=== PATIENT | male | born 1950 | race Caucasian/White ===

== ENCOUNTER → 2023-11-06 10:47 | Outpatient (REF) | payer MEDICARE, OTHER, SELFPAY ==
[2023-11-06 12:03] LABS: % Basophils 0.7 % (0-2); % Eosinophils 2.5 % (0-6); % Immature Granulocytes 1.9 % (0-0.5); % Lymphocytes 24.6 % (20.5-51.1); % Monocytes 8.7 % (1.7-9.3); % Neutrophils 61.6 % (42.2-75.2); Absolute Basophils 0.1 10^3/uL (0-0.2); Absolute Eosinophils 0.2 10^3/uL (0-0.7); Absolute Immature Granulocytes 0.1 10^3/uL (0-0.05); Absolute Lymphocytes 1.7 10^3/uL (1.2-3.4); Absolute Monocytes 0.6 10^3/uL (0.1-0.6); Absolute Neutrophils 4.2 10^3/uL (1.4-6.5); Hematocrit 38.5 % (39.0-52.0); Hemoglobin 12.8 g/dL (13.0-18.0); Mean Corp Hgb Conc. 33.2 g/dL (33.0-37.0); Mean Corpuscular Hgb 31.1 pg (27.0-31.0); Mean Corpuscular Volume 93.4 fL (80.0-94.0); Mean Platelet Volume 9.6 fL (7.4-10.4); Nucleated Red Blood Cells % 0.9 % (-); Platelet Count 144 10^3/uL (130-400); Red Blood Cell Count 4.12 10^6/uL (4.70-6.10); Red Cell Dist. Width 15.3 % (11.5-14.5); White Blood Cell Count 6.9 10^3/uL (4.8-10.8)
[2023-11-06 12:26] LABS: ALT (SGPT) 35 U/L (0-50); AST (SGOT) 41 U/L (17-59); Albumin 4.7 g/dl (3.5-5.0); Alkaline Phosphatase 116 U/L (38-126); Blood Urea Nitrogen 21 mg/dl (9-20); Carbon Dioxide 27 mmol/L (22-30); Chloride 102 mmol/L (98-107); Glucose 99 mg/dl (70-99); Potassium 4.5 mmol/L (3.5-5.1); Sodium 139 mmol/L (135-145); Total Bilirubin 0.6 mg/dl (0.2-1.3); eGFR > 60.00
[2023-11-06 12:36] LABS: LDH 292 U/L (120-246)
[2023-11-08 00:19] LABS: IgG 411 mg/dl (700-1600)
[2023-11-08 00:50] LABS: IgA < 50 mg/dl (70-400); IgM < 25 mg/dl (40-230)
== END ==
LOC: REG 10:47
PROVIDERS: ATTENDING PHYSICIAN Internal Medicine Hematology & Oncology; FAMILY PHYSICIAN Family Medicine
DX: C91.10 Chronic lymphocytic leukemia of B-cell type not having achieved remission (principal); D80.1 Nonfamilial hypogammaglobulinemia; C44.310 Basal cell carcinoma of skin of unspecified parts of face
CPT/HCPCS: 36415; 80053; 82784; 83615; 85025

== ENCOUNTER → 2023-12-21 16:17 | Outpatient (REF) | payer MEDICARE, OTHER, SELFPAY | LOC: HWRAD 16:17 | PROVIDERS: ATTENDING PHYSICIAN Family Medicine | DX: R05.3 Chronic cough (principal) | CPT/HCPCS: 71046 ==

== ENCOUNTER → 2023-12-24 11:47 | Outpatient (REF) | payer MEDICARE, OTHER, SELFPAY ==
[2023-12-24 14:40] LABS: PSA, Total - Diagnostic 1.46 ng/ml (0.0-4.0)
== END ==
LOC: REG 11:47
PROVIDERS: ATTENDING PHYSICIAN Specialist; FAMILY PHYSICIAN Family Medicine
DX: C61 Malignant neoplasm of prostate (principal)
CPT/HCPCS: 36415; 84153

== ENCOUNTER → 2023-12-26 11:59 | Outpatient (REF) | payer MEDICARE, OTHER, SELFPAY | LOC: HWRAD 11:59 | PROVIDERS: ATTENDING PHYSICIAN Internal Medicine Rheumatology; FAMILY PHYSICIAN Family Medicine | DX: M47.9 Spondylosis, unspecified (principal) | CPT/HCPCS: 72070 ==

== ENCOUNTER → 2023-12-31 07:34 | Outpatient (REF) | payer MEDICARE, OTHER, SELFPAY | LOC: EMG 07:34 | PROVIDERS: ATTENDING PHYSICIAN Orthopaedic Surgery; FAMILY PHYSICIAN Family Medicine | DX: R20.0 Anesthesia of skin (principal) | CPT/HCPCS: 95886; 95909 ==

== ENCOUNTER → 2024-01-18 16:07 | Outpatient (REF) | payer MEDICARE, OTHER, SELFPAY ==
[2024-01-18 18:17] LABS: TSH Reflex To Free T4 4.64 uIU/ml (0.47-4.68)
== END ==
LOC: REG 16:07
PROVIDERS: ATTENDING PHYSICIAN Internal Medicine Cardiovascular Disease; FAMILY PHYSICIAN Family Medicine
DX: R00.2 Palpitations (principal)
CPT/HCPCS: 36415; 84443

== ENCOUNTER → 2024-01-24 10:40 | Outpatient (REF) | payer MEDICARE, OTHER, SELFPAY | LOC: RCS 10:40 | PROVIDERS: ATTENDING PHYSICIAN Internal Medicine Cardiovascular Disease; FAMILY PHYSICIAN Family Medicine | DX: R00.2 Palpitations (principal) | CPT/HCPCS: 93225; 93226 ==

== ENCOUNTER → 2024-02-19 13:47 | Outpatient (REF) | payer MEDICARE, OTHER, SELFPAY | LOC: RCS 13:47 | PROVIDERS: ATTENDING PHYSICIAN Internal Medicine Cardiovascular Disease; FAMILY PHYSICIAN Family Medicine | DX: R00.2 Palpitations (principal); I34.0 Nonrheumatic mitral (valve) insufficiency; I27.20 Pulmonary hypertension, unspecified; I35.0 Nonrheumatic aortic (valve) stenosis | CPT/HCPCS: 93306 ==

== ENCOUNTER → 2024-02-21 15:56 | Outpatient (REF) | payer MEDICARE, OTHER, SELFPAY | LOC: MRI 3T 15:56 | PROVIDERS: ATTENDING PHYSICIAN Orthopaedic Surgery; FAMILY PHYSICIAN Family Medicine | DX: M54.12 Radiculopathy, cervical region (principal) | CPT/HCPCS: 72141 ==

== ENCOUNTER → 2024-03-05 07:46 | Outpatient (REF) | payer MEDICARE, OTHER, SELFPAY ==
[2024-03-05 09:05] LABS: % Basophils 0.7 % (0-2); % Eosinophils 2.8 % (0-6); % Immature Granulocytes 3.1 % (0-0.5); % Lymphocytes 31.6 % (20.5-51.1); % Monocytes 8.6 % (1.7-9.3); % Neutrophils 53.2 % (42.2-75.2); Absolute Basophils 0.1 10^3/uL (0-0.2); Absolute Eosinophils 0.2 10^3/uL (0-0.7); Absolute Immature Granulocytes 0.2 10^3/uL (0-0.05); Absolute Lymphocytes 2.2 10^3/uL (1.2-3.4); Absolute Monocytes 0.6 10^3/uL (0.1-0.6); Absolute Neutrophils 3.6 10^3/uL (1.4-6.5); Hematocrit 32.4 % (39.0-52.0); Hemoglobin 10.9 g/dL (13.0-18.0); Mean Corp Hgb Conc. 33.6 g/dL (33.0-37.0); Mean Corpuscular Hgb 31.5 pg (27.0-31.0); Mean Corpuscular Volume 93.6 fL (80.0-94.0); Mean Platelet Volume 9.2 fL (7.4-10.4); Platelet Count 145 10^3/uL (130-400); Red Blood Cell Count 3.46 10^6/uL (4.70-6.10); Red Cell Dist. Width 16.3 % (11.5-14.5); White Blood Cell Count 6.8 10^3/uL (4.8-10.8)
[2024-03-05 10:25] LABS: ALT (SGPT) 45 U/L (0-50); AST (SGOT) 48 U/L (17-59); Albumin 4.8 g/dl (3.5-5.0); Alkaline Phosphatase 152 U/L (38-126); Blood Urea Nitrogen 23 mg/dl (9-20); Calcium 9.9 mg/dl (8.4-10.2); Carbon Dioxide 26 mmol/L (22-30); Chloride 103 mmol/L (98-107); Glucose 88 mg/dl (70-99); LDH 290 U/L (120-246); Potassium 4.4 mmol/L (3.5-5.1); Sodium 138 mmol/L (135-145); Total Bilirubin 0.7 mg/dl (0.2-1.3); Total Protein 7.1 g/dl (6.3-8.2); eGFR > 60.00
[2024-03-05 10:27] LABS: PSA, Total - Diagnostic 1.22 ng/ml (0.0-4.0)
[2024-03-05 13:59] LABS: Reticulocyte Count 2.7 % (0.4-2.8)
[2024-03-05 15:37] LABS: Iron 165 ug/dl (49-181)
[2024-03-05 15:41] LABS: Folate 15.3 ng/ml (2.76-20); Vitamin B12 907 pg/ml (239-931)
[2024-03-05 15:49] LABS: Percent Saturation 53 % (20-50); Total Iron Binding Capacity 310 ug/dl (261-462)
[2024-03-06 01:27] LABS: IgG 335 mg/dl (700-1600)
[2024-03-06 03:00] LABS: IgA < 50 mg/dl (70-400); IgM < 25 mg/dl (40-230)
[2024-03-07 17:55] LABS: Haptoglobin 246 mg/dL (30-200)
== END ==
LOC: REG 07:46
PROVIDERS: ATTENDING PHYSICIAN Internal Medicine Hematology & Oncology; FAMILY PHYSICIAN Family Medicine; REFERRING PHYSICIAN Specialist
DX: C61 Malignant neoplasm of prostate (principal); C91.10 Chronic lymphocytic leukemia of B-cell type not having achieved remission; D80.1 Nonfamilial hypogammaglobulinemia; C44.320 Squamous cell carcinoma of skin of unspecified parts of face; D50.9 Iron deficiency anemia, unspecified; D51.9 Vitamin B12 deficiency anemia, unspecified
CPT/HCPCS: 36415; 80053; 82607; 82728; 82746; 82784; 83010; 83540; 83550; 83615; 84153; 85025; 85045

== ENCOUNTER → 2024-03-10 13:13 | Outpatient (REF) | payer MEDICARE, OTHER, SELFPAY | LOC: RAD 13:13 | PROVIDERS: ATTENDING PHYSICIAN Physical Medicine & Rehabilitation; FAMILY PHYSICIAN Family Medicine | DX: R22.1 Localized swelling, mass and lump, neck (principal) | CPT/HCPCS: 72127; Q9967 ==

== ENCOUNTER → 2024-04-28 11:39 | Outpatient (REF) | payer MEDICARE, OTHER, SELFPAY | LOC: PAVMRI 11:39 | PROVIDERS: ATTENDING PHYSICIAN Neurological Surgery; FAMILY PHYSICIAN Family Medicine | DX: G95.89 Other specified diseases of spinal cord (principal) | CPT/HCPCS: 72156; A9575 ==

== ENCOUNTER → 2024-05-15 09:29 | Outpatient (REF) | payer MEDICARE, OTHER, SELFPAY ==
[2024-05-15 09:57] LABS: Hematocrit 33.5 % (39.0-52.0); Hemoglobin 11.6 g/dL (13.0-18.0); Mean Corp Hgb Conc. 34.6 g/dL (33.0-37.0); Mean Corpuscular Hgb 32.8 pg (27.0-31.0); Mean Corpuscular Volume 94.6 fL (80.0-94.0); Mean Platelet Volume 9.7 fL (7.4-10.4); Platelet Count 171 10^3/uL (130-400); Red Blood Cell Count 3.54 10^6/uL (4.70-6.10); Red Cell Dist. Width 15.9 % (11.5-14.5); White Blood Cell Count 8.7 10^3/uL (4.8-10.8)
[2024-05-15 10:04] VITALS: BP 157/100; BP_SYST 69
[2024-05-15 10:04] LABS: PT 13.2 Sec (11.4-14.6)
[2024-05-15 11:14] VITALS: BP 148/90; BP_SYST 61
[2024-05-15 11:41] VITALS: BP 159/80
== END ==
LOC: RADI 09:29
PROVIDERS: ATTENDING PHYSICIAN Neurological Surgery; FAMILY PHYSICIAN Family Medicine
DX: C49.0 Malignant neoplasm of connective and soft tissue of head, face and neck (principal); D68.8 Other specified coagulation defects
CPT/HCPCS: 88305; 20206; 36415; 76942; 85027; 85610; 88333; 88341; 88342; 99152; 99153

== ENCOUNTER → 2024-06-23 16:42 | Outpatient (REF) | payer MEDICARE, OTHER, SELFPAY ==
[2024-06-23 19:25] LABS: PSA, Total - Diagnostic 1.32 ng/ml (0.0-4.0)
== END ==
LOC: REG 16:42
PROVIDERS: ATTENDING PHYSICIAN Specialist; FAMILY PHYSICIAN Family Medicine
DX: C61 Malignant neoplasm of prostate (principal)
CPT/HCPCS: 36415; 84153

== ENCOUNTER → 2024-09-15 13:16 | Outpatient (REF) | payer MEDICARE, OTHER, SELFPAY | LOC: PAVMRI 13:16 | PROVIDERS: ATTENDING PHYSICIAN Internal Medicine; FAMILY PHYSICIAN Family Medicine | DX: C80.1 Malignant (primary) neoplasm, unspecified (principal) | CPT/HCPCS: 72158; A9575 ==

== ENCOUNTER → 2024-10-03 15:15 | Outpatient (REF) | payer MEDICARE, OTHER, SELFPAY | LOC: RAD 15:15 | PROVIDERS: ATTENDING PHYSICIAN Internal Medicine; FAMILY PHYSICIAN Family Medicine | DX: C80.1 Malignant (primary) neoplasm, unspecified (principal) | CPT/HCPCS: 70491; 71260; 74177; Q9967 ==

== ENCOUNTER 2024-10-12 18:02 | Inpatient (IN) | payer MEDICARE, OTHER, SELFPAY ==
[2024-10-12] VITALS (18 sets, daily range): BP systolic 126–186; BP diastolic 78–125; BMI 25.3
--- NOTE | 2024-10-12 11:53 | ED.GENMED ---
History of Present Illness
General
Chief Complaint: Weakness
Source: patient
Exam Limitations: none
Time Seen by Provider: 10/12/24 11:45
History of Present Illness
History of Present Illness:
See MDM
Past History
Past History
ED Past Medical History: Cancer
ED Past Surgical History: None
Social History
Tobacco: Non-smoker
Alcohol: None
Drug: None
Personal:
Living: with family
Phy Exam
Physical Exam
Physical Exam:
See MDM
Course
Orders/Labs/Results
Orders:
Orders
10/12/24 11:51
0.9% Sodium Chloride 1000 ml [Nss] 1,000 ml IV BOLUS
CR Chest - 2 Views Urgent
Comment:
Reason For Exam: generalized weakness, cough
10/12/24 11:52
Electrocardiogram (*1) Urgent
Reason for Study: Fatigue / Weakness
EKG- Treatment ONCE
10/12/24 12:03
COVID-19 Antigen Urgent
Source: Nasal Swab
Complete Blood Count/With Diff Urgent
Comprehensive Metabolic Panel Urgent
Influenza A+B Rapid Molecular Urgent
[facility] Source: Nasal Swab
Specimen Description:
10/12/24 12:34
Urinalysis Reflex To Culture Urgent
Date Specimen was Collected: 10/12/24
Time Specimen was Collected: 12:31
Urine Microscopic Reflex Cult Urgent
Urine Culture Urgent
[facility]ION Source: U
Specimen Description:
Date Specimen was Collected: 10/12/24
Time Specimen was Collected: 12:31
10/12/24 16:11
Cefepime HCl [Maxipime] 1,000 mg IV NOW STA
Abnormal Lab Results
10/12/24 10/12/24
12:03 12:34
RBC 4.08 L 10^6/uL
(4.70-6.10)
Hgb 11.7 L g/dL
(13.0-18.0)
Hct 34.5 L %
(39.0-52.0)
RDW 16.4 H %
(11.5-14.5)
Abs Immat Gran (auto) 0.8 H 10^3/uL
(0-0.05)
Absolute Neuts (auto) 7.1 H 10^3/uL
(1.4-6.5)
Absolute Lymphs (auto) 1.0 L 10^3/uL
(1.2-3.4)
Absolute Monos (auto) 1.2 H 10^3/uL
(0.1-0.6)
Immature Gran % 7.1 H %
(0-0.5)
Lymphocytes % 9.8 L %
(20.5-51.1)
Monocytes % 11.3 H %
(1.7-9.3)
Sodium 129 L mmol/L
(135-145)
Carbon Dioxide 21 L mmol/L
(22-30)
Creatinine 0.6 L mg/dL
(0.7-1.3)
AST 81 H U/L
(17-59)
ALT 90 H U/L
(0-50)
Alkaline Phosphatase 342 H U/L
(38-126)
Leukocyte Esterase Rfl 2+ A
(Negative)
Urine WBC (Reflex) 11-15 A /HPF
(0-5)
Urine Bacteria (Reflex) Few A
(Negative)
10/12/24 12:03
10/12/24 12:03
Vital Signs
Initial and Last Documented VS:
Initial Vital Signs
Temp Pulse Resp Pulse Ox
98.7 F 67 16 99
10/12/24 11:50 10/12/24 11:50 10/12/24 11:50 10/12/24 11:50
Last Documented Vital Signs
Temp Pulse Resp BP Pulse Ox
98.7 F 73 23 168/107 97
10/12/24 11:50 10/12/24 15:30 10/12/24 14:51 10/12/24 15:00 10/12/24 15:30
MDM/Problems Addressed
Differential Diagnosis Includes:
HPI and MDM Narrative:
74-year-old male presenting for generalized weakness and fatigue. Patient does have a history of malignant cancer. Prior records indicate a recent CT scan showing worsening malignancy. He complains of generalized fatigue and malaise. He does
acknowledge that he is urinating more frequently but denies fever or pain with urination. He denies abdominal pain. Patient admits to a slight cough but denies shortness of breath.
IV fluids started by EMS. Will continue IV fluids. Will obtain basic blood work looking for metabolic abnormalities. Will obtain chest x-ray given the mild cough will obtain viral testing. Will check urinalysis
Physical exam
General: Weak and fatigued
HEENT: protecting airway. Dry mucous membrane
Neck: appears supple
CV: No evidence of cyanosis. Regular rate and rhythm
Resp: No accessory muscle use
Abd: Non-distended. Soft nontender
Extremities: No deformities
Neuro: alert
Psych: Normal affect
Skin: Intact
Problems Addressed including Acute and Chronic Conditions affecting care:
1. Generalized fatigue
Acuity: acute
Prognosis: stable
Details: Will obtain basic blood work and urinalysis
2. Cough
Acuity: acute
Prognosis: stable
Details: Obtain viral testing and chest x-ray
3. Dehydration
Acuity: acute
Prognosis: stable
Details: Will continue IV fluids
Updates
Blood work consistent with mild hyponatremia. Patient still not feeling well after IV fluids. Urinalysis concerning for developing infection. He is somewhat immunocompromised. Will start antibiotics and admit
Differential Diagnosis (but not limited to): Influenza, dehydration, viral illness, UTI
Testing considered: CT head but denies headache and has no focal deficits
Drug therapy (if applicable): OTC meds, please see d/c instruction regarding Rx drugs
Amount and/or Complexity of Data Reviewed
Clinical info obtained from: Patient
External data reviewed: Recent CT scan shows worsening malignancy
Labs I independently reviewed (but not limited to): Mild hyponatremia
Radiology: X-ray independently reviewed: Chest x-ray clear
Pulse Ox: not hypoxic
EKG independently reviewed: Sinus rhythm, PVCs, normal axis
Fisher Eel Spear: N/A
Critical Care: N/A
Risk of Complication:
Social Determinants of health: Good social support
Discussed with other providers: Hospitalist
Escalation of Care includes Admit/Obs: Given immunocompromise with dehydration and UTI, will admit
Occasional wrong word or 'sound a like' substitutions may have occurred due to the inherent limitations of voice recognition software. Read the chart carefully and recognize, using context, where substitutions have occurred.
*Critical Care Note
Total Time (30-74mins, 75-104mins- exclusive of procedures): Not Applicable
ED Attending Note
-
Portions of this chart may have been created with voice recognition software.� Occasional wrong word or��sound alike� substitutions may have occurred due to the inherent limitations of voice recognition software.
Discharge Plan
Departure
Patient Disposition: Admit
Date of Disposition: 10/12/24
Time of Disposition: 16:17
Admit to: Med/Surg
Presentation/result/management discussed w/ accepting MD/DO: Hospitalist
Discharge Problem:
Acute hyponatremia, Acute UTI
Prescriptions:
No Action
niacinamide [Niacin (niacinamide)] 500 MG tablet
500 mg PO BID
montelukast 10 MG tablet
10 mg PO HS
teoqsackcpx-uiqusueek-zpu C-Mn 1 TAB tablet
1 tab PO DAILY
metoprolol tartrate 25 MG tablet
50 mg PO DAILY
fluticasone propion-salmeterol 1 EACH aerosol powdr breath activated
1 ea IH BID
Multivitamin
1 tab PO DAILY
acetaminophen 500 mg Tablet
500 mg PO Q6H PRN (Reason: pain)
ibuprofen 400 mg Tablet
400 mg PO Q6H PRN (Reason: pain)
Referrals:
Roxi Olivarez PA [Family Provider] -
Interventions
Interventions:
*Risk Screen - Suicide Last Done: 10/12/24 11:55
*General Assessment Last Done: 10/12/24 11:55
*Neglect/Abuse Screening Last Done: 10/12/24 11:55
ED- Fall Risk Assessment Last Done: 10/12/24 11:55
*ED COVID-19 Vaccine History Last Done: 10/12/24 11:55
ED- Cardiac Assessment Last Done: 10/12/24 12:28
ED- Neurological Assessment Last Done: 10/12/24 12:28
ED- Pulmonary Assessment Last Done: 10/12/24 12:28
Discharge Date and Time
Print Language: NICARAGUAN
[2024-10-12] MEDS: NSS 1000 IV ×2 (12:10→21:46)
[2024-10-12 12:15] LABS: Hematocrit 34.5 % (39.0-52.0); Hemoglobin 11.7 g/dL (13.0-18.0); Mean Corp Hgb Conc. 33.9 g/dL (33.0-37.0); Mean Corpuscular Hgb 28.7 pg (27.0-31.0); Mean Corpuscular Volume 84.6 fL (80.0-94.0); Mean Platelet Volume 8.9 fL (7.4-10.4); Platelet Count 238 10^3/uL (130-400); Red Blood Cell Count 4.08 10^6/uL (4.70-6.10); Red Cell Dist. Width 16.4 % (11.5-14.5); White Blood Cell Count 10.6 10^3/uL (4.8-10.8)
[2024-10-12 12:35] LABS: ALT (SGPT) 90 U/L (0-50); AST (SGOT) 81 U/L (17-59); Albumin 4.1 g/dl (3.5-5.0); Alkaline Phosphatase 342 U/L (38-126); Blood Urea Nitrogen 14 mg/dl (9-20); Calcium 8.8 mg/dl (8.4-10.2); Carbon Dioxide 21 mmol/L (22-30); Chloride 98 mmol/L (98-107); Estimated Creatinine Clearance 101 ml/min; Glucose 93 mg/dl (70-99); Potassium 4.2 mmol/L (3.5-5.1); Sodium 129 mmol/L (135-145); Total Bilirubin 0.9 mg/dl (0.2-1.3); Total Protein 6.4 g/dl (6.3-8.2); eGFR > 60.00
[2024-10-12 12:53] LABS: COVID-19 Antigen Negative (Negative)
--- NOTE | 2024-10-12 13:34 | EDRN ---
Dr. Ferrer in room w/ pt at this time.
[2024-10-12 13:54] LABS: Urine Albumin Negative (Neg - Trace); Urine Bilirubin Negative (Negative); Urine Character Clear (Clear); Urine Color Yellow; Urine Glucose Negative (Negative); Urine Ketone Negative (Negative); Urine Leukocyte 2+ (Negative); Urine Nitrite Negative (Negative); Urine Occult Blood Negative (Negative); Urine Urobilinogen Negative (Neg - 1+)
[2024-10-12 14:24] LABS: Urine Bacteria Few (Negative); Urine Red Blood Cell 0-2 /HPF (0-2); Urine Squamous Cell 0-2 /LPF (Few)
[2024-10-12 14:26] LABS: % Basophils 0.9 % (0-2); % Eosinophils 4.3 % (0-6); % Immature Granulocytes 7.1 % (0-0.5); % Lymphocytes 9.8 % (20.5-51.1); % Monocytes 11.3 % (1.7-9.3); % Neutrophils 66.6 % (42.2-75.2); Absolute Basophils 0.1 10^3/uL (0-0.2); Absolute Eosinophils 0.5 10^3/uL (0-0.7); Absolute Immature Granulocytes 0.8 10^3/uL (0-0.05); Absolute Monocytes 1.2 10^3/uL (0.1-0.6); Absolute Neutrophils 7.1 10^3/uL (1.4-6.5); Nucleated Red Blood Cells % 0.9 % (-)
[2024-10-12] MEDS: MAXIPIME 1000 MG IV (16:34)
--- NOTE | 2024-10-12 17:05 | EDRN ---
Pt spilled urinal w/ bed and bedclothes changed and good pericare administered at this time.
--- NOTE | 2024-10-12 17:30 | EDRN ---
Dr. Kaiser in room w/ pt at this time.
--- NOTE | 2024-10-12 17:45 | HPS.HSE ---
Family Physician
-
Family Physician: Roxi Olivarez
Chief Complaint
-
Weakness, failure to thrive
History of Present Illness
74-year-old male here complaining of progressive weakness and failure to thrive for the past 5 days. Denies falls or injuries.
Denies dysuria or pain with urination but has had polyuria that started several days ago. Denies fevers, chills, nausea or vomiting. Denies diarrhea.
Was ambulating with a cane up until Sunday of last week when he switched to using a walker. Also has progressive anorexia. No reported weight loss.
Is getting immunotherapy for metastatic pleomorphic sarcoma at the [facility]. Next dose is due on Sunday, October 13.
Recent [place] body CT showed progression of metastatic disease throughout his axial skeleton.
Is on palliative care but hospice has not been mentioned so far by his treating oncologist.
Medical History
Past Medical History
Past Medical History: Reports Other
Additional Past Medical History:
Metastatic pleomorphic sarcoma
CLL, B-cell
Prostate cancer
Essential hypertension
GERD
Nephrolithiasis
Moderate/severe mitral regurgitation
Aortic sclerosis
SVT
JIMMIE
Skin cancer
Diverticulosis
Left ureteral stricture
Past Surgical History: Reports Other
Additional Past Surgical History:
TURP
Umbilical hernia repair
Parotid surgery for basal cell cancer
Bilateral cataracts
Social History
Tobacco: Non-smoker
Alcohol: None
Drug: None
Personal:
Living: With Family
Family History
Family History: Not pertinent
Allergies / Home Medications
Allergies reflects when Allergies were last updated in [employer].
Home Medications with original date entered in [employer]
Allergy/Medication List:
Allergies
Allergy/AdvReac Type Severity Reaction Status Date / Time
amoxicillin Allergy chills,diar Verified 10/12/24 11:43
beatris,vomiti
ng
seasonal Allergy congestion Uncoded 10/12/24 11:43
Home Medications
fluticasone 232 mcg-salmeterol 14 mcg/actuation breath activated powdr 1 ea IH BID 11/10/21
pldpxiogiib-wvaclshgs-nyu C-Mn 750 mg-600 mg-55 mg-5 mg tablet 1 tab PO DAILY 11/10/21
metoprolol tartrate 25 mg tablet 50 mg PO DAILY 11/10/21
montelukast 10 mg tablet 10 mg PO HS 11/10/21
niacinamide 500 mg tablet (Niacin (niacinamide)) 500 mg PO BID 11/10/21
Multivitamin 1 tab PO DAILY 12/20/21
acetaminophen 500 mg tablet 500 mg PO Q6H PRN pain 05/15/24
ibuprofen 400 mg tablet 400 mg PO Q6H PRN pain 05/15/24
Review of Systems
-
History Source: Patient
A 12 point ROS was completed and negative except as noted: Yes
Physical Exam
Vital Signs
Vital Signs
Temp Pulse Resp BP Pulse Ox
98.7 F 73 23 168/107 97
10/12/24 11:50 10/12/24 15:30 10/12/24 14:51 10/12/24 15:00 10/12/24 15:30
Physical Exam
General: No Apparent Distress, Comfortable and Appears Chronically Ill
HEENT: NormoCephalic and Anicteric; No Moist mucous membranes
Respiratory: Clear
Cardiac: S1/S2 and Regular Rhythm
GI: Soft, Non Tender and Non Distended
Genito-urinary: Deferred by me
Musculoskeletal: No Clubbing, No Cyanosis and No Edema
Skin: Warm and Dry
Neuro: AO x 3
Hematologic/Lymphatic: No Lymphadenopathy
Psych: Calm
Laboratory Results
-
10/12/24 12:03
10/12/24 12:03
Laboratory Results
Total Bilirubin 0.9 mg/dl (0.2-1.3) 10/12/24 12:03
AST 81 U/L (17-59) H 10/12/24 12:03
ALT 90 U/L (0-50) H 10/12/24 12:03
Alkaline Phosphatase 342 U/L (38-126) H 10/12/24 12:03
Impression/Plan
-
Generalized weakness -with failure to thrive. Suspect progression of underlying malignancy as the etiology. Volume depletion appears to be contributing given anorexia and poor oral intake. Rule out infection such as UTI.
Admit to [facility]. IV fluids ordered. Check urine culture. Continue antibiotics empirically.
Chest x-ray notes atelectasis.
PT/OT.
Possible UTI -pyuria noted on urinalysis along with frequency. Urine culture sent. Continue empiric antibiotics.
Hyponatremia -suspect hypovolemic. Sodium 129. Normal saline ordered. Check urine studies. Check TSH, cortisol.
Elevated transaminases/alkaline phosphatase -bilirubin normal. Check GGT. Recent CT scan dated 10/03/2024 showed intrahepatic biliary duct dilation within the posterior right hepatic lobe. No discrete obstructing lesion visualized. 1.4 cm
hypodensity within the posterior hepatic dome. Bile ducts and gallbladder and pancreas were normal. Recheck LFTs in the morning.
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 Overall prognosis appears poor. Encouraged patient to address goals of care and prognosis with his oncologist.
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
Essential hypertension with hypertensive urgency -resume metoprolol. Suspect uncontrolled pressure related to pain.
Chronic normocytic anemia -suspect related to malignancy. Hemoglobin at baseline.
GERD
Nephrolithiasis
Diverticulosis
Full code
[2024-10-12 18:11] LABS: Osmolality Urine 253 mOsm/kg (300-900)
[2024-10-12 18:20] LABS: Urine Sodium 96 mmol/L (30-90)
--- NOTE | 2024-10-12 18:23 | EDRN ---
Dr. Kaiser was TT'd at this time that med rec is now completed on this pt.
[2024-10-12 18:27] LABS: GGTP 690 U/L (15-73)
[2024-10-12 19:15] LABS: TSH 4.25 uIU/ml (0.47-4.68)
[2024-10-12] MEDS: COLACE 100 MG PO (22:32)
[2024-10-12] MEDS: NEURONTIN 200 MG PO (22:33)
[2024-10-12] MEDS: SINGULAIR 10 MG PO (22:33)
[2024-10-12] MEDS: STERILE WATER FOR INJECTION 10 ML IV (22:33)
[2024-10-12] MEDS: ROCEPHIN 1000 MG IV (22:33)
[2024-10-12] MEDS: LOVENOX 40 MG SC (22:34)
[2024-10-12] MEDS: TOPROL XL 75 MG PO (22:34)
[2024-10-12] MEDS: NEURONTIN 100 MG PO (22:36)
[2024-10-12] MEDS: TYLENOL 650 MG PO (23:10)
--- NOTE | 2024-10-13 00:02 | PTCARENOTE ---
2129 pt rec'vd from ER, aaox3, IVF meliza Johnson AC, denies pain, oriented to unit,.
--- NOTE | 2024-10-13 06:13 | PTCARENOTE ---
Buprenorphine patch 5mg on the back of pts right shoulder..it does not have a date so don't know when it needs to be changed. In reviewing his home med profile the patch is not on profile, I left VM for his to contact us with the date she
applied it and [employer] notified waiting for call.
[2024-10-13 07:25] VITALS: BP 144/98
[2024-10-13 09:03] LABS: ALT (SGPT) 80 U/L (0-50); AST (SGOT) 54 U/L (17-59); Alkaline Phosphatase 345 U/L (38-126); Blood Urea Nitrogen 13 mg/dl (9-20); Calcium 8.5 mg/dl (8.4-10.2); Carbon Dioxide 20 mmol/L (22-30); Chloride 100 mmol/L (98-107); Estimated Creatinine Clearance 101 ml/min; Glucose 86 mg/dl (70-99); Sodium 134 mmol/L (135-145); Total Bilirubin 0.7 mg/dl (0.2-1.3); Total Protein 6.2 g/dl (6.3-8.2); eGFR > 60.00
[2024-10-13] MEDS: NEURONTIN 200 MG PO ×3 (09:17→21:43)
[2024-10-13] MEDS: TOPROL XL 75 MG PO ×2 (09:17→20:53)
[2024-10-13] MEDS: COLACE PO ×2 (09:17→09:20)
[2024-10-13 11:15] VITALS: BP 160/98; PULSE 74; O2SAT 96
[2024-10-13 11:20] VITALS: BP 160/98; PULSE 75; O2SAT 97
--- NOTE | 2024-10-13 12:03 | W.PN.HOSP.TC ---
Today's Communication/Plan
-
Monitor vital signs see plan
PT/OT
Discussed with spouse at bedside
Continue antibiotics
Follow urine culture
Assessment / Plan
Assessment / Plan
General: No Apparent Distress, Comfortable and Appears Chronically Ill
HEENT: NormoCephalic and Anicteric; No Moist mucous membranes
Respiratory: Clear
Cardiac: S1/S2 and Regular Rhythm
GI: Soft, Non Tender and Non Distended
Musculoskeletal: No Edema
Neuro: AO x 3
Psych: Calm
Generalized weakness -with failure to thrive. Suspect progression of underlying malignancy as the etiology. Volume depletion appears to be contributing given anorexia and poor oral intake. Also suspect secondary to urinary tract infection.
Urine culture pending, continue with antibiotics
Chest x-ray notes atelectasis.
PT/OT.
Possible UTI -pyuria noted on urinalysis along with frequency. Urine culture sent. Continue empiric antibiotics.
Hyponatremia -monitor
Elevated transaminases/alkaline phosphatase -bilirubin normal. Check GGT. Recent CT scan dated 10/03/2024 showed intrahepatic biliary duct dilation within the posterior right hepatic lobe. No discrete obstructing lesion visualized. 1.4 cm
hypodensity within the posterior hepatic dome. Bile ducts and gallbladder and pancreas were normal. monitor lft's
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 Overall prognosis appears poor. Encouraged patient to address goals of care and prognosis with his oncologist.
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
Essential hypertension with hypertensive urgency -resumed metoprolol. Suspect uncontrolled pressure related to pain.
Chronic normocytic anemia -suspect related to malignancy. Hemoglobin at baseline.
GERD
Nephrolithiasis
Diverticulosis
Full code
These discussed with spouse at bedside. Patient started seeing palliative care from past couple weeks. Patient will be seeing his oncologist soon for further management
Anticipated Discharge: 24 - 48 hours
Subjective/Interval History
-
Date of Service: October 13, 2024
has some crampy pain
Objective Data
-
Labs:
Laboratory Results
10/13/24
07:31
Sodium 134 L
Potassium 4.0
Chloride 100
Carbon Dioxide 20 L
BUN 13
Creatinine 0.6 L
Glucose 86
Calcium 8.5
Total Bilirubin 0.7
AST 54
ALT 80 H
Alkaline Phosphatase 345 H
Vital Signs:
Vital Signs
Temp Pulse Resp BP Pulse Ox
98.0 F 84 16 144/98 95
10/13/24 07:25 10/13/24 07:25 10/13/24 07:25 10/13/24 07:25 10/13/24 07:25
I&O
10/12/24 10/13/24 10/14/24
06:59 06:59 06:59
Intake Total 1080 / 1080
Output Total 2049
Balance -970 / -970
[2024-10-13 15:05] VITALS: BP 124/77
--- NOTE | 2024-10-13 15:12 | CM ---
Addendum entered by Diane Barroso 10/13/24 15:46:
Accepted by [facility] for home care needs
Original Note:
Adm dx - weakness/volume depletion
Met with pts at bedside - pt sleeping
Per pt was independent, ambulated with rolling walker or single point cane until approx this past week - became more weak
DME - single point cane, rolling walker, raised toilet seat
SNF - denies past hx
HH - current with [facility] - receives RN/OT/OT
Has ride at discharge
PCP - Dr Murphy
Pharm - [facility]
PT/OT recs - - Will send referral in [facility] for [facility]
Plan - anticipate home with [facility] - [facility]
[2024-10-13] MEDS: ADVAIR HFA 230/21 MCG INHALER INH (15:42)
[2024-10-13] MEDS: LOVENOX 40 MG SC (18:49)
[2024-10-13] MEDS: SINGULAIR 10 MG PO (18:49)
[2024-10-13] MEDS: TYLENOL 650 MG PO (18:50)
[2024-10-13] MEDS: ADVAIR HFA 230/21 MCG INHALER 2 PUFF INH (20:32)
[2024-10-13] MEDS: COLACE 100 MG PO (20:51)
[2024-10-13] MEDS: ROCEPHIN 1000 MG IV (21:43)
[2024-10-13] MEDS: NEURONTIN 100 MG PO (21:43)
[2024-10-13] MEDS: STERILE WATER FOR INJECTION 10 ML IV (21:44)
[2024-10-13 22:49] VITALS: BP 133/90
[2024-10-14 06:07] LABS: ALT (SGPT) 74 U/L (0-50); AST (SGOT) 59 U/L (17-59); Albumin 3.7 g/dl (3.5-5.0); Alkaline Phosphatase 313 U/L (38-126); Blood Urea Nitrogen 18 mg/dl (9-20); Calcium 8.9 mg/dl (8.4-10.2); Carbon Dioxide 22 mmol/L (22-30); Chloride 101 mmol/L (98-107); Estimated Creatinine Clearance 87 ml/min; Glucose 88 mg/dl (70-99); Potassium 4.2 mmol/L (3.5-5.1); Sodium 133 mmol/L (135-145); Total Bilirubin 0.5 mg/dl (0.2-1.3); eGFR > 60.00
[2024-10-14 06:16] LABS: Hematocrit 36.2 % (39.0-52.0); Hemoglobin 11.8 g/dL (13.0-18.0); Mean Corp Hgb Conc. 32.6 g/dL (33.0-37.0); Mean Corpuscular Hgb 28.6 pg (27.0-31.0); Mean Corpuscular Volume 87.7 fL (80.0-94.0); Mean Platelet Volume 8.9 fL (7.4-10.4); Platelet Count 249 10^3/uL (130-400); Red Blood Cell Count 4.13 10^6/uL (4.70-6.10); White Blood Cell Count 11.9 10^3/uL (4.8-10.8)
[2024-10-14 06:58] VITALS: BP 171/92
[2024-10-14] MEDS: ADVAIR HFA 230/21 MCG INHALER 2 PUFF INH ×2 (07:13→19:35)
[2024-10-14 08:02] LABS: % Eosinophils 3.3 % (0-6); % Immature Granulocytes 7.7 % (0-0.5); % Lymphocytes 8.9 % (20.5-51.1); % Monocytes 11.2 % (1.7-9.3); % Neutrophils 67.9 % (42.2-75.2); Absolute Basophils 0.1 10^3/uL (0-0.2); Absolute Eosinophils 0.4 10^3/uL (0-0.7); Absolute Immature Granulocytes 0.9 10^3/uL (0-0.05); Absolute Lymphocytes 1.1 10^3/uL (1.2-3.4); Absolute Monocytes 1.3 10^3/uL (0.1-0.6); Absolute Neutrophils 8.1 10^3/uL (1.4-6.5); Nucleated Red Blood Cells % 0.7 % (-)
[2024-10-14] MEDS: COLACE PO (08:48)
[2024-10-14] MEDS: NEURONTIN 200 MG PO ×3 (08:48→22:24)
[2024-10-14] MEDS: TOPROL XL 75 MG PO ×2 (08:48→20:06)
--- NOTE | 2024-10-14 11:21 | W.PN.HOSP.TC ---
Today's Communication/Plan
-
Monitor vital signs see plan
Continue with antibiotics
Follow urine culture for final sensitivities
PT/OT
Possible discharge tomorrow
Assessment / Plan
Assessment / Plan
General: No Apparent Distress, Comfortable and Appears Chronically Ill
HEENT: NormoCephalic and Anicteric; No Moist mucous membranes
Respiratory: Clear
Cardiac: S1/S2 and Regular Rhythm
GI: Soft, Non Tender and Non Distended
Musculoskeletal: No Edema
Neuro: AO x 3
Psych: Calm
Generalized weakness -with failure to thrive. Suspect progression of underlying malignancy as the etiology. Volume depletion appears to be contributing given anorexia and poor oral intake. Also suspect secondary to urinary tract infection.
Urine culture growing Enterococcus, continue with antibiotics
Chest x-ray notes atelectasis.
PT/OT.
Possible UTI -pyuria noted on urinalysis along with frequency. Urine culture sent. Continue empiric antibiotics.
Hyponatremia -monitor
Elevated transaminases/alkaline phosphatase -bilirubin normal. Check GGT. Recent CT scan dated 10/03/2024 showed intrahepatic biliary duct dilation within the posterior right hepatic lobe. No discrete obstructing lesion visualized. 1.4 cm
hypodensity within the posterior hepatic dome. Bile ducts and gallbladder and pancreas were normal. monitor lft's
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 Overall prognosis appears poor. Encouraged patient to address goals of care and prognosis with his oncologist.
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
Essential hypertension with hypertensive urgency -resumed metoprolol. Suspect uncontrolled pressure related to pain.
Chronic normocytic anemia -suspect related to malignancy. Hemoglobin at baseline.
GERD
Nephrolithiasis
Diverticulosis
Full code
Patient started seeing palliative care from past couple weeks. Patient will be seeing his oncologist soon for further management
Anticipated Discharge: Within 24 hours
Subjective/Interval History
-
Date of Service: October 14, 2024
denies pain
Objective Data
-
Labs:
Laboratory Results
10/14/24
05:02
WBC 11.9 H
Hgb 11.8 L
Hct 36.2 L
Plt Count 249
Sodium 133 L
Potassium 4.2
Chloride 101
Carbon Dioxide 22
BUN 18
Creatinine 0.7
Glucose 88
Calcium 8.9
Total Bilirubin 0.5
AST 59
ALT 74 H
Alkaline Phosphatase 313 H
Vital Signs:
Vital Signs
Temp Pulse Resp BP Pulse Ox
98.2 F 74 16 171/92 97
10/14/24 06:58 10/14/24 08:48 10/14/24 07:16 10/14/24 08:48 10/14/24 07:16
I&O
10/13/24 10/14/24 10/15/24
06:59 06:59 06:59
Intake Total 1080 / 1080 990 / 990
Output Total 2650 / 2650 600 / 600
Balance -1570 / -1570 390 / 390
[2024-10-14 15:07] VITALS: BP 145/74
[2024-10-14 16:28] VITALS: BP 146/92; PULSE 85; O2SAT 94
[2024-10-14] MEDS: SINGULAIR 10 MG PO (16:54)
[2024-10-14] MEDS: LOVENOX 40 MG SC (18:41)
[2024-10-14] MEDS: COLACE 100 MG PO (20:06)
[2024-10-14] MEDS: NEURONTIN 100 MG PO (22:24)
[2024-10-14] MEDS: STERILE WATER FOR INJECTION 10 ML IV (22:25)
[2024-10-14] MEDS: ROCEPHIN 1000 MG IV (22:25)
[2024-10-14 23:40] VITALS: BP 109/71
[2024-10-15 06:24] LABS: Hematocrit 35.1 % (39.0-52.0); Hemoglobin 11.5 g/dL (13.0-18.0); Mean Corp Hgb Conc. 32.8 g/dL (33.0-37.0); Mean Corpuscular Hgb 28.4 pg (27.0-31.0); Mean Corpuscular Volume 86.7 fL (80.0-94.0); Mean Platelet Volume 9.4 fL (7.4-10.4); Platelet Count 257 10^3/uL (130-400); Red Blood Cell Count 4.05 10^6/uL (4.70-6.10); White Blood Cell Count 12.5 10^3/uL (4.8-10.8)
[2024-10-15 06:50] LABS: ALT (SGPT) 86 U/L (0-50); AST (SGOT) 83 U/L (17-59); Albumin 3.6 g/dl (3.5-5.0); Alkaline Phosphatase 304 U/L (38-126); Blood Urea Nitrogen 25 mg/dl (9-20); Calcium 9.1 mg/dl (8.4-10.2); Carbon Dioxide 22 mmol/L (22-30); Chloride 100 mmol/L (98-107); Estimated Creatinine Clearance 87 ml/min; Glucose 83 mg/dl (70-99); Potassium 4.6 mmol/L (3.5-5.1); Sodium 132 mmol/L (135-145); Total Bilirubin 0.5 mg/dl (0.2-1.3); Total Protein 5.8 g/dl (6.3-8.2); eGFR > 60.00
[2024-10-15 07:15] VITALS: BP 141/96
[2024-10-15] MEDS: ADVAIR HFA 230/21 MCG INHALER 2 PUFF INH ×2 (07:46→20:00)
[2024-10-15 08:08] LABS: % Basophils 0.9 % (0-2); % Eosinophils 3.2 % (0-6); % Immature Granulocytes 6.1 % (0-0.5); % Monocytes 9.7 % (1.7-9.3); % Neutrophils 70.1 % (42.2-75.2); Absolute Basophils 0.1 10^3/uL (0-0.2); Absolute Eosinophils 0.4 10^3/uL (0-0.7); Absolute Immature Granulocytes 0.8 10^3/uL (0-0.05); Absolute Lymphocytes 1.3 10^3/uL (1.2-3.4); Absolute Monocytes 1.2 10^3/uL (0.1-0.6); Absolute Neutrophils 8.7 10^3/uL (1.4-6.5); Nucleated Red Blood Cells % 0.3 % (-)
[2024-10-15] MEDS: NON-FORMULARY ITEM 1 PATCH TRANSDERM (09:02)
[2024-10-15] MEDS: COLACE 100 MG PO ×2 (09:07→19:22)
[2024-10-15] MEDS: NEURONTIN 200 MG PO ×3 (09:07→21:17)
[2024-10-15] MEDS: TOPROL XL 75 MG PO ×2 (09:08→19:22)
--- NOTE | 2024-10-15 11:23 | W.PN.HOSP.TC ---
Today's Communication/Plan
-
Monitor vital signs see plan
Follow urine final sensitivities
Patient and spouse interested in possible rehab. manager solar notified
Monitor LFTs
Discussed with spouse at bedside
Assessment / Plan
Assessment / Plan
General: No Apparent Distress, Comfortable and Appears Chronically Ill
HEENT: NormoCephalic and Anicteric; No Moist mucous membranes
Respiratory: Clear
Cardiac: S1/S2 and Regular Rhythm
GI: Soft, Non Tender and Non Distended
Musculoskeletal: No Edema
Neuro: AO x 3
Psych: Calm
Generalized weakness -with failure to thrive. Suspect progression of underlying malignancy as the etiology. Volume depletion appears to be contributing given anorexia and poor oral intake. Also suspect secondary to urinary tract infection.
Urine culture growing Enterococcus, continue with antibiotics. Follow-up final sensitivities
Chest x-ray notes atelectasis.
PT/OT.
Possible UTI -pyuria noted on urinalysis along with frequency. Urine culture sent. Continue empiric antibiotics.
Hyponatremia -monitor
Elevated transaminases/alkaline phosphatase -bilirubin normal. Check GGT. Recent CT scan dated 10/03/2024 showed intrahepatic biliary duct dilation within the posterior right hepatic lobe. No discrete obstructing lesion visualized. 1.4 cm
hypodensity within the posterior hepatic dome. Bile ducts and gallbladder and pancreas were normal. monitor lft's. Patient will need repeat labs outpatient. Currently without any abdominal pain. Could also be secondary to metastatic sarcoma
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 Overall prognosis appears poor. Encouraged patient to address goals of care and prognosis with his oncologist.
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
Essential hypertension with hypertensive urgency -resumed metoprolol. Suspect uncontrolled pressure related to pain.
Chronic normocytic anemia -suspect related to malignancy. Hemoglobin at baseline.
GERD
Nephrolithiasis
Diverticulosis
Full code
Patient started seeing palliative care from past couple weeks. Patient will be seeing his oncologist soon for further management
PT/OT recommending home health. Patient and spouse interested in possible rehab. manager solar notified
Anticipated Discharge: Within 24 hours
Subjective/Interval History
-
Date of Service: October 15, 2024
Denies pain
Objective Data
-
Labs:
Laboratory Results
10/15/24
05:14
WBC 12.5 H
Hgb 11.5 L
Hct 35.1 L
Plt Count 257
Sodium 132 L
Potassium 4.6
Chloride 100
Carbon Dioxide 22
BUN 25 H
Creatinine 0.7
Glucose 83
Calcium 9.1
Total Bilirubin 0.5
AST 83 H
ALT 86 H
Alkaline Phosphatase 304 H
Vital Signs:
Vital Signs
Temp Pulse Resp BP Pulse Ox
97.7 F 78 16 141/96 98
10/15/24 07:15 10/15/24 09:08 10/15/24 07:48 10/15/24 09:08 10/15/24 07:48
I&O
10/14/24 10/15/24 10/16/24
06:59 06:59 06:59
Intake Total 990 / 990 2820 / 2820
Output Total 600 / 600 2425 / 2425
Balance 390 / 390 395 / 395
--- NOTE | 2024-10-15 12:56 | CM ---
Met with pt/ at bedside
Requesting hospital bed - called [facility] -[phone] - with call back number - awaiting return call
Pt/family requesting snf/rehab - given PAC list - requesting referral to [facility]
Will send referral in [facility]
Plan - SNF vs HH when medically ready
--- NOTE | 2024-10-15 14:51 | PTCARENOTE ---
2 Buprenorphine transdermal patches removed from [facility] and returned to pt's . new patch placed per NOV this am to left [place].
next change not due until 10/22/24. expected discharge in next few days.
nursing report given to Cristy hitchcock RN. pt and made aware of pt moving to [facility] rm [id number]. all personal belongings sent with pt.
[2024-10-15 15:33] VITALS: BP 115/78
--- NOTE | 2024-10-15 15:41 | PTCARENOTE ---
Pt. received via wheelchair and able to ambulate to bed with standby assistance and rolling walker. Assessment complete and VSS. Pt. oriented to unit and states no further needs at this time.
[2024-10-15] MEDS: LOVENOX 40 MG SC (17:40)
[2024-10-15] MEDS: MACROBID 100 MG PO (17:41)
[2024-10-15] MEDS: SINGULAIR 10 MG PO (17:41)
[2024-10-15] MEDS: NEURONTIN 100 MG PO (21:17)
[2024-10-15 23:04] VITALS: BP 129/71
[2024-10-16 06:50] LABS: % Basophils 0.9 % (0-2); % Eosinophils 3.4 % (0-6); % Immature Granulocytes 4.4 % (0-0.5); % Lymphocytes 7.9 % (20.5-51.1); % Monocytes 8.6 % (1.7-9.3); % Neutrophils 74.8 % (42.2-75.2); Absolute Basophils 0.1 10^3/uL (0-0.2); Absolute Eosinophils 0.4 10^3/uL (0-0.7); Absolute Immature Granulocytes 0.6 10^3/uL (0-0.05); Absolute Monocytes 1.1 10^3/uL (0.1-0.6); Absolute Neutrophils 9.5 10^3/uL (1.4-6.5); Hematocrit 34.6 % (39.0-52.0); Hemoglobin 11.4 g/dL (13.0-18.0); Mean Corp Hgb Conc. 32.9 g/dL (33.0-37.0); Mean Corpuscular Hgb 28.7 pg (27.0-31.0); Mean Corpuscular Volume 87.2 fL (80.0-94.0); Mean Platelet Volume 9.5 fL (7.4-10.4); Nucleated Red Blood Cells % 0.3 % (-); Platelet Count 250 10^3/uL (130-400); Red Blood Cell Count 3.97 10^6/uL (4.70-6.10); Red Cell Dist. Width 17.3 % (11.5-14.5); White Blood Cell Count 12.7 10^3/uL (4.8-10.8)
[2024-10-16 07:21] LABS: ALT (SGPT) 88 U/L (0-50); AST (SGOT) 75 U/L (17-59); Albumin 3.7 g/dl (3.5-5.0); Alkaline Phosphatase 311 U/L (38-126); Blood Urea Nitrogen 25 mg/dl (9-20); Carbon Dioxide 24 mmol/L (22-30); Chloride 98 mmol/L (98-107); Estimated Creatinine Clearance 101 ml/min; Glucose 85 mg/dl (70-99); Potassium 4.6 mmol/L (3.5-5.1); Sodium 132 mmol/L (135-145); Total Bilirubin 0.5 mg/dl (0.2-1.3); Total Protein 5.9 g/dl (6.3-8.2); eGFR > 60.00
[2024-10-16 07:40] VITALS: BP 132/80
[2024-10-16] MEDS: ADVAIR HFA 230/21 MCG INHALER 2 PUFF INH (08:22)
[2024-10-16] MEDS: NEURONTIN 200 MG PO ×2 (08:27→17:03)
[2024-10-16] MEDS: MACROBID 100 MG PO (08:27)
[2024-10-16] MEDS: TOPROL XL 75 MG PO (08:27)
[2024-10-16] MEDS: COLACE 100 MG PO (08:28)
[2024-10-16 09:30] VITALS: BP 135/86; PULSE 75; O2SAT 96
--- NOTE | 2024-10-16 10:47 | W.PN.HOSP.TC ---
Addendum entered and electronically signed by Jesus Shipman MD 10/16/24 11:16:
Time of discharge 38 minutes
Original Note:
Today's Communication/Plan
-
Monitor vital signs see plan
Continue with antibiotics
monitor LFT's
needs SNF
pt/ot
Assessment / Plan
Assessment / Plan
General: No Apparent Distress, Comfortable and Appears Chronically Ill
HEENT: NormoCephalic and Anicteric; No Moist mucous membranes
Respiratory: Clear
Cardiac: S1/S2 and Regular Rhythm
GI: Soft, Non Tender and Non Distended
Musculoskeletal: No Edema
Neuro: AO x 3
Psych: Calm
Generalized weakness -with failure to thrive. Suspect progression of underlying malignancy as the etiology. Volume depletion appears to be contributing given anorexia and poor oral intake. Also suspect secondary to urinary tract infection.
Urine culture growing Enterococcus, continue with antibiotics. Follow-up final sensitivities
Chest x-ray notes atelectasis.
PT/OT.
Leukocytosis, no fever. Continue to monitor
UTI, urine culture grew Enterococcus. Switched to Macrobid to complete course
Hyponatremia -monitor
Elevated transaminases/alkaline phosphatase -bilirubin normal. Check GGT. Recent CT scan dated 10/03/2024 showed intrahepatic biliary duct dilation within the posterior right hepatic lobe. No discrete obstructing lesion visualized. 1.4 cm
hypodensity within the posterior hepatic dome. Bile ducts and gallbladder and pancreas were normal. monitor lft's. Patient will need repeat labs outpatient. Currently without any abdominal pain. Could also be secondary to metastatic sarcoma
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 Overall prognosis appears poor. Encouraged patient to address goals of care and prognosis with his oncologist.
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
Essential hypertension with hypertensive urgency -resumed metoprolol. Suspect uncontrolled pressure related to pain.
Chronic normocytic anemia -suspect related to malignancy. Hemoglobin at baseline.
GERD
Nephrolithiasis
Diverticulosis
Full code
Patient started seeing palliative care from past couple weeks. Patient will be seeing his oncologist soon for further management
PT/OT now recommending SNF. chronic disease manager aware
Anticipated Discharge: Today
Subjective/Interval History
-
Date of Service: October 16, 2024
Denies pain
Objective Data
-
Labs:
Laboratory Results
10/16/24
06:04
WBC 12.7 H
Hgb 11.4 L
Hct 34.6 L
Plt Count 250
Sodium 132 L
Potassium 4.6
Chloride 98
Carbon Dioxide 24
BUN 25 H
Creatinine 0.6 L
Glucose 85
Calcium 9.0
Total Bilirubin 0.5
AST 75 H
ALT 88 H
Alkaline Phosphatase 311 H
Vital Signs:
Vital Signs
Temp Pulse Resp BP Pulse Ox
97.7 F 75 16 132/80 96
10/16/24 07:40 10/16/24 07:40 10/16/24 07:40 10/16/24 07:40 10/16/24 07:40
I&O
10/15/24 10/16/24 10/17/24
06:59 06:59 06:59
Intake Total 2820 / 2820 720 / 720
Output Total 2425 / 2425 1500 / 1500
Balance 395 / 395 -780 / -780
--- NOTE | 2024-10-16 11:13 | CM ---
Addendum entered by Shaina Galarza 10/16/24 15:14:
Antoinette called from [facility] - Please fax discharge info to [phone]
Original Note:
PT rec SNF
Met with patient and . Agreeable to SNF
Spoke with Marilyn at [facility], bed available today
IMM explained & signed. In chart
tt hospitalist
Discussed cost with for wheelchair van - agreeable
PLAN: [facility]
4th floor Report #: [phone]
Fax #: [phone]
transportation forms on chart-wheelchair van (facility would like after 2pm)
--- NOTE | 2024-10-16 11:16 | W.DCSUMMARY ---
Discharge Summary
Discharge Data
Date of Admission: 10/12/24
Date of Discharge: 10/16/24
-
Pending Results: No
Hospital Course
74-year-old male with past medical history of CLL, metastatic pleomorphic sarcoma, anemia, GERD, kidney stones, diverticulosis came to the hospital with generalized weakness with failure to thrive. Patient also had urinary tract infection on this
hospitalization and initially was started on IV antibiotic which were later transitioned to p.o. antibiotics prior to discharge. For his malignancy he was instructed to follow-up closely with his oncologist outpatient for goals of care and
prognosis. He was also evaluated by physical therapy who recommended SNF. Once his symptoms continue to improve, he was then discharged to rehab with instructions to follow-up with all his physicians outpatient.
Discharge Plan
-
Patient Disposition: Intermediate/SNF
Discharge Diagnosis/Procedures: Ambulatory dysfunction
Dehydration
Urinary tract infection
Hyponatremia
Elevated LFTs
Metastatic pleomorphic sarcoma
Diet: As tolerated
Activity: As tolerated
Driving Restrictions: As prior to admission
Bathing Restrictions: None
Blood Work: CBC and CMP with primary care provider or at rehab
Activity Restrictions/Additional Instructions:
Continue Macrobid through 06/19/2025
Referrals:
Roxi Olivarez PA [Family Provider] - in less than 1 week
Prescriptions:
New
polyethylene glycol 3350 17 gram Powder In Packet
17 g PO DAILY Qty: 0 0RF
docusate sodium 100 mg Capsule
100 mg PO BID Qty: 0 0RF
gabapentin 100 mg Capsule
100 mg PO HS Qty: 0 0RF
gabapentin 100 mg Capsule
200 mg PO TID Qty: 0 0RF
nitrofurantoin monohyd/m-cryst 100 mg Capsule
100 mg PO BID Qty: 0 0RF
Continued
niacinamide [Niacin (niacinamide)] 500 MG tablet
500 mg PO BID
montelukast 10 MG tablet
10 mg PO HS
zgkglhqdkxv-zjkqrqdvx-hlk C-Mn 1 TAB tablet
1 tab PO DAILY
metoprolol tartrate 25 MG tablet
75 mg PO BID
fluticasone propion-salmeterol 1 EACH aerosol powdr breath activated
1 ea IH BID
Multivitamin
1 tab PO DAILY
acetaminophen 500 mg Tablet
500 mg PO Q6H PRN (Reason: pain)
buprenorphine 5 mcg/hour Patch Weekly
1 patch TRANSDERMAL Q7D Qty: 1 0RF
Discharge Orders:
Discharge Patient (As Directed); Ordered 10/16/24
Ordered By: Jesus Shipman
Discharge Date and Time
Discharge Date/Time: 10/16/24 17:50
Print Language: GAMBIAN
[2024-10-16 15:00] VITALS: BP 125/70
[2024-10-16 16:00] VITALS: BP 113/72
== END 2024-10-16 17:50 | DRG 641 ==
LOC: 3 WEST ACU 18:02
PROVIDERS: ADMITTING PHYSICIAN Hospitalist; ATTENDING PHYSICIAN Internal Medicine; EMERGENCY PHYSICIAN Student in an Organized Health Care Education/Training Program; FAMILY PHYSICIAN Physician Assistant Medical
DX: E87.1 Hypo-osmolality and hyponatremia (principal); N39.0 Urinary tract infection, site not specified; D84.9 Immunodeficiency, unspecified; I47.10 Supraventricular tachycardia, unspecified; C79.51 Secondary malignant neoplasm of bone; C49.9 Malignant neoplasm of connective and soft tissue, unspecified; C91.11 Chronic lymphocytic leukemia of B-cell type in remission; D63.0 Anemia in neoplastic disease; E86.0 Dehydration; G47.33 Obstructive sleep apnea (adult) (pediatric); I10 Essential (primary) hypertension; I34.0 Nonrheumatic mitral (valve) insufficiency; K21.9 Gastro-esophageal reflux disease without esophagitis; R62.7 Adult failure to thrive; I16.0 Hypertensive urgency; B95.2 Enterococcus as the cause of diseases classified elsewhere; Z79.899 Other long term (current) drug therapy; Z11.52 Encounter for screening for COVID-19; Z79.891 Long term (current) use of opiate analgesic
CPT/HCPCS: 71046; 80053; 81003; 81015; 82533; 82977; 83935; 84300; 84443; 85025; 87077; 87086; 87186; 87502; 87811; 93005; 94640; 96361; 96374; 97162; 97166; 97530; 99285

== ENCOUNTER → 2024-10-20 11:45 | Outpatient (REF) | payer OTHER, MEDICARE, SELFPAY ==
[2024-10-20 12:24] LABS: % Basophils 0.7 % (0-2); % Eosinophils 4.3 % (0-6); % Immature Granulocytes 0.8 % (0-0.5); % Lymphocytes 7.6 % (20.5-51.1); % Monocytes 9.6 % (1.7-9.3); Absolute Basophils 0.1 10^3/uL (0-0.2); Absolute Eosinophils 0.4 10^3/uL (0-0.7); Absolute Immature Granulocytes 0.1 10^3/uL (0-0.05); Absolute Lymphocytes 0.8 10^3/uL (1.2-3.4); Hematocrit 34.6 % (39.0-52.0); Hemoglobin 11.3 g/dL (13.0-18.0); Mean Corp Hgb Conc. 32.7 g/dL (33.0-37.0); Mean Corpuscular Hgb 28.9 pg (27.0-31.0); Mean Corpuscular Volume 88.5 fL (80.0-94.0); Mean Platelet Volume 9.5 fL (7.4-10.4); Nucleated Red Blood Cells % 0 % (-); Platelet Count 242 10^3/uL (130-400); Red Blood Cell Count 3.91 10^6/uL (4.70-6.10); Red Cell Dist. Width 17.3 % (11.5-14.5); White Blood Cell Count 10.4 10^3/uL (4.8-10.8)
[2024-10-20 12:46] LABS: Blood Urea Nitrogen 18 mg/dl (9-20); Calcium 8.5 mg/dl (8.4-10.2); Carbon Dioxide 22 mmol/L (22-30); Chloride 100 mmol/L (98-107); Glucose 89 mg/dl (70-99); Potassium 4.4 mmol/L (3.5-5.1); Sodium 132 mmol/L (135-145); eGFR > 60.00
== END ==
LOC: OLABP 11:45
PROVIDERS: ATTENDING PHYSICIAN Family Medicine
DX: C49.9 Malignant neoplasm of connective and soft tissue, unspecified (principal); N39.0 Urinary tract infection, site not specified; E87.1 Hypo-osmolality and hyponatremia; E86.0 Dehydration; K21.9 Gastro-esophageal reflux disease without esophagitis; C91.10 Chronic lymphocytic leukemia of B-cell type not having achieved remission; R74.01 Elevation of levels of liver transaminase levels
CPT/HCPCS: 36415; 80048; 85025

== ENCOUNTER → 2024-12-05 15:46 | Outpatient (REF) | payer MEDICARE, OTHER, SELFPAY ==
[2024-12-05 15:11] LABS: % Basophils 0.6 % (0-2); % Eosinophils 4.5 % (0-6); % Immature Granulocytes 0.4 % (0-0.5); % Lymphocytes 12.3 % (20.5-51.1); % Monocytes 12.8 % (1.7-9.3); % Neutrophils 69.4 % (42.2-75.2); Absolute Basophils 0.1 10^3/uL (0-0.2); Absolute Eosinophils 0.4 10^3/uL (0-0.7); Absolute Neutrophils 5.4 10^3/uL (1.4-6.5); Hematocrit 37.2 % (39.0-52.0); Hemoglobin 11.9 g/dL (13.0-18.0); Mean Corpuscular Hgb 28.5 pg (27.0-31.0); Mean Corpuscular Volume 89.2 fL (80.0-94.0); Mean Platelet Volume 9.1 fL (7.4-10.4); Platelet Count 205 10^3/uL (130-400); Red Blood Cell Count 4.17 10^6/uL (4.70-6.10); Red Cell Dist. Width 17.9 % (11.5-14.5); White Blood Cell Count 7.8 10^3/uL (4.8-10.8)
[2024-12-05 16:05] LABS: ALT (SGPT) 73 U/L (0-50); AST (SGOT) 76 U/L (17-59); Albumin 4.6 g/dl (3.5-5.0); Alkaline Phosphatase 295 U/L (38-126); Blood Urea Nitrogen 18 mg/dl (9-20); Calcium 9.2 mg/dl (8.4-10.2); Carbon Dioxide 23 mmol/L (22-30); Chloride 102 mmol/L (98-107); Glucose 92 mg/dl (70-99); Potassium 4.9 mmol/L (3.5-5.1); Sodium 137 mmol/L (135-145); Total Bilirubin 0.6 mg/dl (0.2-1.3); Total Protein 6.5 g/dl (6.3-8.2); eGFR > 60.00
[2024-12-05 16:35] LABS: TSH Reflex To Free T4 3.76 uIU/ml (0.47-4.68)
== END ==
LOC: OIDL 15:46
PROVIDERS: ATTENDING PHYSICIAN Internal Medicine Hematology & Oncology
DX: C91.10 Chronic lymphocytic leukemia of B-cell type not having achieved remission (principal); R53.82 Chronic fatigue, unspecified
CPT/HCPCS: 80053; 84443; 85025

== ENCOUNTER 2024-12-22 22:35 | Emergency (ER) | payer MEDICARE, OTHER, SELFPAY ==
[2024-12-22 22:37] VITALS: BP 143/80
[2024-12-22 22:56] LABS: % Basophils 0.5 % (0-2); % Eosinophils 1.2 % (0-6); % Immature Granulocytes 0.5 % (0-0.5); % Lymphocytes 4.9 % (20.5-51.1); % Monocytes 10.6 % (1.7-9.3); % Neutrophils 82.3 % (42.2-75.2); Absolute Basophils 0.1 10^3/uL (0-0.2); Absolute Eosinophils 0.2 10^3/uL (0-0.7); Absolute Immature Granulocytes 0.1 10^3/uL (0-0.05); Absolute Lymphocytes 0.7 10^3/uL (1.2-3.4); Absolute Monocytes 1.6 10^3/uL (0.1-0.6); Absolute Neutrophils 12.2 10^3/uL (1.4-6.5); Hemoglobin 12.3 g/dL (13.0-18.0); Mean Corp Hgb Conc. 33.2 g/dL (33.0-37.0); Mean Corpuscular Hgb 29.3 pg (27.0-31.0); Mean Corpuscular Volume 88.1 fL (80.0-94.0); Mean Platelet Volume 8.9 fL (7.4-10.4); Nucleated Red Blood Cells % 0 % (-); Platelet Count 198 10^3/uL (130-400); Red Cell Dist. Width 17.5 % (11.5-14.5); White Blood Cell Count 14.8 10^3/uL (4.8-10.8)
[2024-12-22 23:07] LABS: Lactic Acid 1.7 mmol/L (0.7-2.0)
[2024-12-22 23:16] LABS: ALT (SGPT) 61 U/L (0-50); AST (SGOT) 60 U/L (17-59); Albumin 4.1 g/dl (3.5-5.0); Alkaline Phosphatase 290 U/L (38-126); Blood Urea Nitrogen 19 mg/dl (9-20); COVID-19 Antigen Negative (Negative); Carbon Dioxide 21 mmol/L (22-30); Chloride 102 mmol/L (98-107); Glucose 116 mg/dl (70-99); Potassium 4.4 mmol/L (3.5-5.1); Sodium 133 mmol/L (135-145); Total Bilirubin 0.9 mg/dl (0.2-1.3); Total Protein 6.5 g/dl (6.3-8.2); eGFR > 60.00
[2024-12-23 00:14] VITALS: BP 106/69
[2024-12-23 01:00] VITALS: BP 115/66
--- NOTE | 2024-12-23 01:00 | ED.GENMED ---
History of Present Illness
<Bety Sanabria PA-C - Last Filed: 12/23/24 14:56>
General
Chief Complaint: Fever
Source: patient
Exam Limitations: none
Time Seen by Provider: 12/23/24 00:57
Nursing documentation reviewed up to this point in time: agreed with
History of Present Illness
History of Present Illness:
74-year-old male with a past medical history of pleomorphic sarcoma in the bone on immunotherapy, asthma, JIMMIE, GERD, presents emergency department today with concerns of fevers and chills. Patient reports that this started around 3 days ago.
Patient reports that he started to get shakes and took his temperature and noticed that it was elevated. He took Tylenol and this resolved. He took Tylenol 45 minutes prior to arrival. He states that he not have any sick contacts, he denies any
cough or flulike symptoms, does note occasional shortness of breath. He denies any rashes. He denies any burning with urination. Denies any pelvic pain. Of note, he did have a transient episode of abdominal pain lasting around 10 minutes
yesterday with associated diarrhea. He has not had any other further episodes of diarrhea. He does not have any vomiting.
Past History
<Bety Sanabria PA-C - Last Filed: 12/23/24 14:56>
Past History
ED Past Medical History: Cancer
ED Past Surgical History: None
Social History
Tobacco: Non-smoker
Alcohol: None
Drug: None
Personal:
Living: with family
Review of Systems
<Bety Sanabria PA-C - Last Filed: 12/23/24 14:56>
Review of Systems
All Other Systems: ROS reviewed and negative except as documented in HPI and ROS
Phy Exam
<Bety Sanabria PA-C - Last Filed: 12/23/24 14:56>
Physical Exam
Physical Exam:
General: Patient is well appearing and in no acute distress; non-toxic
Skin: Warm and dry, no rashes or lesions
Head: Normocephalic, atraumatic
Eyes: Sclera non-icteric. EOMs intact.
Throat: Functional edema, uvula midline
Cardiac: Regular rate and rhythm, no murmurs
Peripheral Vascular: No extremity swelling or edema
Pulm: Normal respiratory effort, no wheezes, rales, rhonchi
Abdomen: No abdominal tenderness to palpation
Neuro: CN II-XII intact, no focal neurologic deficits.
Psychiatric: Appropriate mood and affect.
Course
<Bety Sanabria PA-C - Last Filed: 12/23/24 14:56>
Orders/Labs/Results
Orders:
Orders
12/22/24 22:48
COVID-19 Antigen Urgent
Source: Nasal Swab
Complete Blood Count/With Diff Urgent
Comprehensive Metabolic Panel Urgent
Lactic Acid Urgent
Blood Culture Urgent
ZION Source: Blood/Venous
Specimen Description:
Influenza A+B Rapid Molecular Urgent
ZION Source: Nasal Swab
Specimen Description:
12/23/24 01:02
Urinalysis Reflex To Culture Urgent
Date Specimen was Collected: 12/23/24
Time Specimen was Collected: 01:00
Urine Microscopic Reflex Cult Urgent
Urine Culture Urgent
ZION Source: U
Specimen Description:
Date Specimen was Collected: 12/23/24
Time Specimen was Collected: 01:00
12/23/24 01:13
0.9% Sodium Chloride 500 ml [Nss] 500 ml IV BOLUS
12/23/24 01:14
CR Chest - 2 Views Urgent
Comment:
Reason For Exam: shortness of breath
Abnormal Lab Results
12/22/24 12/23/24
22:48 01:02
WBC 14.8 H 10^3/uL
(4.8-10.8)
RBC 4.20 L 10^6/uL
(4.70-6.10)
Hgb 12.3 L g/dL
(13.0-18.0)
Hct 37.0 L %
(39.0-52.0)
RDW 17.5 H %
(11.5-14.5)
Abs Immat Gran (auto) 0.1 H 10^3/uL
(0-0.05)
Absolute Neuts (auto) 12.2 H 10^3/uL
(1.4-6.5)
Absolute Lymphs (auto) 0.7 L 10^3/uL
(1.2-3.4)
Absolute Monos (auto) 1.6 H 10^3/uL
(0.1-0.6)
Neutrophils % 82.3 H %
(42.2-75.2)
Lymphocytes % 4.9 L %
(20.5-51.1)
Monocytes % 10.6 H %
(1.7-9.3)
Sodium 133 L mmol/L
(135-145)
Carbon Dioxide 21 L mmol/L
(22-30)
Glucose 116 H mg/dl
(70-99)
AST 60 H U/L
(17-59)
ALT 61 H U/L
(0-50)
Alkaline Phosphatase 290 H U/L
(38-126)
Urine Ketones 1+ A
(Negative)
Ur Occult Blood Reflex 1+ A
(Negative)
Leukocyte Esterase Rfl 3+ A
(Negative)
Urine RBC 7-10 A /HPF
(0-2)
Urine WBC (Reflex) >100 A /HPF
(0-5)
Urine Bacteria (Reflex) Moderate A
(Negative)
Urine Albumin (Reflex) 2+ A
(Neg - Trace)
12/22/24 22:48
12/22/24 22:48
Vital Signs
Initial and Last Documented VS:
Initial Vital Signs
Temp Pulse Resp BP Pulse Ox
100.5 F H 88 16 143/80 94
12/22/24 22:37 12/22/24 22:37 12/22/24 22:37 12/22/24 22:37 12/22/24 22:37
Last Documented Vital Signs
Temp Pulse Resp BP Pulse Ox
98.5 F 71 26 115/66 91
12/23/24 00:15 12/23/24 01:15 12/23/24 01:15 12/23/24 01:00 12/23/24 01:15
<Elan Leslie PA-C - Last Filed: 12/23/24 17:25>
Orders/Labs/Results
Orders:
Orders
12/22/24 22:48
COVID-19 Antigen Urgent
Source: Nasal Swab
Complete Blood Count/With Diff Urgent
Comprehensive Metabolic Panel Urgent
Lactic Acid Urgent
Blood Culture Urgent
ZION Source: Blood/Venous
Specimen Description:
Influenza A+B Rapid Molecular Urgent
ZION Source: Nasal Swab
Specimen Description:
12/23/24 01:02
Urinalysis Reflex To Culture Urgent
Date Specimen was Collected: 12/23/24
Time Specimen was Collected: 01:00
Urine Microscopic Reflex Cult Urgent
Urine Culture Urgent
ZION Source: U
Specimen Description:
Date Specimen was Collected: 12/23/24
Time Specimen was Collected: 01:00
12/23/24 01:13
0.9% Sodium Chloride 500 ml [Nss] 500 ml IV BOLUS
12/23/24 01:14
CR Chest - 2 Views Urgent
Comment:
Reason For Exam: shortness of breath
Abnormal Lab Results
12/22/24 12/23/24
22:48 01:02
WBC 14.8 H 10^3/uL
(4.8-10.8)
RBC 4.20 L 10^6/uL
(4.70-6.10)
Hgb 12.3 L g/dL
(13.0-18.0)
Hct 37.0 L %
(39.0-52.0)
RDW 17.5 H %
(11.5-14.5)
Abs Immat Gran (auto) 0.1 H 10^3/uL
(0-0.05)
Absolute Neuts (auto) 12.2 H 10^3/uL
(1.4-6.5)
Absolute Lymphs (auto) 0.7 L 10^3/uL
(1.2-3.4)
Absolute Monos (auto) 1.6 H 10^3/uL
(0.1-0.6)
Neutrophils % 82.3 H %
(42.2-75.2)
Lymphocytes % 4.9 L %
(20.5-51.1)
Monocytes % 10.6 H %
(1.7-9.3)
Sodium 133 L mmol/L
(135-145)
Carbon Dioxide 21 L mmol/L
(22-30)
Glucose 116 H mg/dl
(70-99)
AST 60 H U/L
(17-59)
ALT 61 H U/L
(0-50)
Alkaline Phosphatase 290 H U/L
(38-126)
Urine Ketones 1+ A
(Negative)
Ur Occult Blood Reflex 1+ A
(Negative)
Leukocyte Esterase Rfl 3+ A
(Negative)
Urine RBC 7-10 A /HPF
(0-2)
Urine WBC (Reflex) >100 A /HPF
(0-5)
Urine Bacteria (Reflex) Moderate A
(Negative)
Urine Albumin (Reflex) 2+ A
(Neg - Trace)
12/22/24 22:48
12/22/24 22:48
Vital Signs
Initial and Last Documented VS:
Initial Vital Signs
Temp Pulse Resp BP Pulse Ox
100.5 F H 88 16 143/80 94
12/22/24 22:37 12/22/24 22:37 12/22/24 22:37 12/22/24 22:37 12/22/24 22:37
Last Documented Vital Signs
Temp Pulse Resp BP Pulse Ox
98.5 F 71 26 115/66 91
12/23/24 00:15 12/23/24 01:15 12/23/24 01:15 12/23/24 01:00 12/23/24 01:15
<Bety Sanabria PA-C - Last Filed: 12/23/24 14:56>
MDM/Problems Addressed
Differential Diagnosis Includes:
Viral syndrome, pneumonia, COVID-19, influenza, gastroenteritis ,colitis, neutropenic fever
MDM/Problems Addressed:
74-year-old male presents emergency department today with concerns of a fever. He does have a history of pleomorphic sarcoma of the spine. He is currently receiving immunotherapy. His oncologist is Dr. Chakraborty. He developed fever few days ago no
other associated symptoms. His chest x-ray does not show any evidence of pneumonia. He tested negative for COVID and flu. Urinalysis does show some white blood cells as well as leukocyte Estrace, however in light of the presence of squamous
epithelial cells and no urinary symptoms, could be contaminate and will hold off on antibiotics at this time and have patient defer to his primary care provider and his oncologist. Suspect fever related to gastroenteritis in the setting of
diarrhea. Pt has had no further episodes of diarrhea in the ER and he did receive IV fluids. I did offer CT scan of the abdomen considering that patient did have an episode of abdominal pain but patient is requesting to go home and is refusing CT
scans time. Think this is reasonable as patient has CAT scan of his abdomen tomorrow and is getting scans done with his oncologist. Reviewed case and plan with my attending Dr. Morris, patient stable for discharge
<Bety Sanabria PA-C - Last Filed: 12/23/24 14:56>
*Pulse Oximetry
Patient hypoxic: no
*Critical Care Note
Total Time (30-74mins, 75-104mins- exclusive of procedures): Not Applicable
Data Reviewed
Review of Other/Old Records Reveals: Records (Reviewed discharge summary from 10/16/2024 patient discharge after being admitted for IV antibiotics for UTI)
Source: patient and records
<PAUL Hernandez Last Filed: 12/23/24 14:56>
Patient Management
Escalation/DeEscalation of care consider admission/obs:
Case reviewed with my ED attending, patient stable for discharge
<PAUL Henriquez Last Filed: 12/23/24 17:25>
Update Note
Update Note:
December 23, 2024 5:20 PM: Received fax from micro lab that patient has Gram stain of aerobic and anaerobic blood culture bottles growing gram-positive cocci in pairs/chains. I contacted the patient and patient's . is aware of these findings
and given patient's chronic medical conditions and presenting symptoms I recommended they come back to the emergency department for further evaluation with anticipation that patient would be admitted.
ED Attending Note
<PAUL Hernandez Last Filed: 12/23/24 14:56>
-
Portions of this chart may have been created with voice recognition software.� Occasional wrong word or��sound alike� substitutions may have occurred due to the inherent limitations of voice recognition software.
Discharge Plan
Departure
Patient Disposition: Home (Routine Discharge)
Date of Disposition: 12/23/24
Time of Disposition: 02:01
Patient with high blood pressure during this ER visit?: Yes
Condition: Good
Discharge Problem:
Acute viral syndrome, Fever
Instructions: Viral Syndrome (DC), BLOOD PRESSURE
Prescriptions:
No Action
niacinamide [Niacin (niacinamide)] 500 MG tablet
500 mg PO BID
montelukast 10 MG tablet
10 mg PO HS
kdpfecgtpgf-jkzditzlz-pey C-Mn 1 TAB tablet
1 tab PO DAILY
metoprolol tartrate 25 MG tablet
75 mg PO BID
fluticasone propion-salmeterol 1 EACH aerosol powdr breath activated
1 ea IH BID
Multivitamin
1 tab PO DAILY
acetaminophen 500 mg Tablet
500 mg PO Q6H PRN (Reason: pain)
polyethylene glycol 3350 17 gram Powder In Packet
17 g PO DAILY Qty: 0 0RF
docusate sodium 100 mg Capsule
100 mg PO BID Qty: 0 0RF
gabapentin 100 mg Capsule
100 mg PO HS Qty: 0 0RF
gabapentin 100 mg Capsule
200 mg PO TID Qty: 0 0RF
nitrofurantoin monohyd/m-cryst 100 mg Capsule
100 mg PO BID Qty: 0 0RF
buprenorphine 5 mcg/hour Patch Weekly
1 patch TRANSDERMAL Q7D Qty: 1 0RF
Referrals:
Roxi Olivarez PA [Family Provider] -
Activity Restrictions/Additional Instructions:
You can continue to take Tylenol as needed for your fever. Your chest x-ray does not show any evidence of pneumonia. Your urinalysis does not show strong evidence of infection in light of your absence of symptoms. You tested negative for COVID
and influenza.
Please call your radiation oncologist and states that you are seen in the emergency department today for fever.
PLEASE RETURN EMERGENCY DEPARTMENT SHOULD YOU DEVELOP ABDOMINAL PAIN, DIARRHEA, INTRACTABLE NAUSEA OR VOMITING, PERSISTENT FEVERS, CHEST PAIN, SHORTNESS OF BREATH, BURNING WITH URINATION, BLOOD IN YOUR URINE, OR ANY OTHER SIGNS OR SYMPTOMS WORRISOME
TO YOU.
Interventions
Interventions:
*Risk Screen - Suicide Last Done: 12/23/24 00:13
*General Assessment Last Done: 12/23/24 00:13
*Neglect/Abuse Screening Last Done: 12/23/24 00:13
*ED- Fall Risk Assessment Last Done: 12/23/24 00:32
*ED COVID-19 Vaccine History Last Done: 12/23/24 00:13
*Nursing Disposition Last Done: 12/23/24 02:16
ED- Neurological Assessment Last Done: 12/23/24 00:16
ED-Skin Assessment Last Done: 12/23/24 00:16
Discharge Date and Time
Discharge Date/Time: 12/23/24 02:18
Print Language: [place] LEONEAN
[2024-12-23 01:03] VITALS: BMI 25.8
[2024-12-23 01:20] LABS: Urine Albumin 2+ (Neg - Trace); Urine Bilirubin Negative (Negative); Urine Character Slightly Cloudy (Clear); Urine Color Yellow; Urine Glucose Negative (Negative); Urine Ketone 1+ (Negative); Urine Leukocyte 3+ (Negative); Urine Nitrite Negative (Negative); Urine Occult Blood 1+ (Negative); Urine Urobilinogen Negative (Neg - 1+)
[2024-12-23] MEDS: NSS 500 IV (01:24)
[2024-12-23 02:09] LABS: Urine Bacteria Moderate (Negative); Urine White Cell >100 /HPF (0-5)
== END 2024-12-23 02:18 | disposition home or self-care (01) ==
LOC: EMR 22:35
PROVIDERS: Physician Assistant; EMERGENCY PHYSICIAN Emergency Medicine; FAMILY PHYSICIAN Physician Assistant Medical
DX: B34.9 Viral infection, unspecified (principal); G47.33 Obstructive sleep apnea (adult) (pediatric); J45.909 Unspecified asthma, uncomplicated; C41.9 Malignant neoplasm of bone and articular cartilage, unspecified; Z79.60 Long term (current) use of unspecified immunomodulators and immunosuppressants; Z11.52 Encounter for screening for COVID-19
CPT/HCPCS: 96360; 99284; 71046; 80053; 81003; 81015; 83605; 85025; 87040; 87077; 87086; 87205; 87502; 87811

== ENCOUNTER 2024-12-23 23:31 | Inpatient (IN) | payer MEDICARE, OTHER, SELFPAY ==
[2024-12-23 19:16] VITALS: BP 127/65
[2024-12-23 19:48] LABS: % Basophils 0.5 % (0-2); % Eosinophils 0.4 % (0-6); % Lymphocytes 4.7 % (20.5-51.1); % Monocytes 8.2 % (1.7-9.3); % Neutrophils 85.2 % (42.2-75.2); Absolute Basophils 0.1 10^3/uL (0-0.2); Absolute Eosinophils 0.1 10^3/uL (0-0.7); Absolute Immature Granulocytes 0.2 10^3/uL (0-0.05); Absolute Lymphocytes 0.9 10^3/uL (1.2-3.4); Absolute Monocytes 1.5 10^3/uL (0.1-0.6); Absolute Neutrophils 15.7 10^3/uL (1.4-6.5); Hemoglobin 11.6 g/dL (13.0-18.0); Mean Corp Hgb Conc. 33.1 g/dL (33.0-37.0); Mean Corpuscular Volume 87.5 fL (80.0-94.0); Mean Platelet Volume 8.9 fL (7.4-10.4); Nucleated Red Blood Cells % 0 % (-); Platelet Count 187 10^3/uL (130-400); Red Cell Dist. Width 17.6 % (11.5-14.5); White Blood Cell Count 18.4 10^3/uL (4.8-10.8)
[2024-12-23 20:04] LABS: ALT (SGPT) 62 U/L (0-50); AST (SGOT) 67 U/L (17-59); Albumin 4.4 g/dl (3.5-5.0); Alkaline Phosphatase 240 U/L (38-126); Blood Urea Nitrogen 25 mg/dl (9-20); Calcium 8.7 mg/dl (8.4-10.2); Carbon Dioxide 20 mmol/L (22-30); Chloride 101 mmol/L (98-107); Glucose 153 mg/dl (70-99); Potassium 4.4 mmol/L (3.5-5.1); Sodium 134 mmol/L (135-145); Total Bilirubin 1.1 mg/dl (0.2-1.3); Total Protein 6.5 g/dl (6.3-8.2); eGFR > 60.00
--- NOTE | 2024-12-23 21:24 | ED.GENMED ---
History of Present Illness
General
Chief Complaint: Fever
Source: patient and spouse
Exam Limitations: none
Time Seen by Provider: 12/23/24 21:18
Nursing documentation reviewed up to this point in time: agreed with
History of Present Illness
History of Present Illness:
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
He states he had a fever, he states at this time he has no pain and he feels comfortable.
Past History
Past History
ED Past Medical History: Cancer
ED Past Surgical History: None
Social History
Tobacco: Non-smoker
Alcohol: None
Drug: None
Personal:
Living: with family
Review of Systems
Review of Systems
Allergies reviewed?: Yes
Other source history: family
All Other Systems: ROS reviewed and negative except as documented in HPI and ROS
Constitutional: Reports fever; Denies chills
Respiratory: Denies trouble breathing
Cardiac: Denies chest pain
ABD/GI: Denies abdominal pain, nausea, vomiting or diarrhea
: Denies dysuria, frequency, flank pain, difficulty voiding or urgency
Musculoskeletal: Denies edema
Skin: Reports no symptoms
Neurological: Reports no symptoms
Phy Exam
Physical Exam
Physical Exam:
GENERAL: No acute distress. A&Ox3.
CONSTITUTIONAL: Afebrile.
EYES: clear, conjunctivae normal
ENMT: dry mucus membranes, Pharynx nl
RESPIRATORY: Regular respirations, nonlabored, lungs clear.
CARDIOVASCULAR: Regular rate and rhythm, no murmurs, no rubs.
GI: Soft, nontender, normal BS
MUSCULOSKELETAL: Moves with ease. Well perfused.
SKIN: Warm, dry, pale
PSYCH: Normal mood and affect. Well kept, interactive and appropriate
NEUROLOGIC: Awake, alert and oriented. No focal neurological deficits
Sepsis
Sepsis Screening
Sepsis Assessment: Sepsis
Sepsis Screen
Sepsis Screen: Sepsis
Date: 12/25/24
Time: 01:58
Course
Orders/Labs/Results
Orders:
Orders
12/23/24 19:30
Complete Blood Count/With Diff Urgent
Comprehensive Metabolic Panel Urgent
Influenza A+B Rapid Molecular Urgent
[facility] Source: Nasal Swab
Specimen Description:
12/23/24 22:22
Lactic Acid Urgent
12/23/24 22:28
Acetaminophen [Tylenol] 650 mg PO NOW STA
12/23/24 22:33
0.9% Sodium Chloride 1000 ml [Nss] 2,300 ml IV NOW STA
Cefepime HCl [Maxipime] 2,000 mg IV NOW STA
12/23/24 22:59
Blood Culture Q30M
[facility] Source: Blood/Venous
Specimen Description:
Blood Culture Q30M
ZION Source: Blood/Venous
Specimen Description:
12/23/24 23:18
Admit/Transfer Patient As Directed
Co-Sign Provider:
Level of Care: Inpatient admission
Assign to:: Telemetry
Physician / Group: Juliano
Diagnosis: Sepsis
Reason for Telemetry: Arrhythmia
Date to Stop Telemetry: 12/26/24
Time to Stop Telemetry: 11:00
Reason for Hospitalization: IV abx
Expected length of stay greater than two midnights?: Yes
ELOS- Estimated Length of Stay in days: 3
I certify the patient meets the requirements for IP care: Yes
PRN Pain Medication Management As Directed
May give lesser potent ordered pain med per pt: Yes
preference::
Protocol:: Medication orders for pain may be administered in a
manner that supports deferring to patient preference
when the pt is:
- Requesting an ordered lesser potent pain medication.
Least to most potent pain medications are defined
as: acetaminophen < NSAID < tramadol < opioids
(morphine, oxycodone, hydromorphone).
- Requesting a lesser dose of the same medication IF
ORDERED.
- Requesting a less intrusive route of administration
if both routes are prescribed by the provider (PO <
IV).
12/23/24 23:22
Code Status As Directed
Resuscitation Status: Full Code
12/24/24 00:41
Acetaminophen [Tylenol] 650 mg PO Q4HPRN PRN
Ondansetron Injectable [Zofran] 4 mg IV Q6HPRN PRN
12/24/24 00:41
Activity As Directed
Activity Level: Out of Bed-Early Mobility
With Assistance
Bladder Scan As Directed
Follow Bladder Retention/Intermittent Cath Algorithm?: Yes
PRN if no void in __ hours: 6
Frequency: Per Retention Algorithm
If Bladder Scan Result >: 400
then:: Straight cath
Buprenorphine Patch Confirmation BID@0700,1900
I&O [Intake/ Output] As Directed
Frequency: q12h
Straight Cath As Directed
Frequency: Per Retention Algorithm
Additional Instructions: straight cath as needed per acute urinary retention algorithm for 24 hrs
Additional Instructions: for bladder scan greater than 400 mL
Vital Signs As Directed
Frequency: Per unit guidelines
Weight As Directed
Frequency: Daily
Ot Eval And Treat Routine
Pt Eval And Treat Routine
Activity Level: Out of Bed-Early Mobility
DX Deep Vein Thrombosis Video Routine
12/24/24 Breakfast
Regular
At Your Request: Full Participation
Does patient need a safe tray?: No
CefTRIAXone [Rocephin] 1,000 mg IV Q24H
Gabapentin [Neurontin] 600 mg PO BID@0600,1500
12/24/24 06:27
Basic Metabolic Panel IN AM
Complete Blood Count/No Diff IN AM
12/24/24 08:00
Fluticasone/Salmeterol 230/21 [Advair Hfa 230/21 Mcg Inhaler] 2 puff INH R BID
Metoprolol Xl [Toprol Xl] 100 mg PO BID
Niacin Time Release [Niaspan Time Release] 500 mg PO BID
Non-Formulary Item See Dose Instructions TRANSDERM WE
Remove Pt Own Buprenorph Patch [Remove Pt Own Butrans Patch] See Dose Instructions REMOVE WE
12/24/24 18:00
Enoxaparin Sodium [Lovenox] 40 mg SC QPM
12/24/24 22:00
Gabapentin [Neurontin] 900 mg PO HS
Montelukast Sodium [Singulair] 10 mg PO HS
12/26/24 11:00
DC Protocol for Telemetry ONCE
Abnormal Lab Results
12/23/24
19:30
WBC 18.4 H 10^3/uL
(4.8-10.8)
RBC 4.00 L 10^6/uL
(4.70-6.10)
Hgb 11.6 L g/dL
(13.0-18.0)
Hct 35.0 L %
(39.0-52.0)
RDW 17.6 H %
(11.5-14.5)
Abs Immat Gran (auto) 0.2 H 10^3/uL
(0-0.05)
Absolute Neuts (auto) 15.7 H 10^3/uL
(1.4-6.5)
Absolute Lymphs (auto) 0.9 L 10^3/uL
(1.2-3.4)
Absolute Monos (auto) 1.5 H 10^3/uL
(0.1-0.6)
Immature Gran % 1.0 H %
(0-0.5)
Neutrophils % 85.2 H %
(42.2-75.2)
Lymphocytes % 4.7 L %
(20.5-51.1)
Sodium 134 L mmol/L
(135-145)
Carbon Dioxide 20 L mmol/L
(22-30)
BUN 25 H mg/dl
(9-20)
Glucose 153 H mg/dl
(70-99)
AST 67 H U/L
(17-59)
ALT 62 H U/L
(0-50)
Alkaline Phosphatase 240 H U/L
(38-126)
12/23/24 19:30
12/23/24 19:30
Vital Signs
Initial and Last Documented VS:
Initial Vital Signs
Temp Pulse Resp BP Pulse Ox
98.6 F 73 19 127/65 95
12/23/24 19:16 12/23/24 19:16 12/23/24 19:16 12/23/24 19:16 12/23/24 19:16
Last Documented Vital Signs
Temp Pulse Resp BP Pulse Ox
98.6 F 72 20 125/66 93
12/24/24 23:58 12/24/24 23:58 12/24/24 23:58 12/24/24 23:58 12/24/24 23:58
MDM/Problems Addressed
Differential Diagnosis Includes:
UTI, SIRS, Sepsis
MDM/Problems Addressed:
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
He states he had a fever, he states at this time he has no pain and he feels comfortable.
Hemodynamically stable
10:15p.m.
Temperature 100.2 on arrival
NAD, pleasant alert
CBC: WBC 18.4 with a left shift up from 14.8 yesterday
CMP with no clinically significant abnormality
Blood culture from yesterday repeat revealed positive for gram-positive cocci in pairs/chains
Reviewing U/A from yesterday: Urine is infected.
Plan: Treat for UTI sepsis
IV Cefepime (not a true allergy to Amoxicillin)
Hospitalist notified of admission.
*Critical Care Note
Total Time (30-74mins, 75-104mins- exclusive of procedures): Not Applicable
ED Attending Note
-
Portions of this chart may have been created with voice recognition software.� Occasional wrong word or��sound alike� substitutions may have occurred due to the inherent limitations of voice recognition software.
Discharge Plan
Departure
Patient Disposition: Admit
Date of Disposition: 12/23/24
Time of Disposition: 22:37
Admit to: Med/Surg
Presentation/result/management discussed w/ accepting MD/DO: Hospitalist
Condition: Fair
Covid-19: Negative COVID-19
Discharge Problem:
Acute UTI, Sepsis
Interventions
Interventions:
*Risk Screen - Suicide Last Done: 12/23/24 19:16
*Neglect/Abuse Screening Last Done: 12/23/24 19:16
*ED COVID-19 Vaccine History Last Done: 12/24/24 00:57
*Nursing Disposition Last Done: 12/24/24 00:35
ED- Neurological Assessment Last Done: 12/23/24 21:30
ED-Skin Assessment Last Done: 12/23/24 21:30
Discharge Date and Time
Discharge Date/Time: 12/24/24 00:35
[2024-12-23 21:31] VITALS: BP 171/90
[2024-12-23 22:00] VITALS: BP 151/81
[2024-12-23 22:39] LABS: Lactic Acid 1.5 mmol/L (0.7-2.0)
[2024-12-23] MEDS: TYLENOL 650 MG PO (22:47)
[2024-12-23] MEDS: NSS 2300 ML IV (22:49)
[2024-12-23] MEDS: MAXIPIME 2000 MG IV (22:50)
[2024-12-23 23:00] VITALS: BP 143/73
--- NOTE | 2024-12-23 23:20 | W.PN.UPDATE ---
Addendum entered and electronically signed by Miles Henao MD 12/23/24 23:26:
He did have diarrhea 2 days now resolved.
Original Note:
Update Note
Progress Note Update
This is an addendum to H&P written by Deonna Bradley on 12/23/2024. Patient seen and examined independently with PA.
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
positive blood culture.
Patient came last night for fevers and chills and transient abdominal pain. He had a single blood culture drawn. He tested negative for COVID and flu. Urinalysis suggestive of UTI but thought to be contaminant. He received IV fluids. He was
discharged home. Back again for positive blood culture and low-grade fever. No abdominal pain.
Labs show mild transaminitis.
Chest x-ray shows no acute process.
Blood culture from yesterday shows gram-positive cocci in pairs/chains.
Reviewing prior cultures shows Serratia in the urine, Enterococcus in October.
Patient with sepsis with leukocytosis, low-grade fever secondary to likely UTI. Bacteremia could be secondary to Enterococcus.
IV fluids. Repeat blood cultures pending. Vancomycin/ceftriaxone.
Transaminitis appears to be chronic since October thought to be possibly secondary to metastatic sarcoma and to be followed up outpatient.
--- NOTE | 2024-12-23 23:28 | HPS.HSE ---
Family Physician
-
Family Physician: Roxi Olivarez
Chief Complaint
-
Positive blood culture
History of Present Illness
Patient is a 74 y/o male past medical history of metastatic pleomorphic sarcoma, B-Cell CLL, hypertension, chronic pain and prior enterococcus urinary tract infection who presents with fever and positive blood cultures. Patient reports he had a
significant episode of diarrhea on Sunday night which was associated with crampy abdominal pain, nausea but no vomiting. Yesterday patient developed significant shakes / chills with associated fever 101F. Patient was seen here overnight from the
to and discharged home with diagnosis of viral syndrome. He was sent back to the ED as the single blood culture drawn revealed gram positive cocci in pairs/chains. Patient denies any further episodes of diarrhea. He denies cough or
shortness of breath. He denies dysuria, urinary frequency or urgency.
Medical History
Past Medical History
Past Medical History: Reports Other
Additional Past Medical History:
Metastatic pleomorphic sarcoma
CLL, B-cell
Prostate cancer
Essential hypertension
Asthma
GERD
Nephrolithiasis
Moderate/severe mitral regurgitation
Aortic sclerosis
SVT
JIMMIE
Skin cancer
Diverticulosis
Left ureteral stricture
Past Surgical History: Reports Other
Additional Past Surgical History:
TURP
Umbilical hernia repair
Parotid surgery for basal cell cancer
Bilateral cataracts
Social History
Tobacco: Non-smoker
Alcohol: None
Drug: None
Personal:
Living: With Family
Family History
Family History: Not pertinent
Allergies / Home Medications
Allergies reflects when Allergies were last updated in [facility].
Home Medications with original date entered in [facility]
Allergy/Medication List:
Allergies
Allergy/AdvReac Type Severity Reaction Status Date / Time
amoxicillin Allergy chills,diar Verified 04/22/25 19:16
beatris,vomiti
ng
seasonal Allergy congestion Uncoded 12/23/24 19:16
Home Medications
fluticasone 232 mcg-salmeterol 14 mcg/actuation breath activated powdr 1 ea IH BID Lung/Breathing Issues 11/10/21
sbhbkhquuzq-qqfcwrubo-bwh C-Mn 750 mg-600 mg-55 mg-5 mg tablet 1 tab PO DAILY 11/10/21
montelukast 10 mg tablet 10 mg PO HS Allergies 11/10/21
acetaminophen 500 mg tablet 1,000 mg PO QID 12/23/24
buprenorphine 5 mcg/hour weekly transdermal patch 1 patch transdermal WE 12/23/24
gabapentin 300 mg capsule 600 mg PO BID@0600,1500 12/23/24
gabapentin 300 mg capsule 900 mg PO HS 12/23/24
metoprolol succinate 100 mg tablet,extended release 24 hr 100 mg PO BID 12/23/24
multivitamin 1 tab PO DAILY 12/23/24
niacin 500 mg tablet 500 mg PO BID 12/23/24
polyethylene glycol 3350 17 gram oral powder packet 17 g PO DAILYPRN PRN constipation 12/23/24
Review of Systems
-
A 12 point ROS was completed and negative except as noted: Yes
Constitutional: Reports Fever and Chills
Respiratory: Denies Cough or Trouble Breathing
Cardiac: Denies Chest Pain or Palpitations
Abdomen/GI: Reports See HPI
: Reports See HPI
Physical Exam
Vital Signs
Vital Signs
Temp Pulse Resp BP Pulse Ox
100.2 F 82 24 143/73 95
12/23/24 21:36 12/23/24 23:00 12/23/24 23:00 12/23/24 23:00 12/23/24 23:00
Physical Exam
General: Comfortable, Conversant and Appears Chronically Ill
HEENT: Anicteric, Moist mucous membranes and Other (Poor dentition)
Respiratory: Clear and Non Labored Respirations
Cardiac: S1/S2 and Regular Rhythm
GI: Soft and Non Tender
Rectal: Deferred by Provider
Musculoskeletal: No Clubbing and No Cyanosis
Skin: Warm and Dry
Neuro: Awake, Alert and Nonfocal/grossly intact
Laboratory Results
-
12/23/24 19:30
12/23/24 19:
Laboratory Results
Lactic Acid 1.5 mmol/L (0.7-2.0) 12/23/24:22
Total Bilirubin 1.1 mg/dl (0.2-1.3) 12/23/24:30
AST 67 U/L (17-59) H 12/23/24:30
ALT 62 U/L (0-50) H 12/23/24:30
Alkaline Phosphatase 240 U/L (38-126) H 12/23/24 19:30
Data Reviewed
-
Lab Data: Labs Reviewed by me
Old Records: Reviewed
Impression/Plan
-
Sepsis secondary to Urinary Tract Infection
-Reviewed prior culture data with Enterococcus from Oct 2023
-Continue vancomycin and ceftriaxone pending urine culture
Positive Blood Culture
-Single blood culture drawn on 12/22 with gram positive cocci in pairs/chains
-Suspect Enterococcus bacteremia given prior enterococcus UTI
-Recheck blood cultures x 2
-Continue empiric vancomycin
Chronic Pain with Opioid Dependence
-Continue Butrans Patch
-Continue gabapentin
Cough-Variant Asthma, no acute exacerbation
-Continue fluticasone/salmeterol
-Continue montelukast
Essential Hypertension
-Continue metoprolol with hold parameters
Metastatic Pleomorphic Sarcoma
-Patient is due to follow-up scans this weeks
Chronically Elevated Transaminases/Alkaline Phosphatase
-Stable
DVT proph: Lovenox
Code Status: Full Code
[2024-12-24] VITALS (11 sets, daily range): BP systolic 118–139; BP diastolic 62–85; PULSE 83; O2SAT 95; BMI 24.7
[2024-12-24] MEDS: FLUSH (NSS) 2 FLUSH IV ×2 (01:21→06:08)
[2024-12-24] MEDS: VANCOCIN 540 MG IV (01:21)
--- NOTE | 2024-12-24 02:11 | PTCARENOTE ---
Patient received from ED via stretcher and was pulled to bed by staff. He was oriented to room and surroundings. See nursing assessment for physical findings. IV Abx per order. Call crowder in reach
[2024-12-24] MEDS: NEURONTIN 600 MG PO ×2 (06:07→15:18)
[2024-12-24] MEDS: ROCEPHIN 1000 MG IV (06:08)
[2024-12-24] MEDS: STERILE WATER FOR INJECTION 10 ML IV (06:08)
[2024-12-24 07:12] LABS: Hematocrit 31.6 % (39.0-52.0); Hemoglobin 10.6 g/dL (13.0-18.0); Mean Corp Hgb Conc. 33.5 g/dL (33.0-37.0); Mean Corpuscular Hgb 29.3 pg (27.0-31.0); Mean Corpuscular Volume 87.3 fL (80.0-94.0); Mean Platelet Volume 9.1 fL (7.4-10.4); Platelet Count 174 10^3/uL (130-400); Red Blood Cell Count 3.62 10^6/uL (4.70-6.10); Red Cell Dist. Width 17.5 % (11.5-14.5); White Blood Cell Count 16.2 10^3/uL (4.8-10.8)
[2024-12-24] MEDS: ADVAIR HFA 230/21 MCG INHALER 2 PUFF INH ×2 (08:00→20:24)
[2024-12-24] MEDS: NON-FORMULARY ITEM 1 UNIT TRANSDERM (08:18)
[2024-12-24 08:21] LABS: Blood Urea Nitrogen 16 mg/dl (9-20); Calcium 8.2 mg/dl (8.4-10.2); Carbon Dioxide 17 mmol/L (22-30); Chloride 105 mmol/L (98-107); Estimated Creatinine Clearance 101 ml/min; Glucose 96 mg/dl (70-99); Potassium 3.7 mmol/L (3.5-5.1); Sodium 135 mmol/L (135-145); eGFR > 60.00
[2024-12-24] MEDS: NIASPAN TIME RELEASE 500 MG PO ×2 (08:21→20:24)
[2024-12-24] MEDS: TOPROL XL 100 MG PO ×2 (08:22→20:24)
[2024-12-24] MEDS: REMOVE PT OWN BUTRANS PATCH 1 PATCH REMOVE (08:22)
--- NOTE | 2024-12-24 08:41 | PHA.VAN.IN ---
Assessment
- Assessment
Renal Function: Appears similar to baseline (0.6)
Concomitant Antimicrobials: Ceftriaxone
AUC Dosing Plan
- Dosing Variables
Dosing Weight (kg): 73.624
Dosing CrCl (ml/min): 101
Vd coefficient (L/kg): 0.7
- Empiric Dosing
Initial / Loading Dose: Vanco 2000mg loading administered 12/24/24 0121
Maintenance Regimen: Vanco 1250mg Q12H Starting 12/24/24 1800
Estimated AUC (mcg*h/mL): 586
Estimated Peak (mcg*h/mL): 37.1
Estimated Trough (mcg/ml): 14.7
Estimated Half Life (H): 7.85
- Monitoring
No levels ordered at this time: Consider in the next few days
Pharmacokinetics Vancomycin I
- -
Patient Age: 74
Patient Sex: Male
Vancomycin Day #: 1
Indication: Bacteremia
Requesting Provider: SHAMA
Pertinent Antimicrobial Allergies:
Amoxicillin - chills, diarrhea, vomiting
Height / Weight:
Height 5 ft 8 in
Actual Weight 73.624 kg
Pertinent Past Medical History: Pleomorphic cell sarcoma
- Vital Signs / Lab Results
Temp Pulse Resp BP Pulse Ox
98.1 F 77 18 132/71 94
12/24/24 08:05 12/24/24 08:07 12/24/24 08:07 12/24/24 08:05 12/24/24 08:07
Lab Results - Hematology
12/23/24 12/24/24
19:30 06:27
WBC 18.4 H 16.2 H
Lab Results - Chemistry
12/23/24 12/24/24
19:30 06:27
BUN 25 H 16
Creatinine 0.8 0.6 L
Estimated Creat Clear 101
Albumin 4.4
12/23/24
22:22
Lactic Acid 1.5
Microbiology Results
12/23/24 19:30 Influenza Types A & B ([facility]HEL) - Final
Nasal Swab Negative for Influenza A & B, NAAT
Negative results must be combined with clinical observations
and patient history.
Nucleic Acid Amplification test (NAAT)performed on the
[employer] platform.
--- NOTE | 2024-12-24 10:40 | W.PN.HOSP.TC ---
Today's Communication/Plan
-
see AP
Assessment / Plan
Assessment / Plan
HPI: 74 y/o male past medical history of metastatic pleomorphic sarcoma, B-Cell CLL, hypertension, chronic pain and prior enterococcus urinary tract infection who presented with fever and positive blood cultures.
Patient reported he had a significant episode of diarrhea about 3 days [employer], associated with crampy abdominal pain, nausea but no vomiting. The day [employer] patient developed significant shakes / chills with associated fever 101F. Patient was seen here
overnight from the to and discharged home with diagnosis of viral syndrome. He was sent back to the ED as the single blood culture drawn revealed gram positive cocci in pairs/chains. Patient denies any further episodes of diarrhea. He
denies cough or shortness of breath. He denies dysuria, urinary frequency or urgency.
A/P:
# Sepsis secondary to bacteremia, ?2/2 Urinary Tract Infection source
Single blood culture drawn on 12/22 with gram positive cocci in pairs/chains, follow S/S
Follow repeat blood cultures
Noted prior urine culture positive for Enterococcus from Oct 2023
urine culture this admission 100,000 CFU/ML Mixed mila present, Probable contamination
Continue vancomycin and ceftriaxone
ID CS
# Chronic Pain with Opioid Dependence
Continue Butrans Patch
Continue gabapentin
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
Continue fluticasone/salmeterol
Continue montelukast
# Essential Hypertension
Continue metoprolol with hold parameters
# Metastatic Pleomorphic Sarcoma
Patient is due to follow-up scans this weeks
# Chronically Elevated Transaminases/Alkaline Phosphatase
Stable
DVT proph: Lovenox SQ
Code Status: Full Code
Anticipated Discharge: > 48 hours
Subjective/Interval History
-
Date of Service: December 24, 2024
Objective Data
-
Labs:
Laboratory Results
04/23/25
06:27
WBC 16.2 H
Hgb 10.6 L
Hct 31.6 L
Plt Count 174
Sodium 135
Potassium 3.7
Chloride 105
Carbon Dioxide 17 L
BUN 16
Creatinine 0.6 L
Glucose 96
Calcium 8.2 L
Vital Signs:
Vital Signs
Temp Pulse Resp BP Pulse Ox
36.7 C 77 18 132/71 94
12/24/24 08:05 12/24/24 08:07 12/24/24 08:07 12/24/24 08:05 12/24/24 08:07
I&O
12/23/24 12/24/24 12/25/24
06:59 06:59 06:59
Intake Total 810 / 810
Output Total 1275 / 1275 750 / 750
Balance -465 / -465 -750 / -750
Review of Systems
-
All other systems: Reviewed and negative
Physical Exam
-
General: Well Developed, Well Nourished, No Apparent Distress, Comfortable and Conversant; Negative Respiratory Distress
HEENT: Normocephalic, Atraumatic, Nose Appears Normal and Ears Appear Normal; Negative Oxygen
Respiratory: Clear to Auscultation and Non Labored Respirations; Negative Accessory Resp Muscle Use
Cardiac: Regular Rhythm and S1/S2
GI: Soft, Nontender, Nondistended and Normal Bowel Sounds
Skin: Warm and Dry
Neuro: Awake, Alert, Oriented and AO x 3
Psych: Calm and Intact Judgement/Insight
Data Reviewed
-
Labs: Labs Reviewed by me
[2024-12-24] MEDS: COLACE 100 MG PO (12:07)
--- NOTE | 2024-12-24 12:32 | CON.ID ---
Consultation
-
Date/Time Consultation Requested: 12/24/24 10:56
Date/Time Consultation Performed: 12/24/24 12:33
Requesting Provider: Dr Goldman
Performing Provider: Dr Slaughter
Reason for Consultation: Positive blood culture
Chief Complaint / Past History
Chief Complaint
positive blood cultures
History of Present Illness
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
here 12/23 for fevers and chills of 3 days duration. Fevers improved with tylenol. He noted some transient abdominal pain and a single episode of diarrhea, no vomiting. No other focal symptoms and he was diagnosed with suspected gastroenteritis
and discharged, no antibiotics were prescribed. UA had pyuria >100 wbc/hpf and moderate bacteria, urine culture finalized as polymicrobial Then the single blood culture that was done 12/22 resulted positive with enterococcus. Patient was called and
advised to return to the ER, he was given cefepime then about 10 minutes later blood cultures x2 were obtained at the same time. He was not aware of a previous heart murmur though records indicate known aortic sclerosis and moderate/severe Had
a routine dental cleaning two weeks ago with xrays - no dental pain or swelling before or since. Denies having any hardwear. Has chronic back pain due to the sarcoma which he reports is unchanged and managed with buprenorphine patch.
We discussed his amoxicillin reaction and he reports it was 30 years ago. Unsure if hes had a penicillin since then. Confirms the recorded symptoms of chills, diarrhea, vomiting
Since arrival this visit no further documented mark anthony fevers though I do note that during last ER evaluation 12/22 he was febrile to 100.5, bp overall stable, wbc initially 18.4 now 16.2, hg b10.6, plt 174, L shift is noted cr 0.6, lactic acid 1.5, t
bili 1.1, ast 67, alt 62, alk phos 240, 12/23 UA had pyuria >100 wbc/hpf and moderate bacteria, urine culture finalized as polymicrobial, CXR: no infiltrates
Past History
Additional Past Medical History:
Metastatic pleomorphic sarcoma
CLL, B-cell
Prostate cancer
Essential hypertension
Asthma
GERD
Nephrolithiasis
Moderate/severe mitral regurgitation
Aortic sclerosis
SVT
JIMMIE
Skin cancer
Diverticulosis
Left ureteral stricture
Additional Past Surgical History:
TURP
Umbilical hernia repair
Parotid surgery for basal cell cancer
Bilateral cataracts
Allergy History:
amoxicillin Allergy (Verified 12/23/24 19:16)
chills,diarrhea,vomiting
seasonal Allergy (Uncoded 12/23/24 19:16)
congestion
Medications Reviewed: Yes
Social History
Tobacco: Non-Smoker
Alcohol: None
Drug: None
Personal:
Family History
Family History: Not Pertinent
Review of Systems
Review of Systems
General: Fever and Chills
All systems: All other systems were reviewed and were negative
Vital Signs
Temp Pulse Resp BP Pulse Ox
98.1 F 72 18 135/75 94
12/24/24 11:43 12/24/24 11:43 12/24/24 11:43 12/24/24 11:43 12/24/24 11:43
Physical Exam
Physical Exam
Constitutional: No Acute Distress
Cardiovascular: Regular Rate, S1/S2 and Murmur (loudest at the RUSB without radiation); Negative Rub
Pulmonary: Clear and Symmetric; Negative Wheezes, Rales or Rhonchi
Gastrointestinal: Soft, Non Tender, Non Distended and Normal Bowel Sounds
Extremities: Negative Splinter Hemorrhage or Janeway Lesions
Musculoskeletal: Negative Spinal Tenderness
Skin: Warm and Dry; Negative Rash or Jaundice
Lines: Other (buprenoephrine patch in place)
Lab / Diagnostic Study Results
12/24/24 06:27
12/24/24 06:27
Abs Immat Gran (auto) 0.2 10^3/uL (0-0.05) H 12/23/24 19:30
Absolute Neuts (auto) 15.7 10^3/uL (1.4-6.5) H 12/23/24 19:30
Absolute Lymphs (auto) 0.9 10^3/uL (1.2-3.4) L 12/23/24 19:30
Absolute Monos (auto) 1.5 10^3/uL (0.1-0.6) H 12/23/24 19:30
Absolute Basos (auto) 0.1 10^3/uL (0-0.2) 12/23/24 19:30
Immature Gran % 1.0 % (0-0.5) H 12/23/24 19:30
Neutrophils % 85.2 % (42.2-75.2) H 12/23/24 19:30
Lymphocytes % 4.7 % (20.5-51.1) L 12/23/24 19:30
Monocytes % 8.2 % (1.7-9.3) 12/23/24 19:30
Eosinophils % 0.4 % (0-6) 12/23/24 19:30
Basophils % 0.5 % (0-2) 12/23/24 19:30
Lactic Acid 1.5 mmol/L (0.7-2.0) 12/23/24 22:22
Microbiology Results
Micro:
12/23/24 22:59 Blood Culture - Pending
Blood/Venous
12/23/24 22:59 Blood Culture - Pending
Blood/Venous
12/23/24 19:30 Influenza Types A & B (ETHEL) - Final
Nasal Swab Negative for Influenza A & B, NAAT
Negative results must be combined with clinical observations
and patient history.
Nucleic Acid Amplification test (NAAT)performed on the
[employer] platform.
Assessment / Plan
Community Acquired Enterococcal Bacteremia
Fever
Possible Endocarditis
Recent history of Enterococcal UTI
metastatic pleomorphic sarcoma, B-Cell CLL no on current treatment
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
Possible Immunosuppression
report of ADR with amoxicillin
- blood cultures x2 were done on cefepime, however not an effective treatment for the bacteria in question - Enterococcus
- repeat blood cultures q48 hours until persistently clear
- 12/22 single set of blood cultures with enterococcus
- 10/12/24 amp sensitive E faecalis UTI treated with macrobid
- TTE
- EKG to check for new blocks
- UA 12/23 not consistent with glomerulonephritis, doesnt appear to be source of bacteremia with polymicrobial culture
- RF in the AM
- discussed with Dr Davila (oncology) patient hasn�t received IVIG since 2019 because quant IgG has generally been 400-600 range; he will continue to follow up with Dr Davila for hypogammaglobulinemia
- doesnt have a port
- doubt patient is truly allergic to amoxicillin, his description is of an adverse effect rather than an allergy - will trial ampicillin inpatient, reviewed with patient who is in agreement
- hold ceftriaxone for the moment, likely to restart at q12hr dosing
- continue vancomycin for now
- follow clinically
[2024-12-24] MEDS: AMPICILLIN 108 MG IV ×3 (15:15→23:10)
[2024-12-24] MEDS: LOPRESSOR 5 MG IV (15:31)
--- NOTE | 2024-12-24 15:33 | PTCARENOTE ---
Patient with HR of 130 on tele. BP 128/70. EKG done. S.tach noted. Dr. Goldman made aware. CHARISSE maxwell added. See MAR. Patient is asymptomatic.
--- NOTE | 2024-12-24 16:17 | CM ---
Met with patient and his to obtain information for assessment. Patient stated that he lives with his in a single home two story home with his . There are three steps to enter. Patient stated that his helps with his ADLs, personal
care, dressing and bathing. His does all of the cooking, assembly hand and laundry. He has a woman who comes in to clean x2 a month. He has a walker and a cane. Patient has been to [facility] in the past. [facility] with [facility]
and gets PT/OT and an FAMILY THERAPIST.
Patient has a prescription plan and uses, [facility] in [place] for all of his medications.
His PCP is, Roxi Olivarez.
Patient feels that he has become increasingly weak over the past few days and feels that he will have to consider SNF. His requested [facility], [facility] and they are thinking of alternate facilities.
Plan: Case management will continue to follow and assist with discharge planning. Patient will most likely need SNF.
[2024-12-24] MEDS: LOVENOX 40 MG SC (16:53)
[2024-12-24] MEDS: VANCOCIN 275 MG IV (16:59)
[2024-12-24] MEDS: TYLENOL 650 MG PO (20:23)
[2024-12-24] MEDS: NEURONTIN 900 MG PO (20:25)
[2024-12-24] MEDS: SINGULAIR 10 MG PO (20:25)
[2024-12-25] MEDS: AMPICILLIN 108 MG IV ×6 (03:29→23:09)
[2024-12-25 03:49] VITALS: BP 146/83
[2024-12-25] MEDS: VANCOCIN 275 MG IV (05:07)
[2024-12-25] MEDS: NEURONTIN 600 MG PO ×2 (05:08→16:07)
[2024-12-25 06:00] VITALS: BMI 25.1
--- NOTE | 2024-12-25 06:27 | DOWNTIME ---
There was a [employer] Client Poolroom Table Attendant Downtime on 12/25/2024 from 0200 to 12/26/2023 at 0318 . Downtime documentation of patient's care, including medication administrations, has been reconciled in the electronic record per guidelines. Refer to the
patient's paper chart under the miscellaneous tab to see printed paper medication records and downtime forms.
[2024-12-25 07:19] VITALS: BP 131/66
[2024-12-25] MEDS: NIASPAN TIME RELEASE 500 MG PO ×2 (08:13→20:37)
--- NOTE | 2024-12-25 08:13 | PHA.VAN.FU ---
Vancomycin Assessment / Plan
- Assessment
Renal Function: Stable (0.6)
WBC's are: Trending Down (16.2->14.4)
In the past 24 hrs, patient has been: Afebrile
Concomitant Antimicrobials: Ampicillin, Ceftriaxone(hold)
- Dosing Plan
Continue: Vanco 1250mg Q12H
- Monitoring Plan
No level(s) ordered at this time: Consider in the next few days
- Follow Up
Pharmacy will continue to follow.
Vancomycin Follow UP
- -
Patient Age: 74
Patient Sex: Male
Vancomycin Day #: 2
Indication: Bacteremia
Requesting Provider: SHAMA
Pertinent Antimicrobial Allergies:
Amoxicillin - chills, diarrhea, vomiting
Height / Weight:
Height 5 ft 8 in
Actual Weight 74.843 kg
Pertinent Past Medical History: Pleomorphic cell sarcoma
- Vital Signs / Lab Results
Temp Pulse Resp BP Pulse Ox
100 F 76 21 146/83 93
12/25/24 03:49 12/25/24 03:49 12/25/24 03:49 12/25/24 03:49 12/25/24 03:49
Lab Results - Hematology
12/23/24 12/24/24
19:30 06:27
WBC 18.4 H 16.2 H
Lab Results - Chemistry
12/23/24 12/24/24
19:30 06:27
BUN 25 H 16
Creatinine 0.8 0.6 L
Estimated Creat Clear 101
Albumin 4.4
12/23/24
22:22
Lactic Acid 1.5
Microbiology Results
12/23/24 22:59 Blood Culture - Preliminary
Blood/Venous No Growth in 24 hours- Final report to follow
12/23/24 22:59 Blood Culture - Preliminary
Blood/Venous No Growth in 24 hours- Final report to follow
12/23/24 19:30 Influenza Types A & B (ETHEL) - Final
Nasal Swab Negative for Influenza A & B, NAAT
Negative results must be combined with clinical observations
and patient history.
Nucleic Acid Amplification test (NAAT)performed on the
[employer] platform.
[2024-12-25] MEDS: TOPROL XL 100 MG PO ×2 (08:14→20:37)
[2024-12-25] MEDS: ADVAIR HFA 230/21 MCG INHALER 2 PUFF INH ×2 (08:15→19:40)
[2024-12-25 08:27] LABS: ALT (SGPT) 79 U/L (0-50); AST (SGOT) 86 U/L (17-59); Albumin 3.4 g/dl (3.5-5.0); Alkaline Phosphatase 260 U/L (38-126); Blood Urea Nitrogen 14 mg/dl (9-20); Calcium 8.1 mg/dl (8.4-10.2); Carbon Dioxide 20 mmol/L (22-30); Chloride 103 mmol/L (98-107); Direct Bilirubin 0.7 mg/dl (0.0-0.4); Estimated Creatinine Clearance 101 ml/min; Glucose 95 mg/dl (70-99); Potassium 3.5 mmol/L (3.5-5.1); Sodium 135 mmol/L (135-145); Total Bilirubin 1.2 mg/dl (0.2-1.3); Total Protein 5.5 g/dl (6.3-8.2); eGFR > 60.00
[2024-12-25 08:34] LABS: % Basophils 0.6 % (0-2); % Eosinophils 3.1 % (0-6); % Immature Granulocytes 0.9 % (0-0.5); % Lymphocytes 7.2 % (20.5-51.1); % Monocytes 12.2 % (1.7-9.3); Absolute Basophils 0.1 10^3/uL (0-0.2); Absolute Eosinophils 0.4 10^3/uL (0-0.7); Absolute Immature Granulocytes 0.1 10^3/uL (0-0.05); Absolute Monocytes 1.8 10^3/uL (0.1-0.6); Hematocrit 31.4 % (39.0-52.0); Hemoglobin 10.4 g/dL (13.0-18.0); Mean Corp Hgb Conc. 33.1 g/dL (33.0-37.0); Mean Corpuscular Volume 87.5 fL (80.0-94.0); Mean Platelet Volume 9.4 fL (7.4-10.4); Nucleated Red Blood Cells % 0 % (-); Platelet Count 189 10^3/uL (130-400); Red Blood Cell Count 3.59 10^6/uL (4.70-6.10); Red Cell Dist. Width 17.6 % (11.5-14.5); White Blood Cell Count 14.4 10^3/uL (4.8-10.8)
[2024-12-25 11:35] VITALS: BP 141/75
--- NOTE | 2024-12-25 11:49 | W.PN.HOSP.TC ---
Today's Communication/Plan
-
see A/P
Assessment / Plan
Assessment / Plan
HPI: 74 y/o male past medical history of metastatic pleomorphic sarcoma, B-Cell CLL, hypertension, chronic pain and prior enterococcus urinary tract infection who presented with fever and positive blood cultures.
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 The day EXCEL VBA DEVELOPER patient developed significant shakes / chills with associated fever 101F. Patient was seen here
overnight from the to and discharged home with diagnosis of viral syndrome. He was sent back to the ED as the single blood culture drawn revealed gram positive cocci in pairs/chains. Patient denies any further episodes of diarrhea. He
denies cough or shortness of breath. He denies dysuria, urinary frequency or urgency.
A/P:
# Sepsis POA secondary to Community Acquired Enterococcal Bacteremia, ? Possible Endocarditis vs ?2/2 Urinary Tract Infection source
Single blood culture drawn on 12/22 with Enterococcus
Follow repeat blood cultures from 12/23
Echo unrevealing: EF 55-60%. No obvious vegetation.
Cont vancomycin and added ampicillin per ID. Holding ceftriaxone per ID
ID on board
# Chronic Pain with Opioid Dependence
Continue Butrans Patch
Continue gabapentin
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
Continue fluticasone/salmeterol
Continue montelukast
# Essential Hypertension
Continue metoprolol with hold parameters
# Metastatic Pleomorphic Sarcoma
Patient is due to follow-up scans this weeks
# Chronically Elevated Transaminases/Alkaline Phosphatase
Stable
DVT proph: Lovenox SQ
Code Status: Full Code
Dispo: TBD per PT
DW at bedside
Anticipated Discharge: 24 - 48 hours
Subjective/Interval History
-
Date of Service: December 25, 2024
Objective Data
-
Labs:
Laboratory Results
12/25/24
06:53
WBC 14.4 H
Hgb 10.4 L
Hct 31.4 L
Plt Count 189
Sodium 135
Potassium 3.5
Chloride 103
Carbon Dioxide 20 L
BUN 14
Creatinine 0.6 L
Glucose 95
Calcium 8.1 L
Total Bilirubin 1.2
AST 86 H
ALT 79 H
Alkaline Phosphatase 260 H
Vital Signs:
Vital Signs
Temp Pulse Resp BP Pulse Ox
37.2 C 71 18 141/75 96
12/25/24 11:35 12/25/24 11:35 12/25/24 11:35 12/25/24 11:35 12/25/24 11:35
I&O
12/24/24 12/25/24 12/26/24
06:59 06:59 06:59
Intake Total 810 / 810 1079 / 1079
Output Total 1275 / 1275 2600 / 2600
Balance -465 / -465 -1521 / -1521
Review of Systems
-
All other systems: Reviewed and negative
Physical Exam
-
General: Well Developed, Well Nourished, No Apparent Distress, Comfortable and Conversant; Negative Respiratory Distress
HEENT: Normocephalic, Atraumatic, Nose Appears Normal and Ears Appear Normal; Negative Oxygen
Respiratory: Clear to Auscultation and Non Labored Respirations; Negative Accessory Resp Muscle Use
Cardiac: Regular Rhythm and S1/S2
GI: Soft, Nontender, Nondistended and Normal Bowel Sounds
Skin: Warm and Dry
Neuro: Awake, Alert, Oriented and AO x 3
Psych: Calm and Intact Judgement/Insight
Data Reviewed
-
Labs: Labs Reviewed by me
[2024-12-25 15:55] VITALS: BP 159/91
--- NOTE | 2024-12-25 16:48 | W.PN.ID1 ---
Date of Service
Date of Service: December 25, 2024
Today's Communication
- passed ampicillin challenge 12/24/24 - patient is not allergic to penicillin - allergy removed from chart
- restart ceftriaxone 2 gm IV q12
- stop vancomycin
- if blood cultures remain negative tomorrow, can place double lumen PICC line, I have submitted script to caseworker intake 12/25, duplicate copy sent to my office
Assessment / Plan
Community Acquired Enterococcal Bacteremia
Fever
Possible Endocarditis
Recent history of Enterococcal UTI
metastatic pleomorphic sarcoma, B-Cell CLL no on current treatment
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
Possible Immunosuppression
report of ADR with amoxicillin
- blood cultures x2 were done on cefepime, however not an effective treatment for the bacteria in question - Enterococcus
- 12/22 single set of blood cultures with enterococcus
- 10/12/24 amp sensitive E faecalis UTI treated with macrobid
- TTE - no neg vegetations
- EKG - no new blocks
- UA 12/23 not consistent with glomerulonephritis, doesnt appear to be source of bacteremia with polymicrobial culture
- RF pending
- passed ampicillin challenge 12/24/24 - patient is not allergic to penicillin - allergy removed from chart
- restart ceftriaxone 2 gm IV q12
- stop vancomycin
- if blood cultures remain negative tomorrow, can place double lumen PICC line, I have submitted script to caseworker intake 12/25, duplicate copy sent to my office
- follow clinically
Subjective / Review of Systems
afebrile
bp stable
tolerating current therapies - no rashes, difficulty breathing, etc
Vital Signs / Physical Exam
Vital Signs
Vital Signs
Temp Pulse Resp BP Pulse Ox
99.2 F 79 18 159/91 98
12/25/24 15:55 12/25/24 15:55 12/25/24 15:55 12/25/24 15:55 12/25/24 15:55
Physical Exam
Constitutional: No Acute Distress
Cardiovascular: Regular Rate and S1/S2; Negative Murmur or Rub
Pulmonary: Clear and Symmetric; Negative Wheezes or Rales
Gastrointestinal: Soft, Non Tender, Non Distended and Normal Bowel Sounds
Skin: Warm and Dry; Negative Rash or Jaundice
Objective Data
Lab Data
Lab Results
12/25/24 06:53
12/25/24 06:53
Estimated Creat Clear 101 ml/min 12/25/24 06:53
Lactic Acid 1.5 mmol/L (0.7-2.0) 12/23/24 22:22
Total Bilirubin 1.2 mg/dl (0.2-1.3) 12/25/24 06:53
AST 86 U/L (17-59) H 12/25/24 06:53
ALT 79 U/L (0-50) H 12/25/24 06:53
Alkaline Phosphatase 260 U/L (38-126) H 12/25/24 06:53
Most recent labs reviewed.
Micro Results:
12/23/24 22:59 Blood Culture - Preliminary
Blood/Venous No Growth in 24 hours- Final report to follow
12/23/24 22:59 Blood Culture - Preliminary
Blood/Venous No Growth in 24 hours- Final report to follow
12/23/24 19:30 Influenza Types A & B (ETHEL) - Final
Nasal Swab Negative for Influenza A & B, NAAT
Negative results must be combined with clinical observations
and patient history.
Nucleic Acid Amplification test (NAAT)performed on the
[employer] platform.
[2024-12-25] MEDS: LOVENOX 40 MG SC (17:57)
[2024-12-25] MEDS: STERILE WATER FOR INJECTION 20 ML IV (17:58)
[2024-12-25] MEDS: ROCEPHIN 2000 MG IV (17:58)
[2024-12-25 19:00] VITALS: BP 149/87
[2024-12-25] MEDS: NEURONTIN 900 MG PO (20:36)
[2024-12-25] MEDS: SINGULAIR 10 MG PO (20:37)
[2024-12-25 23:24] VITALS: BP 135/76
[2024-12-26] VITALS (9 sets, daily range): BP systolic 114–146; BP diastolic 71–91; PULSE 75; BMI 25.0
[2024-12-26] MEDS: LOPRESSOR 5 MG IV ×2 (01:25→17:46)
[2024-12-26] MEDS: TYLENOL 650 MG PO (01:30)
--- NOTE | 2024-12-26 01:45 | PTCARENOTE ---
pt tele alarming for HR >120. upon checking pt, pt c/o palpitations and SOB. pt work of breathing notably increased. pt with temp of 100.1, HR 147, BP 129/80, 89-91% on room air, RR 18. placed pt on 2L oxygen nasal cannula, sat up to 94-95%. prn IV
lopressor 5mg administered for HR >120. EKG done confirming afib with RVR. MANAGER ELIGIBILITY up to see pt. no new orders at this time- will continue to monitor closely.
--- NOTE | 2024-12-26 01:47 | W.PN.UPDATE ---
Update Note
Progress Note Update
~1:15 am Notified by RN that patient is in new onset afib w/RVR, HR 130-150's, BP 143/88, EKG done to confirm. Patient c/o SOB and palpitations. Patient was previously in NSR w/PAC's. PRN Metoprolol 5 mg IV given, HR 100-115's, remains in afib.
Placed on 2L NC, sat 94%. [facility] consulted for new onset afib w/RVR.
~2:15 am Patient converted back to NSR, HR 80-90's, BP 134/79. EKG done to confirm, showed NSR w/PAC's HR 87.
--- NOTE | 2024-12-26 02:48 | PTCARENOTE ---
pt converted back to NSR- EKG done to confirm, ENGINEERING GROUP MANAGER made aware.
[2024-12-26] MEDS: AMPICILLIN 108 MG IV ×6 (05:00→23:21)
[2024-12-26] MEDS: NEURONTIN 600 MG PO ×2 (05:00→16:05)
[2024-12-26] MEDS: STERILE WATER FOR INJECTION 20 ML IV ×2 (05:01→16:56)
[2024-12-26] MEDS: ROCEPHIN 2000 MG IV ×2 (05:01→16:56)
[2024-12-26 05:45] LABS: Hepatitis C Antibody Negative (Negative)
[2024-12-26 07:33] LABS: % Basophils 0.6 % (0-2); % Eosinophils 4.3 % (0-6); % Immature Granulocytes 1.2 % (0-0.5); % Lymphocytes 8.7 % (20.5-51.1); % Monocytes 11.9 % (1.7-9.3); % Neutrophils 73.3 % (42.2-75.2); Absolute Basophils 0.1 10^3/uL (0-0.2); Absolute Eosinophils 0.6 10^3/uL (0-0.7); Absolute Immature Granulocytes 0.2 10^3/uL (0-0.05); Absolute Lymphocytes 1.2 10^3/uL (1.2-3.4); Absolute Monocytes 1.6 10^3/uL (0.1-0.6); Absolute Neutrophils 9.8 10^3/uL (1.4-6.5); Hematocrit 32.2 % (39.0-52.0); Hemoglobin 10.9 g/dL (13.0-18.0); Mean Corp Hgb Conc. 33.9 g/dL (33.0-37.0); Mean Corpuscular Hgb 29.6 pg (27.0-31.0); Mean Corpuscular Volume 87.5 fL (80.0-94.0); Mean Platelet Volume 9.3 fL (7.4-10.4); Nucleated Red Blood Cells % 0.1 % (-); Platelet Count 200 10^3/uL (130-400); Red Blood Cell Count 3.68 10^6/uL (4.70-6.10); Red Cell Dist. Width 17.5 % (11.5-14.5); White Blood Cell Count 13.4 10^3/uL (4.8-10.8)
[2024-12-26 07:51] LABS: ALT (SGPT) 198 U/L (0-50); AST (SGOT) 232 U/L (17-59); Albumin 3.5 g/dl (3.5-5.0); Alkaline Phosphatase 373 U/L (38-126); Blood Urea Nitrogen 17 mg/dl (9-20); Calcium 8.4 mg/dl (8.4-10.2); Carbon Dioxide 23 mmol/L (22-30); Chloride 102 mmol/L (98-107); Direct Bilirubin 0.5 mg/dl (0.0-0.4); Estimated Creatinine Clearance 76 ml/min; Glucose 104 mg/dl (70-99); Potassium 4.1 mmol/L (3.5-5.1); Sodium 137 mmol/L (135-145); Total Bilirubin 0.8 mg/dl (0.2-1.3); Total Protein 5.7 g/dl (6.3-8.2); eGFR > 60.00
[2024-12-26] MEDS: ADVAIR HFA 230/21 MCG INHALER 2 PUFF INH ×2 (08:03→19:58)
[2024-12-26] MEDS: NIASPAN TIME RELEASE 500 MG PO ×2 (09:27→20:29)
[2024-12-26] MEDS: TOPROL XL 100 MG PO ×2 (09:27→20:30)
--- NOTE | 2024-12-26 10:07 | CON.CAR ---
Addendum entered and electronically signed by Bob Maxwell MD 12/26/24 12:34:
I saw and examined the patient.
The PIERCING ARTIST's note was reviewed and I agree with the note.
Comment: 74 yo male with PSVT, moderate to severe MR, palpitations and metastatic pleomorphic sarcoma of the spine on immunotherapy (Cemiplimab, 12/09/24), B-Cell CLL (managed by Dr. Frost at [facility]), who is here with c/o fevers 12/23/24 with associated
fevers/chills x 3 days.
We are consulted for new onset Afib with RVR at 1:15am, he was given IV Lopressor and converted to NSR again at 2:15am. Also noted 5 beats NSVT, asymptomatic.
He is back in SR.
Recommend OAC can start Eliquis, but can consider Xarelto/dabigatran/warfarin if affordability is an issue.
Cont metop.
We will sign off please call with questions/concerns.
Original Note:
Consultation
Consultation Request
Date/Time Consultation Requested: 12/26/24 2a
Date/Time Consultation Performed: 12/26/24 9:15a
Requesting Provider: LINDSAY Jordan
Performing Provider: LINDSAY Yeh for Dr. Maxwell
Reason for Consultation: new onset Afib with RVR
Medical History
-
Chief Complaint: fever
History of Present Illness:
Mr. Bond is a 74 yo male with PSVT, moderate to severe MR, palpitations and metastatic pleomorphic sarcoma of the spine on immunotherapy (Cemiplimab, 12/09/24), B-Cell CLL (managed by Dr. Frost at [facility]), who is here with c/o fevers 12/23/24 with
associated fevers/chills x 3 days. He is admitted to the hospitalist service and ID is following. We are consulted for new onset Afib with RVR at 1:15am, he was given IV Lopressor and converted to NSR again at 2:15am. Also noted 5 beats NSVT,
asymptomatic. He is aware of his heart racing at times.
Past Medical History
Past Medical History: Other (as above)
Social History
Tobacco: Non-Smoker
Alcohol: None
Living: With Family
Family History
Family History: Reviewed & Not Pertinent
Allergies / Home Medications
Allergy/AdvReac Type Severity Reaction Status Date / Time
seasonal Allergy congestion Uncoded 12/23/24 19:16
�Medication �Instructions �Recorded �Confirmed �Type
fluticasone 232 mcg-salmeterol 14 1 ea IH BID Lung/Breathing Issues 11/10/21 12/23/24 History
mcg/actuation breath activated
powdr
[id number] C-Mn 750 1 tab PO DAILY Supplement 11/10/21 12/23/24 History
mg-600 mg-55 mg-5 mg tablet
montelukast 10 mg tablet 10 mg PO HS Allergies 11/10/21 12/23/24 History
acetaminophen 500 mg tablet 1,000 mg PO QID Pain 12/23/24 12/23/24 History
buprenorphine 5 mcg/hour weekly 1 patch transdermal WE RYAN 12/23/24 12/23/24 History
transdermal patch
gabapentin 300 mg capsule 600 mg PO BID@0600,1500 12/23/24 12/23/24 History
NEUROPATHIC PAIN
gabapentin 300 mg capsule 900 mg PO HS NEUROPATHIC PAIN 12/23/24 12/23/24 History
metoprolol succinate 100 mg 100 mg PO BID Blood Pressure 12/23/24 12/23/24 History
tablet,extended release 24 hr
multivitamin 1 tab PO DAILY Supplement 12/23/24 12/23/24 History
niacin 500 mg tablet 500 mg PO BID Supplement 12/23/24 12/23/24 History
polyethylene glycol 3350 17 gram 17 g PO DAILYPRN PRN constipation 12/23/24 12/23/24 History
oral powder packet
Review of Systems
-
History Source: Patient
All other systems: Negative unless noted
Physical Exam
Vital Signs
Temp Pulse Resp BP Pulse Ox
98.1 F 65 18 114/60 95
12/26/24 08:13 12/26/24 09:27 12/26/24 08:13 12/26/24 09:27 12/26/24 08:13
Lab Results
12/26/24 06:43
12/26/24 06:43
Physical Exam
General: No Apparent Distress and Other (elderly)
HEENT: Normocephalic and Moist Mucous Membranes
Respiratory: Clear and Non Labored Respirations
Cardiac: S1/S2 and Regular Rhythm
Breast: Deferred by me
GI: Soft, Non Tender, Non Distended and Normal Bowel Sounds
Rectal: Deferred by Provider
Musculoskeletal: No Clubbing, No Cyanosis and No Edema
Skin: Warm and Dry
Neuro: AO x 3
Psych: Calm
Impression / Plan
-
Afib - new onset, RVR.
- treated with IV Lopressor 5mg and converted to NSR.
- continue Toprol 100mg BID.
- [id number] VASc score is 2 (age) and with h/o cancer, recommend OAC.
- Eliquis 5mg BID, will have case management investigate cost.
- back in NSR, monitor on tele.
- echo 12/24/24 as below.
Fevers - positive blood cultures Enterococcus faecalis.
- ID managing.
- IV ABX.
- no vegetation on TTE.
Mitral regurgitation - moderate on echo.
- stable, asymptomatic, monitor.
Pleomorphic sarcoma - metastatic disease.
- undergoing treatments managed by [facility] Dr. Frost.
Data Reviewed
-
EKG: Tracing Personally Visualized and interpreted (NSR then ST then Afib 119 bpm then NSR)
Medical Tests (Nuc Med, Echo etc): Report Reviewed by me (echo 12/24/24: EF 55-60%, mild cLVH, mod MR, no vegetation.)
Labs: Labs Reviewed by me
Old Records: Reviewed
--- NOTE | 2024-12-26 13:37 | W.PN.HOSP.TC ---
Today's Communication/Plan
-
PICC Line
to receive IV abx post dc
Assessment / Plan
Assessment / Plan
HPI: 74 y/o male past medical history of metastatic pleomorphic sarcoma, B-Cell CLL, hypertension, chronic pain and prior enterococcus urinary tract infection who presented with fever and positive blood cultures.
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 Patient was seen here
overnight from the to and discharged home with diagnosis of viral syndrome. He was sent back to the ED as the single blood culture drawn revealed gram positive cocci in pairs/chains. Patient denies any further episodes of diarrhea. He
denies cough or shortness of breath. He denies dysuria, urinary frequency or urgency.
A/P:
# Sepsis POA secondary to Community Acquired Enterococcal Bacteremia, ? Possible Endocarditis vs ?2/2 Urinary Tract Infection source
Single blood culture drawn on 12/22 with Enterococcus
Follow repeat blood cultures from 12/23-NGTD
Echo unrevealing: EF 55-60%. No obvious vegetation.
Changed to Rocephin 2 gms IV q12h and added ampicillin 2gms IV q4h per ID.
ID on board
PICC line to be placed
Discussed with Dr. Carlos, concern is chemoRx during acute infection. Will need to touch base with Oncology
# Chronic Pain with Opioid Dependence
Continue Butrans Patch
Continue gabapentin
Episode of probable regular a.fib at 1:15 am, converted to NSR. Discussed with Dr. Maxwell, will start Eliquis
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
Continue fluticasone/salmeterol
Continue montelukast
# Essential Hypertension
Continue metoprolol with hold parameters
# Metastatic Pleomorphic Sarcoma
Patient is due to follow-up scans this weeks
# Chronically Elevated Transaminases/Alkaline Phosphatase
Stable
DVT proph: Lovenox SQ
Code Status: Full Code
Dispo: will need PT if discharged to home
DW at bedside, multiple concerns
Anticipated Discharge: 24 - 48 hours
Subjective/Interval History
-
Date of Service: December 26, 2024
Awake, alert
Objective Data
-
Labs:
Laboratory Results
12/26/24
06:43
WBC 13.4 H
Hgb 10.9 L
Hct 32.2 L
Plt Count 200
Sodium 137
Potassium 4.1
Chloride 102
Carbon Dioxide 23
BUN 17
Creatinine 0.8
Glucose 104 H
Calcium 8.4
Total Bilirubin 0.8
AST 232 H
ALT 198 H
Alkaline Phosphatase 373 H
Vital Signs:
Vital Signs
Temp Pulse Resp BP Pulse Ox
98 F 75 18 141/80 95
12/26/24 11:50 12/26/24 11:50 12/26/24 11:50 12/26/24 11:50 12/26/24 11:50
I&O
12/25/24 12/26/24 12/27/24
06:59 06:59 06:59
Intake Total 1079 / 1079 1808 / 1808
Output Total 2600 / 2600 3150 / 3150
Balance -1521 / -1521 -1342 / -1342
Review of Systems
-
History Source: Patient and Family ( at bedside)
Constitutional: Denies Fever
EENT: Reports No Symptoms Reported
Respiratory: Reports No Symptoms
Cardiac: Reports No Symptoms
Abdomen/GI: Reports No Symptoms
Musculoskeletal: Reports Joint Pain (chronic back and hip pain)
Physical Exam
-
General: Well Developed, Well Nourished, No Apparent Distress and Appears Chronically Ill
HEENT: Normocephalic, Atraumatic and Moist Mucous Membranes
Respiratory: Clear to Auscultation; Negative Wheezes, Rales or Rhonchi
Cardiac: Regular Rhythm and S1/S2
GI: Soft, Nontender and Nondistended
Musculoskeletal: No Clubbing, No Cyanosis and No Edema
Neuro: Awake, Alert and Oriented
[2024-12-26] MEDS: ELIQUIS 5 MG PO ×2 (13:44→20:29)
--- NOTE | 2024-12-26 15:25 | W.PN.ID1 ---
Date of Service
Date of Service: December 26, 2024
Today's Communication
PLace picc. Continue abx's.
Assessment / Plan
Community Acquired Enterococcal Bacteremia
Fever - resolved
Possible Endocarditis
Recent history of Enterococcal UTI
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
Possible Immunosuppression
report of ADR with amoxicillin
- blood cultures x2 neg to date (were done on cefepime, however not an effective treatment for the bacteria in question - Enterococcus)
- 12/22 single set of blood cultures with enterococcus
- 10/12/24 amp sensitive E faecalis UTI treated with macrobid
- TTE - no neg vegetations
- EKG - no new blocks
- UA 12/23 not consistent with glomerulonephritis, doesnt appear to be source of bacteremia with polymicrobial culture
- RF pending
- passed ampicillin challenge 12/24/24 - patient is not allergic to penicillin - allergy removed from chart
- Continue ceftriaxone 2 gm IV q12 and Ampicillin 2g IV q4h, anticipate 6 weeks.
- Follow weekly CBC/diff, CMP.
- Ordered double-lumen PICC.
- Dr. Slaughter already submitted script to case preparer and liner 12/25, duplicate copy sent to my office
- Regarding immunotherapy, may be best to hold immunosuppressive treatment until infection resolves.
- follow clinically
Chief Complaint
-: Bacteremia
Subjective / Review of Systems
at bedside.
Pt worked with PT. No complaints.
Vital Signs / Physical Exam
Vital Signs
Vital Signs
Temp Pulse Resp BP Pulse Ox
98 F 75 18 141/80 95
12/26/24 11:50 12/26/24 11:50 12/26/24 11:50 12/26/24 11:50 12/26/24 11:50
Physical Exam
Constitutional: No Acute Distress
Cardiovascular: Regular Rate and S1/S2; Negative Murmur or Rub
Pulmonary: Clear
Gastrointestinal: Soft, Non Tender, Non Distended and Normal Bowel Sounds
Skin: Warm and Dry
Neurological: AO x 3
Objective Data
Lab Data
Lab Results
12/26/24 06:43
12/26/24 06:43
Estimated Creat Clear 76 ml/min 12/26/24 06:43
Lactic Acid 1.5 mmol/L (0.7-2.0) 12/23/24 22:22
Total Bilirubin 0.8 mg/dl (0.2-1.3) 12/26/24 06:43
AST 232 U/L (17-59) H 12/26/24 06:43
ALT 198 U/L (0-50) H 12/26/24 06:43
Alkaline Phosphatase 373 U/L (38-126) H 12/26/24 06:43
Most recent labs reviewed.
Micro Results:
12/23/24 22:59 Blood Culture - Preliminary
Blood/Venous No Growth in 48 hours- Final report to follow
12/23/24 22:59 Blood Culture - Preliminary
Blood/Venous No Growth in 48 hours- Final report to follow
12/23/24 19:30 Influenza Types A & B (ETHEL) - Final
Nasal Swab Negative for Influenza A & B, NAAT
Negative results must be combined with clinical observations
and patient history.
Nucleic Acid Amplification test (NAAT)performed on the
[employer] platform.
Care Review
Plan reviewed with: Physician (Dr. Guadarrama)
[2024-12-26] MEDS: COLACE 100 MG PO (18:15)
--- NOTE | 2024-12-26 18:25 | CM ---
Spoke with attending who stated that patient will need IV ABX. Received script from ID patient will need PICC line. Ampicillin 12g IV over 24 hrs continuous infusion and Ceftriaxone 2 gm IV Q 12. Copy of script on chart for attending. Patient's
stated that she has [facility], will need to make a referral to [facility] infusion.
Plan: Case management will continue to follow and assist with discharge planning. Home with IV ABX.
[2024-12-26] MEDS: NEURONTIN 900 MG PO (20:30)
[2024-12-26] MEDS: SINGULAIR 10 MG PO (20:31)
[2024-12-27 03:40] VITALS: BP 115/81
[2024-12-27] MEDS: AMPICILLIN 108 MG IV ×5 (04:57→20:46)
[2024-12-27 05:19] LABS: % Basophils 0.7 % (0-2); % Eosinophils 2.5 % (0-6); % Immature Granulocytes 1.2 % (0-0.5); % Monocytes 10.5 % (1.7-9.3); % Neutrophils 77.1 % (42.2-75.2); Absolute Basophils 0.1 10^3/uL (0-0.2); Absolute Eosinophils 0.4 10^3/uL (0-0.7); Absolute Immature Granulocytes 0.2 10^3/uL (0-0.05); Absolute Lymphocytes 1.2 10^3/uL (1.2-3.4); Absolute Monocytes 1.6 10^3/uL (0.1-0.6); Absolute Neutrophils 11.8 10^3/uL (1.4-6.5); Hematocrit 34.2 % (39.0-52.0); Hemoglobin 11.6 g/dL (13.0-18.0); Mean Corp Hgb Conc. 33.9 g/dL (33.0-37.0); Mean Corpuscular Hgb 29.1 pg (27.0-31.0); Mean Corpuscular Volume 85.9 fL (80.0-94.0); Mean Platelet Volume 9.3 fL (7.4-10.4); Nucleated Red Blood Cells % 0.1 % (-); Platelet Count 218 10^3/uL (130-400); Red Blood Cell Count 3.98 10^6/uL (4.70-6.10); Red Cell Dist. Width 17.3 % (11.5-14.5); White Blood Cell Count 15.3 10^3/uL (4.8-10.8)
[2024-12-27 05:29] LABS: ALT (SGPT) 162 U/L (0-50); AST (SGOT) 117 U/L (17-59); Albumin 3.8 g/dl (3.5-5.0); Alkaline Phosphatase 422 U/L (38-126); Blood Urea Nitrogen 16 mg/dl (9-20); Calcium 8.7 mg/dl (8.4-10.2); Carbon Dioxide 19 mmol/L (22-30); Chloride 102 mmol/L (98-107); Estimated Creatinine Clearance 87 ml/min; Glucose 106 mg/dl (70-99); Potassium 4.1 mmol/L (3.5-5.1); Sodium 135 mmol/L (135-145); Total Bilirubin 0.9 mg/dl (0.2-1.3); Total Protein 6.2 g/dl (6.3-8.2); eGFR > 60.00
[2024-12-27] MEDS: NEURONTIN 600 MG PO ×2 (05:56→15:22)
[2024-12-27] MEDS: STERILE WATER FOR INJECTION 20 ML IV ×2 (05:56→17:06)
[2024-12-27] MEDS: ROCEPHIN 2000 MG IV ×2 (05:56→17:05)
[2024-12-27 06:00] VITALS: BMI 24.6
[2024-12-27 07:00] VITALS: BP 144/85
[2024-12-27] MEDS: ADVAIR HFA 230/21 MCG INHALER 2 PUFF INH ×2 (07:54→19:14)
[2024-12-27] MEDS: NIASPAN TIME RELEASE 500 MG PO ×2 (07:56→20:45)
[2024-12-27] MEDS: ELIQUIS 5 MG PO ×2 (07:56→20:45)
[2024-12-27] MEDS: TOPROL XL 100 MG PO ×2 (07:56→20:45)
[2024-12-27 11:43] VITALS: BP 136/81
[2024-12-27 15:00] VITALS: BP 139/73
--- NOTE | 2024-12-27 18:18 | W.PN.HOSP.TC ---
Today's Communication/Plan
-
Will need IV abx post dc as per ID
Assessment / Plan
Assessment / Plan
HPI: 74 y/o male past medical history of metastatic pleomorphic sarcoma, B-Cell CLL, hypertension, chronic pain and prior enterococcus urinary tract infection who presented with fever and positive blood cultures.
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 The day [employer]P patient developed significant shakes / chills with associated fever 101F. Patient was seen here
overnight from the to and discharged home with diagnosis of viral syndrome. He was sent back to the ED as the single blood culture drawn revealed gram positive cocci in pairs/chains. Patient denies any further episodes of diarrhea. He
denies cough or shortness of breath. He denies dysuria, urinary frequency or urgency.
A/P:
# Sepsis POA secondary to Community Acquired Enterococcal Bacteremia, ? Possible Endocarditis vs ?2/2 Urinary Tract Infection source
Single blood culture drawn on 12/22 with Enterococcus
Follow repeat blood cultures from 12/23-NGTD
Echo unrevealing: EF 55-60%. No obvious vegetation.
Changed to Rocephin 2 gms IV q12h and added ampicillin 2gms IV q4h per ID.
ID on board
PICC line placed
Discussed with Dr. Carlos, concern is chemoRx during acute infection. Discussed with Dr. Davila, who knows the patient well and who states that there will not be any issue in pt receiving his immunotherapy while on the antibiotics. made aware of
this information.
He is to get his preinfusion labs, CBC, CMP, T4 and TSH on Friday 12/29 and infusion on 01/01.
# Chronic Pain with Opioid Dependence
Continue Butrans Patch
Continue gabapentin
Episode of probable regular a.fib at 1:15 am, converted to NSR. Discussed with Dr. Maxwell, will start Eliquis
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
Continue fluticasone/salmeterol
Continue montelukast
# Essential Hypertension
Continue metoprolol with hold parameters
# Metastatic Pleomorphic Sarcoma
Patient is due to follow-up scans this weeks
# Chronically Elevated Transaminases/Alkaline Phosphatase
Stable
DVT proph: Lovenox SQ
Code Status: Full Code
Dispo: will need PT if discharged to home
DW at bedside, multiple concerns
Anticipated Discharge: 24 - 48 hours
Subjective/Interval History
-
Date of Service: December 27, 2024
Awake, alert, appears better today
Objective Data
-
Vital Signs:
Vital Signs
Temp Pulse Resp BP Pulse Ox
98.9 F 79 20 139/73 93
12/27/24 15:00 12/27/24 15:00 12/27/24 15:00 12/27/24 15:00 12/27/24 15:00
I&O
12/26/24 12/27/24 12/28/24
06:59 06:59 06:59
Intake Total 1808 / 1808
Output Total 3150 / 3150 1775 / 1775
Balance -1342 / -1342 -1775 / -1775
Review of Systems
-
History Source: Patient and Family ( at bedside)
Constitutional: Denies Fever
EENT: Reports No Symptoms Reported
Respiratory: Reports No Symptoms
Cardiac: Reports No Symptoms
Abdomen/GI: Reports No Symptoms
Musculoskeletal: Reports Joint Pain (chronic back and hip pain)
Physical Exam
-
General: Well Developed, Well Nourished, No Apparent Distress and Appears Chronically Ill
HEENT: Normocephalic, Atraumatic and Moist Mucous Membranes
Respiratory: Clear to Auscultation; Negative Wheezes, Rales or Rhonchi
Cardiac: Regular Rhythm and S1/S2
GI: Soft, Nontender and Nondistended
Musculoskeletal: No Clubbing, No Cyanosis and No Edema
Neuro: Awake, Alert and Oriented
[2024-12-27 19:48] VITALS: BP 135/76
[2024-12-27] MEDS: NEURONTIN 900 MG PO (20:46)
[2024-12-27] MEDS: SINGULAIR 10 MG PO (20:46)
[2024-12-27 23:29] VITALS: BP 143/87
[2024-12-28] MEDS: AMPICILLIN 108 MG IV ×7 (00:40→23:04)
[2024-12-28 03:47] VITALS: BP 140/84
[2024-12-28] MEDS: NEURONTIN 600 MG PO ×2 (05:15→15:04)
[2024-12-28] MEDS: ROCEPHIN 2000 MG IV ×2 (05:15→17:15)
[2024-12-28] MEDS: STERILE WATER FOR INJECTION 20 ML IV ×2 (05:15→17:14)
[2024-12-28 06:00] VITALS: BMI 24.8
[2024-12-28] MEDS: ADVAIR HFA 230/21 MCG INHALER 2 PUFF INH ×2 (07:32→19:23)
[2024-12-28 07:55] VITALS: BP 133/81
[2024-12-28] MEDS: ELIQUIS 5 MG PO ×2 (08:14→20:50)
[2024-12-28] MEDS: TOPROL XL 100 MG PO ×2 (08:14→20:51)
[2024-12-28] MEDS: NIASPAN TIME RELEASE 500 MG PO ×2 (08:14→20:50)
[2024-12-28 09:03] LABS: % Basophils 0.7 % (0-2); % Eosinophils 4.4 % (0-6); % Immature Granulocytes 2.7 % (0-0.5); % Lymphocytes 10.7 % (20.5-51.1); % Monocytes 11.9 % (1.7-9.3); % Neutrophils 69.6 % (42.2-75.2); Absolute Basophils 0.1 10^3/uL (0-0.2); Absolute Eosinophils 0.5 10^3/uL (0-0.7); Absolute Immature Granulocytes 0.3 10^3/uL (0-0.05); Absolute Lymphocytes 1.2 10^3/uL (1.2-3.4); Absolute Monocytes 1.3 10^3/uL (0.1-0.6); Absolute Neutrophils 7.5 10^3/uL (1.4-6.5); Hemoglobin 11.4 g/dL (13.0-18.0); Mean Corp Hgb Conc. 33.5 g/dL (33.0-37.0); Mean Corpuscular Hgb 28.9 pg (27.0-31.0); Mean Corpuscular Volume 86.3 fL (80.0-94.0); Mean Platelet Volume 9.1 fL (7.4-10.4); Nucleated Red Blood Cells % 0.2 % (-); Platelet Count 187 10^3/uL (130-400); Red Blood Cell Count 3.94 10^6/uL (4.70-6.10); Red Cell Dist. Width 17.7 % (11.5-14.5); White Blood Cell Count 10.8 10^3/uL (4.8-10.8)
[2024-12-28 09:20] LABS: Blood Urea Nitrogen 17 mg/dl (9-20); Calcium 8.6 mg/dl (8.4-10.2); Carbon Dioxide 22 mmol/L (22-30); Chloride 101 mmol/L (98-107); Estimated Creatinine Clearance 87 ml/min; Glucose 100 mg/dl (70-99); Potassium 3.8 mmol/L (3.5-5.1); Sodium 134 mmol/L (135-145); eGFR > 60.00
[2024-12-28 11:50] VITALS: BP 130/71
--- NOTE | 2024-12-28 11:55 | W.PN.ID1 ---
Date of Service
Date of Service: December 28, 2024
Today's Communication
Continue amp/CTX
Assessment / Plan
Community Acquired Enterococcal Bacteremia
Fever - resolved
Possible Endocarditis
Recent history of Enterococcal UTI
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
Possible Immunosuppression
report of ADR with amoxicillin
- blood cultures x2 neg to date (were done on cefepime, however not an effective treatment for the bacteria in question - Enterococcus)
- 12/22 single set of blood cultures with enterococcus
- 10/12/24 amp sensitive E faecalis UTI treated with macrobid
- TTE - no neg vegetations
- EKG - no new blocks
- UA 12/23 not consistent with glomerulonephritis, doesnt appear to be source of bacteremia with polymicrobial culture
- RF pending
- passed ampicillin challenge 12/24/24 - patient is not allergic to penicillin - allergy removed from chart
- Continue ceftriaxone 2 gm IV q12 and Ampicillin 2g IV q4h, anticipate 6 weeks.
- Follow weekly CBC/diff, CMP.
- double-lumen PICC in place
- Dr. Slaughter already submitted script to case finishing machine adjuster 12/25, duplicate copy sent to office
- Per Dr. Davila, safe to continue his immunotherapy while on abx's.
Chief Complaint
-: Bacteremia
Subjective / Review of Systems
Feels OK today.
Vital Signs / Physical Exam
Vital Signs
Vital Signs
Temp Pulse Resp BP Pulse Ox
98.2 F 70 16 130/71 94
12/28/24 11:50 12/28/24 11:50 12/28/24 11:50 12/28/24 11:50 12/28/24 11:50
Physical Exam
Constitutional: No Acute Distress
Cardiovascular: Regular Rate and S1/S2; Negative Murmur or Rub
Pulmonary: Clear
Gastrointestinal: Soft, Non Tender, Non Distended and Normal Bowel Sounds
Skin: Warm and Dry
Neurological: AO x 3
Lines: PICC
Objective Data
Lab Data
Lab Results
12/28/24 08:45
12/28/24 08:45
Estimated Creat Clear 87 ml/min 12/28/24 08:45
Lactic Acid 1.5 mmol/L (0.7-2.0) 12/23/24 22:22
Total Bilirubin 0.9 mg/dl (0.2-1.3) 12/27/24 04:55
AST 117 U/L (17-59) H 12/27/24 04:55
ALT 162 U/L (0-50) H 12/27/24 04:55
Alkaline Phosphatase 422 U/L (38-126) H 12/27/24 04:55
Most recent labs reviewed.
Micro Results:
12/23/24 22:59 Blood Culture - Preliminary
Blood/Venous No Growth in 4 days- Final report to follow
12/23/24 22:59 Blood Culture - Preliminary
Blood/Venous No Growth in 4 days- Final report to follow
12/23/24 19:30 Influenza Types A & B (ETHEL) - Final
Nasal Swab Negative for Influenza A & B, NAAT
Negative results must be combined with clinical observations
and patient history.
Nucleic Acid Amplification test (NAAT)performed on the
[employer] platform.
Care Review
Plan reviewed with: Physician (Dr. Guadarrama)
--- NOTE | 2024-12-28 13:34 | W.PN.HOSP.TC ---
Today's Communication/Plan
-
will order scheduled labs
Assessment / Plan
Assessment / Plan
HPI: 74 y/o male past medical history of metastatic pleomorphic sarcoma, B-Cell CLL, hypertension, chronic pain and prior enterococcus urinary tract infection who presented with fever and positive blood cultures.
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 The day [employer]SEMBL[employer]UC[employer] patient developed significant shakes / chills with associated fever 101F. Patient was seen here
overnight from the to and discharged home with diagnosis of viral syndrome. He was sent back to the ED as the single blood culture drawn revealed gram positive cocci in pairs/chains. Patient denies any further episodes of diarrhea. He
denies cough or shortness of breath. He denies dysuria, urinary frequency or urgency.
A/P:
# Sepsis POA secondary to Community Acquired Enterococcal Bacteremia, ? Possible Endocarditis vs ?2/2 Urinary Tract Infection source
Single blood culture drawn on 12/22 with Enterococcus
Follow repeat blood cultures from 12/23-NGTD
Echo unrevealing: EF 55-60%. No obvious vegetation.
Changed to Rocephin 2 gms IV q12h and added ampicillin 2gms IV q4h per ID.
ID on board
PICC line placed
Discussed with Dr. Carlos, concern is chemoRx during acute infection. Discussed with Dr. Davila, who knows the patient well and who states that there will not be any issue in pt receiving his immunotherapy while on the antibiotics. made aware of
this information.
He is to get his preinfusion labs, CBC, CMP, T4 and TSH on Friday 12/29 and infusion on 01/01.
Await CM obtaining clearance to begin outpt abx therapy
# Chronic Pain with Opioid Dependence
Continue Butrans Patch
Continue gabapentin
Episode of probable regular a.fib morning of 12/26 at 1:15 am, converted to NSR. Discussed with Dr. Maxwell, will start Eliquis
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
Continue fluticasone/salmeterol
Continue montelukast
# Essential Hypertension
Continue metoprolol with hold parameters
# Metastatic Pleomorphic Sarcoma
Patient is due to follow-up scans this weeks
# Chronically Elevated Transaminases/Alkaline Phosphatase
Stable
DVT proph: Lovenox SQ
Code Status: Full Code
Dispo: will need PT if discharged to home
DW at bedside, multiple concerns
Anticipated Discharge: 24 - 48 hours
Subjective/Interval History
-
Date of Service: December 28, 2024
Pt is sleepy today, extensively reviewed with at bedside
Objective Data
-
Labs:
Laboratory Results
12/28/24
08:45
WBC 10.8
Hgb 11.4 L
Hct 34.0 L
Plt Count 187
Sodium 134 L
Potassium 3.8
Chloride 101
Carbon Dioxide 22
BUN 17
Creatinine 0.7
Glucose 100 H
Calcium 8.6
Vital Signs:
Vital Signs
Temp Pulse Resp BP Pulse Ox
98.2 F 70 16 130/71 94
12/28/24 11:50 12/28/24 11:50 12/28/24 11:50 12/28/24 11:50 12/28/24 11:50
I&O
12/27/24 12/28/24 12/29/24
06:59 06:59 06:59
Intake Total 1464 / 1464
Output Total 1774 / 1774 2830 / 2830
Balance -1775 / -1775 -1366 / -1366
Review of Systems
-
History Source: Patient and Family ( at bedside)
Constitutional: Denies Fever
EENT: Reports No Symptoms Reported
Respiratory: Reports No Symptoms
Cardiac: Reports No Symptoms
Abdomen/GI: Reports No Symptoms
Musculoskeletal: Reports Joint Pain (chronic back and hip pain)
Physical Exam
-
General: Well Developed, Well Nourished, No Apparent Distress and Appears Chronically Ill
HEENT: Normocephalic, Atraumatic and Moist Mucous Membranes
Respiratory: Clear to Auscultation; Negative Wheezes, Rales or Rhonchi
Cardiac: Regular Rhythm and S1/S2
GI: Soft, Nontender and Nondistended
Musculoskeletal: No Clubbing, No Cyanosis and No Edema
Neuro: Oriented; Negative Awake (sleepy)
--- NOTE | 2024-12-28 15:18 | CM ---
CM consulted for burkett check for Eliquis. Spoke w/ patient's spouse, confirmed rx plan is through [employer]. Provided rx plan information.
CM called [employer] pharmacy [facility] ( ), was prompted to a message informing that office is closed today. CM will need to attempt tomorrow to review coverage.
[2024-12-28 15:55] VITALS: BP 140/85
[2024-12-28 19:13] VITALS: BP 131/79
[2024-12-28] MEDS: NEURONTIN 900 MG PO (20:50)
[2024-12-28] MEDS: SINGULAIR 10 MG PO (20:50)
[2024-12-28 23:32] VITALS: BP 143/90
[2024-12-29] VITALS (7 sets, daily range): BP systolic 112–146; BP diastolic 77–89; PULSE 87; BMI 24.6
[2024-12-29] MEDS: COLACE 100 MG PO (00:07)
[2024-12-29] MEDS: ROCEPHIN 2000 MG IV ×2 (05:07→17:41)
[2024-12-29] MEDS: AMPICILLIN 108 MG IV ×6 (05:07→23:08)
[2024-12-29] MEDS: STERILE WATER FOR INJECTION 20 ML IV ×2 (05:08→17:42)
[2024-12-29] MEDS: NEURONTIN 600 MG PO ×2 (05:08→16:08)
[2024-12-29 05:27] LABS: % Basophils 0.7 % (0-2); % Eosinophils 4.6 % (0-6); % Immature Granulocytes 3.4 % (0-0.5); % Neutrophils 73.3 % (42.2-75.2); Absolute Basophils 0.1 10^3/uL (0-0.2); Absolute Eosinophils 0.6 10^3/uL (0-0.7); Absolute Immature Granulocytes 0.5 10^3/uL (0-0.05); Absolute Lymphocytes 1.2 10^3/uL (1.2-3.4); Absolute Monocytes 1.2 10^3/uL (0.1-0.6); Absolute Neutrophils 9.9 10^3/uL (1.4-6.5); Hematocrit 32.3 % (39.0-52.0); Hemoglobin 10.8 g/dL (13.0-18.0); Mean Corp Hgb Conc. 33.4 g/dL (33.0-37.0); Mean Corpuscular Hgb 28.9 pg (27.0-31.0); Mean Corpuscular Volume 86.4 fL (80.0-94.0); Mean Platelet Volume 8.9 fL (7.4-10.4); Nucleated Red Blood Cells % 0.2 % (-); Platelet Count 208 10^3/uL (130-400); Red Blood Cell Count 3.74 10^6/uL (4.70-6.10); Red Cell Dist. Width 17.5 % (11.5-14.5); White Blood Cell Count 13.5 10^3/uL (4.8-10.8)
[2024-12-29 05:40] LABS: ALT (SGPT) 118 U/L (0-50); AST (SGOT) 63 U/L (17-59); Albumin 3.1 g/dl (3.5-5.0); Alkaline Phosphatase 407 U/L (38-126); Blood Urea Nitrogen 20 mg/dl (9-20); Calcium 8.4 mg/dl (8.4-10.2); Carbon Dioxide 22 mmol/L (22-30); Chloride 103 mmol/L (98-107); Estimated Creatinine Clearance 87 ml/min; Glucose 98 mg/dl (70-99); Sodium 135 mmol/L (135-145); Total Bilirubin 0.7 mg/dl (0.2-1.3); Total Protein 5.4 g/dl (6.3-8.2); eGFR > 60.00
[2024-12-29 06:13] LABS: TSH 3.26 uIU/ml (0.47-4.68)
[2024-12-29] MEDS: ADVAIR HFA 230/21 MCG INHALER 2 PUFF INH ×2 (07:24→19:27)
[2024-12-29] MEDS: TOPROL XL 100 MG PO ×2 (09:00→20:14)
[2024-12-29] MEDS: NIASPAN TIME RELEASE 500 MG PO ×2 (09:00→20:14)
[2024-12-29] MEDS: ELIQUIS 5 MG PO ×2 (09:01→20:13)
--- NOTE | 2024-12-29 11:10 | W.PN.ID1 ---
Date of Service
Date of Service: December 29, 2024
Today's Communication
- stable for dc from ID perspective
Assessment / Plan
Community Acquired Enterococcal Bacteremia
Fever - resolved
Possible Endocarditis
Recent history of Enterococcal UTI
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
Possible Immunosuppression
- 12/23 blood cultures finalized negative (on cefepime)
- 12/22 single set of blood cultures with enterococcus
- 10/12/24 amp sensitive E faecalis UTI treated with macrobid
- TTE - no neg vegetations
- EKG - no new blocks
- UA 12/23 not consistent with glomerulonephritis, doesnt appear to be source of bacteremia with polymicrobial culture
- RF remains pending
- Continue Ampicillin 2g IV q4h and ceftriaxone 2 gm IV q12, anticipate 6 weeks.
- Weekly CBC/diff and CMP to be done weekly and sent to my office while on OPAT
- double-lumen PICC in place
- submitted script to patient case coordinator 12/25, additional copy on the paper chart
- Per Dr. Davila, safe to continue his immunotherapy while on abx's.
- stable for dc from ID perspective
Chief Complaint
-: Bacteremia
Subjective / Review of Systems
afebrile
bp stable
no overnight events
tolerating current therapies
Vital Signs / Physical Exam
Vital Signs
Vital Signs
Temp Pulse Resp BP Pulse Ox
98.2 F 86 18 130/84 98
12/29/24 08:16 12/29/24 08:16 12/29/24 08:16 12/29/24 08:16 12/29/24 08:16
Physical Exam
Constitutional: No Acute Distress
Cardiovascular: Regular Rate and S1/S2; Negative Murmur or Rub
Pulmonary: Clear and Symmetric; Negative Wheezes or Rales
Gastrointestinal: Soft, Non Tender, Non Distended and Normal Bowel Sounds
Skin: Warm and Dry; Negative Rash or Jaundice
Lines: PICC
Objective Data
Lab Data
Lab Results
12/29/24 05:04
12/29/24 05:04
Estimated Creat Clear 87 ml/min 12/29/24 05:04
Lactic Acid 1.5 mmol/L (0.7-2.0) 12/23/24 22:22
Total Bilirubin 0.7 mg/dl (0.2-1.3) 12/29/24 05:04
AST 63 U/L (17-59) H 12/29/24 05:04
ALT 118 U/L (0-50) H 12/29/24 05:04
Alkaline Phosphatase 407 U/L (38-126) H 12/29/24 05:04
Most recent labs reviewed.
Micro Results:
12/23/24 22:59 Blood Culture - Final
Blood/Venous No Growth - Final Report
12/23/24 22:59 Blood Culture - Final
Blood/Venous No Growth - Final Report
12/23/24 19:30 Influenza Types A & B (ETHEL) - Final
Nasal Swab Negative for Influenza A & B, NAAT
Negative results must be combined with clinical observations
and patient history.
Nucleic Acid Amplification test (NAAT)performed on the
[employer] platform.
[2024-12-29 14:12] LABS: Rheumatoid Agglutinin Less Than 10 IU (<10 IU)
--- NOTE | 2024-12-29 17:20 | W.PN.HOSP.TC ---
Today's Communication/Plan
-
outpt abx for 6 weeks
Assessment / Plan
Assessment / Plan
HPI: 74 y/o male past medical history of metastatic pleomorphic sarcoma, B-Cell CLL, hypertension, chronic pain and prior enterococcus urinary tract infection who presented with fever and positive blood cultures.
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 Patient was seen here
overnight from the to and discharged home with diagnosis of viral syndrome. He was sent back to the ED as the single blood culture drawn revealed gram positive cocci in pairs/chains. Patient denies any further episodes of diarrhea. He
denies cough or shortness of breath. He denies dysuria, urinary frequency or urgency.
A/P:
# Sepsis POA secondary to Community Acquired Enterococcal Bacteremia, ? Possible Endocarditis vs ?2/2 Urinary Tract Infection source
Single blood culture drawn on 12/22 with Enterococcus
Follow repeat blood cultures from 12/23-NGTD
Echo unrevealing: EF 55-60%. No obvious vegetation.
Changed to Rocephin 2 gms IV q12h and added ampicillin 2gms IV q4h per ID.
ID on board
PICC line placed
Discussed with Dr. Carlos, concern is chemoRx during acute infection. Discussed with Dr. Davila, who knows the patient well and who states that there will not be any issue in pt receiving his immunotherapy while on the antibiotics. made aware of
this information.
He is to get his preinfusion labs, CBC, CMP, T4 and TSH on Friday 12/29 and infusion on 01/01.
Await CM obtaining clearance to begin outpt abx therapy
# Chronic Pain with Opioid Dependence
Continue Butrans Patch
Continue gabapentin
Episode of probable regular a.fib morning of 12/26 at 1:15 am, converted to NSR. Discussed with Dr. Maxwell, will start Eliquis
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
Continue fluticasone/salmeterol
Continue montelukast
# Essential Hypertension
Continue metoprolol with hold parameters
# Metastatic Pleomorphic Sarcoma
Patient is due to follow-up scans this weeks
# Chronically Elevated Transaminases/Alkaline Phosphatase
Stable
DVT proph: Lovenox SQ
Code Status: Full Code
Dispo: will need PT if discharged to home
hopefully all insurance aspects completed by tomorrow and can be dc
DW at bedside, multiple concerns
Anticipated Discharge: 24 - 48 hours
Subjective/Interval History
-
Date of Service: December 29, 2024
Much more alert today
Objective Data
-
Labs:
Laboratory Results
12/29/24
05:04
WBC 13.5 H
Hgb 10.8 L
Hct 32.3 L
Plt Count 208
Sodium 135
Potassium 4.0
Chloride 103
Carbon Dioxide 22
BUN 20
Creatinine 0.7
Glucose 98
Calcium 8.4
Total Bilirubin 0.7
AST 63 H
ALT 118 H
Alkaline Phosphatase 407 H
Vital Signs:
Vital Signs
Temp Pulse Resp BP Pulse Ox
98.2 F 77 18 121/77 95
12/29/24 16:00 12/29/24 16:00 12/29/24 16:00 12/29/24 16:00 12/29/24 16:00
I&O
12/28/24 12/29/24 12/30/24
06:59 06:59 06:59
Intake Total 1464 / 1464 1884 / 1884
Output Total 2830 / 2830 2785 / 2785 1700 / 1700
Balance -1366 / -1366 -901 / -901 -1700 / -1700
Review of Systems
-
History Source: Patient and Family ( at bedside)
Constitutional: Denies Fever
EENT: Reports No Symptoms Reported
Respiratory: Reports No Symptoms
Cardiac: Reports No Symptoms
Abdomen/GI: Reports No Symptoms
Musculoskeletal: Reports Joint Pain (chronic back and hip pain)
Physical Exam
-
General: Well Developed, Well Nourished, No Apparent Distress and Appears Chronically Ill
HEENT: Normocephalic, Atraumatic and Moist Mucous Membranes
Respiratory: Clear to Auscultation; Negative Wheezes, Rales or Rhonchi
Cardiac: Regular Rhythm and S1/S2
GI: Soft, Nontender and Nondistended
Musculoskeletal: No Clubbing, No Cyanosis and No Edema
Neuro: Awake, Alert and Oriented
--- NOTE | 2024-12-29 17:50 | CM ---
CM follow up with Anuj Bond; admitted 12/23/2024. Pt needs home IV abx. He is current with [facility] and requests [facility]. Referral sent for infusion and a second referral sent for VN resumption.
Plan: CM to follow up regarding [facility] and [facility]fusion services. Central Intake: [phone]
[2024-12-29] MEDS: NEURONTIN 900 MG PO (20:14)
[2024-12-29] MEDS: SINGULAIR 10 MG PO (20:14)
[2024-12-30 02:52] VITALS: BP 127/79
[2024-12-30] MEDS: AMPICILLIN 108 MG IV ×6 (04:59→23:38)
[2024-12-30] MEDS: NEURONTIN 600 MG PO ×2 (05:00→17:19)
[2024-12-30] MEDS: STERILE WATER FOR INJECTION 20 ML IV ×2 (05:00→17:20)
[2024-12-30] MEDS: ROCEPHIN 2000 MG IV ×2 (05:00→17:20)
[2024-12-30 06:00] VITALS: BMI 24.5
[2024-12-30 06:54] VITALS: BP 140/86
[2024-12-30] MEDS: ADVAIR HFA 230/21 MCG INHALER 2 PUFF INH ×2 (07:10→19:21)
[2024-12-30] MEDS: ELIQUIS 5 MG PO ×2 (08:19→20:23)
[2024-12-30] MEDS: TOPROL XL 100 MG PO ×2 (08:19→20:24)
[2024-12-30] MEDS: NIASPAN TIME RELEASE 500 MG PO ×2 (08:19→20:30)
[2024-12-30] MEDS: FLUSH (NSS) 2 FLUSH IV ×3 (08:20→17:20)
--- NOTE | 2024-12-30 09:04 | CM ---
Addendum entered by Shaina Galarza 12/30/24 11:51:
Marizol from [facility] called and stated they can see the patient tomorrow at 4pm
Original Note:
Call from Marizol from [facility] ([phone])-she rec'd referral in [facility]
Stated patient/ agreeable to out of pocket cost for IV antibiotics
Faxed to her IV SCRIPT, PICC DATA & CXR PICC placement to [phone]
Referral also in careport for [facility]-spoke with Adalid
Marizol will be checking for their availability & get back to CM
PLAN: [facility] with [facility] when medically stable
[facility] Phone #: [phone], Fax #:[phone]
[facility] Fax #: [phone]
--- NOTE | 2024-12-30 09:17 | W.PN.ID1 ---
Date of Service
Date of Service: December 30, 2024
Today's Communication
- Continue Ampicillin 2g IV q4h and ceftriaxone 2 gm IV q12 x 6 weeks.
- stable for dc from ID perspective
Assessment / Plan
Community Acquired Enterococcal Bacteremia
Fever - resolved
Possible Endocarditis
Recent history of Enterococcal UTI
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
Possible Immunosuppression
- Continue Ampicillin 2g IV q4h and ceftriaxone 2 gm IV q12 x 6 weeks.
- Weekly CBC/diff and CMP to be done weekly and sent to my office while on OPAT
- double-lumen PICC in place
- submitted script to case assembler 12/25, additional copy on the paper chart
- some subtle difficulties with concentration, if progression will notify me and will plan change in antibiotics, given that memory changes are subtle, would not change antibiotics at this moment given improved efficacy with current combination
- stable for dc from ID perspective when home IV antibiotics are set up
Chief Complaint
-: Bacteremia
Subjective / Review of Systems
afebrile
bp stable
disappointed that cannot be discharged today
noting some subtle difficulties with cognition
AAOx3, able to follow inverted two step command, not able to spell world backwards
Vital Signs / Physical Exam
Vital Signs
Vital Signs
Temp Pulse Resp BP Pulse Ox
98.3 F 81 16 140/86 94
12/30/24 06:54 12/30/24 08:19 12/30/24 07:12 12/30/24 08:19 12/30/24 06:54
Physical Exam
Constitutional: No Acute Distress
Cardiovascular: Regular Rate and S1/S2; Negative Murmur or Rub
Pulmonary: Clear and Symmetric; Negative Wheezes or Rales
Gastrointestinal: Soft, Non Tender, Non Distended and Normal Bowel Sounds
Skin: Warm and Dry; Negative Rash or Jaundice
Lines: PICC (In place, no erythema, warmth, tenderness or drainage)
Objective Data
Lab Data
Lab Results
12/29/24 05:04
12/29/24 05:04
Estimated Creat Clear 87 ml/min 12/29/24 05:04
Lactic Acid 1.5 mmol/L (0.7-2.0) 12/23/24 22:22
Total Bilirubin 0.7 mg/dl (0.2-1.3) 12/29/24 05:04
AST 63 U/L (17-59) H 12/29/24 05:04
ALT 118 U/L (0-50) H 12/29/24 05:04
Alkaline Phosphatase 407 U/L (38-126) H 12/29/24 05:04
Most recent labs reviewed.
Micro Results:
12/23/24 22:59 Blood Culture - Final
Blood/Venous No Growth - Final Report
12/23/24 22:59 Blood Culture - Final
Blood/Venous No Growth - Final Report
12/23/24 19:30 Influenza Types A & B (ETHEL) - Final
Nasal Swab Negative for Influenza A & B, NAAT
Negative results must be combined with clinical observations
and patient history.
Nucleic Acid Amplification test (NAAT)performed on the
[employer] platform.
Care Review
Plan reviewed with: Physician (Dr Guadarrama - outpatient CTs to be rescheduled, home infusion not yet set up)
[2024-12-30 11:23] VITALS: BP 136/90
[2024-12-30 15:02] VITALS: BP 148/79
--- NOTE | 2024-12-30 15:22 | W.PN.HOSP.TC ---
Today's Communication/Plan
-
potential dc tomorrow
Assessment / Plan
Assessment / Plan
HPI: 74 y/o male past medical history of metastatic pleomorphic sarcoma, B-Cell CLL, hypertension, chronic pain and prior enterococcus urinary tract infection who presented with fever and positive blood cultures.
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 Patient was seen here
overnight from the to and discharged home with diagnosis of viral syndrome. He was sent back to the ED as the single blood culture drawn revealed gram positive cocci in pairs/chains. Patient denies any further episodes of diarrhea. He
denies cough or shortness of breath. He denies dysuria, urinary frequency or urgency.
A/P:
# Sepsis POA secondary to Community Acquired Enterococcal Bacteremia, ? Possible Endocarditis vs ?2/2 Urinary Tract Infection source
Single blood culture drawn on 12/22 with Enterococcus
Follow repeat blood cultures from 12/23-NGTD
Echo unrevealing: EF 55-60%. No obvious vegetation.
Changed to Rocephin 2 gms IV q12h and added ampicillin 2gms IV q4h per ID.
ID on board
PICC line placed
Discussed with Dr. Carlos, concern is chemoRx during acute infection. Discussed with Dr. Davila, who knows the patient well and who states that there will not be any issue in pt receiving his immunotherapy while on the antibiotics. made aware of
this information.
He is to get his preinfusion labs, CBC, CMP, T4 and TSH on Friday 12/29 and infusion on 01/01.
Await CM obtaining clearance to begin outpt abx therapy
# Chronic Pain with Opioid Dependence
Continue Butrans Patch
Continue gabapentin
Episode of probable regular a.fib morning of 12/26 at 1:15 am, converted to NSR. Discussed with Dr. Krakowski, will start Eliquis
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
Continue fluticasone/salmeterol
Continue montelukast
# Essential Hypertension
Continue metoprolol with hold parameters
# Metastatic Pleomorphic Sarcoma
Patient is due to follow-up scans this weeks
# Chronically Elevated Transaminases/Alkaline Phosphatase
Stable
DVT proph: Lovenox SQ
Code Status: Full Code
Dispo: will need PT if discharged to home
hopefully all insurance aspects completed by tomorrow and can be dc
Updated by CM, Home Care will be at the house by 4PM to teach the how to give the abx
Will consult VN at time of dc
DW , multiple concerns
Anticipated Discharge: Within 24 hours
Subjective/Interval History
-
Date of Service: December 30, 2024
Awake, alert
Objective Data
-
Vital Signs:
Vital Signs
Temp Pulse Resp BP Pulse Ox
98 F 81 18 136/90 95
12/30/24 11:23 12/30/24 11:23 12/30/24 11:23 12/30/24 11:23 12/30/24 11:23
I&O
12/29/24 12/30/24 12/31/24
06:59 06:59 06:59
Intake Total 1884 / 1884 1144 / 1144
Output Total 2785 / 2785 3075 / 3075
Balance -901 / -901 -193 / -1930
Review of Systems
-
History Source: Patient and Coordinated Provider
Constitutional: Denies Fever
EENT: Reports No Symptoms Reported
Respiratory: Reports No Symptoms
Cardiac: Reports No Symptoms
Abdomen/GI: Reports No Symptoms
Musculoskeletal: Reports Joint Pain (chronic back and hip pain)
Physical Exam
-
General: Well Developed, Well Nourished, No Apparent Distress and Appears Chronically Ill
HEENT: Normocephalic, Atraumatic and Moist Mucous Membranes
Respiratory: Clear to Auscultation; Negative Wheezes, Rales or Rhonchi
Cardiac: Regular Rhythm and S1/S2
GI: Soft, Nontender and Nondistended
Musculoskeletal: No Clubbing, No Cyanosis and No Edema
Neuro: Awake, Alert and Oriented
[2024-12-30] MEDS: NEURONTIN 900 MG PO (20:27)
[2024-12-30] MEDS: SINGULAIR 10 MG PO (20:28)
[2024-12-30] MEDS: COLACE 100 MG PO (20:40)
[2024-12-30 23:00] VITALS: BP 130/81
[2024-12-31] MEDS: AMPICILLIN 108 MG IV ×3 (03:43→12:14)
[2024-12-31] MEDS: NEURONTIN 600 MG PO (05:37)
[2024-12-31] MEDS: STERILE WATER FOR INJECTION 20 ML IV (05:37)
[2024-12-31] MEDS: ROCEPHIN 2000 MG IV (05:37)
[2024-12-31 06:00] VITALS: BMI 24.3
[2024-12-31] MEDS: ADVAIR HFA 230/21 MCG INHALER 2 PUFF INH (07:45)
[2024-12-31 08:04] VITALS: BP 140/92
[2024-12-31] MEDS: NIASPAN TIME RELEASE 500 MG PO (08:49)
[2024-12-31] MEDS: TOPROL XL 100 MG PO (08:49)
[2024-12-31] MEDS: ELIQUIS 5 MG PO (08:49)
[2024-12-31] MEDS: COLACE 100 MG PO (08:53)
--- NOTE | 2024-12-31 10:28 | W.PN.ID1 ---
Date of Service
Date of Service: December 31, 2024
Today's Communication
- stable for dc from ID perspective when home IV antibiotics are set up
Assessment / Plan
Community Acquired Enterococcal Bacteremia
Fever - resolved
Possible Endocarditis
Recent history of Enterococcal UTI
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
Possible Immunosuppression
- Continue Ampicillin 2g IV q4h and ceftriaxone 2 gm IV q12 x 6 weeks.
- Weekly CBC/diff and CMP to be done weekly and sent to my office while on OPAT
- double-lumen PICC in place
- submitted script to case planner 12/25, additional copy on the paper chart
- some subtle difficulties with concentration, if progression will notify me and will plan change in antibiotics, given that memory changes are subtle, would not change antibiotics at this moment given improved efficacy with current combination
- stable for dc from ID perspective when home IV antibiotics are set up
Chief Complaint
-: Bacteremia and Other (possible endocarditis)
Subjective / Review of Systems
afebrile
bp stable
tolerating current therapies
for OPAT training late this afternoon at home
reports improvement in cognition this am
Vital Signs / Physical Exam
Vital Signs
Vital Signs
Temp Pulse Resp BP Pulse Ox
98.2 F 80 18 140/92 93
12/31/24 08:04 12/31/24 08:04 12/31/24 08:04 12/31/24 08:04 12/31/24 08:04
Physical Exam
Constitutional: No Acute Distress and Chronically Ill
Cardiovascular: Regular Rate and S1/S2; Negative Murmur or Rub
Pulmonary: Clear and Symmetric; Negative Wheezes or Rales
Gastrointestinal: Soft, Non Tender, Non Distended and Normal Bowel Sounds
Skin: Warm and Dry; Negative Rash or Jaundice
Objective Data
Lab Data
Lab Results
12/29/24 05:04
12/29/24 05:04
Estimated Creat Clear 87 ml/min 12/29/24 05:04
Lactic Acid 1.5 mmol/L (0.7-2.0) 12/23/24 22:22
Total Bilirubin 0.7 mg/dl (0.2-1.3) 12/29/24 05:04
AST 63 U/L (17-59) H 12/29/24 05:04
ALT 118 U/L (0-50) H 12/29/24 05:04
Alkaline Phosphatase 407 U/L (38-126) H 12/29/24 05:04
Most recent labs reviewed.
Micro Results:
12/23/24 22:59 Blood Culture - Final
Blood/Venous No Growth - Final Report
12/23/24 22:59 Blood Culture - Final
Blood/Venous No Growth - Final Report
12/23/24 19:30 Influenza Types A & B (ETHEL) - Final
Nasal Swab Negative for Influenza A & B, NAAT
Negative results must be combined with clinical observations
and patient history.
Nucleic Acid Amplification test (NAAT)performed on the
[employer] platform.
Care Review
Plan reviewed with: Physician (Dr Thierry castillo)
[2024-12-31] MEDS: NON-FORMULARY ITEM 1 UNIT TRANSDERM (10:46)
[2024-12-31] MEDS: REMOVE PT OWN BUTRANS PATCH 1 PATCH REMOVE (10:47)
--- NOTE | 2024-12-31 12:32 | CM ---
Received message from Merry from [facility] who stated that they are checking to see if they can get a delivery for patient at 18:00 instead of 16:00 for start of care. She stated that she is waiting for their pharmacist to clarify orders
with the MD and if this does not happen soon, they may not be able to provide medications until tomorrow. She stated that if this gets too late, they may have to coordinate discharge tomorrow.
Plan: Case management will continue to follow and assist with discharge planning. Home with [facility] and VN services.
--- NOTE | 2024-12-31 13:32 | W.PN.HOSP.TC ---
Today's Communication/Plan
-
dc now
Assessment / Plan
Assessment / Plan
HPI: 74 y/o male past medical history of metastatic pleomorphic sarcoma, B-Cell CLL, hypertension, chronic pain and prior enterococcus urinary tract infection who presented with fever and positive blood cultures.
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 Patient was seen here
overnight from the to and discharged home with diagnosis of viral syndrome. He was sent back to the ED as the single blood culture drawn revealed gram positive cocci in pairs/chains. Patient denies any further episodes of diarrhea. He
denies cough or shortness of breath. He denies dysuria, urinary frequency or urgency.
A/P:
# Sepsis POA secondary to Community Acquired Enterococcal Bacteremia, ? Possible Endocarditis vs ?2/2 Urinary Tract Infection source
Single blood culture drawn on 12/22 with Enterococcus
Follow repeat blood cultures from 12/23-NGTD
Echo unrevealing: EF 55-60%. No obvious vegetation.
Changed to Rocephin 2 gms IV q12h and added ampicillin 2gms IV q4h per ID.
ID on board
PICC line placed
Discussed with Dr. Carlos, concern is chemoRx during acute infection. Discussed with Dr. Davila, who knows the patient well and who states that there will not be any issue in pt receiving his immunotherapy while on the antibiotics. made aware of
this information.
He is to get his preinfusion labs, CBC, CMP, T4 and TSH on Friday 12/29 and infusion on 01/01.
Await CM obtaining clearance to begin outpt abx therapy
# Chronic Pain with Opioid Dependence
Continue Butrans Patch
Continue gabapentin
Episode of probable regular a.fib morning of 12/26 at 1:15 am, converted to NSR. Discussed with Dr. Maxwell, will start Eliquis
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
Continue fluticasone/salmeterol
Continue montelukast
# Essential Hypertension
Continue metoprolol with hold parameters
# Metastatic Pleomorphic Sarcoma
Patient is due to follow-up scans this weeks
# Chronically Elevated Transaminases/Alkaline Phosphatase
Stable
DVT proph: Eliquis
Code Status: Full Code
Dispo: will need PT if discharged to home
DC now
Updated by CM, Home Care will be at the house by 4PM to teach the how to give the abx
Will consult VN at time of dc
DW , multiple concerns
More than 30 minutes spent in discharge including
Final examination of the patient
Summarizing hospital stay
Instructions for continuing care to all relevant caregivers
Preparation of discharge records, prescriptions, and referral forms
Total time spent (in minutes): 45
Anticipated Discharge: Today
Subjective/Interval History
-
Date of Service: December 31, 2024
Generally feels well
Objective Data
-
Vital Signs:
Vital Signs
Temp Pulse Resp BP Pulse Ox
98.2 F 80 18 140/92 93
12/31/24 08:04 12/31/24 08:04 12/31/24 08:04 12/31/24 08:04 12/31/24 08:04
I&O
12/30/24 12/31/24 01/01/25
06:59 06:59 06:59
Intake Total 1144 / 1144 1500 / 1500 300 / 300
Output Total 3075 / 3075 2625 / 2625 300 / 300
Balance -1931 / -1931 -1125 / -1125 0 / 0
Review of Systems
-
History Source: Patient and Coordinated Provider
Constitutional: Denies Fever
EENT: Reports No Symptoms Reported
Respiratory: Reports No Symptoms
Cardiac: Reports No Symptoms
Abdomen/GI: Reports No Symptoms
Musculoskeletal: Reports Joint Pain (chronic back and hip pain)
Physical Exam
-
General: Well Developed, Well Nourished, No Apparent Distress and Appears Chronically Ill
HEENT: Normocephalic, Atraumatic and Moist Mucous Membranes
Respiratory: Clear to Auscultation; Negative Wheezes, Rales or Rhonchi
Cardiac: Regular Rhythm and S1/S2
GI: Soft, Nontender and Nondistended
Musculoskeletal: No Clubbing, No Cyanosis and No Edema
Neuro: Awake, Alert and Oriented
--- NOTE | 2024-12-31 18:59 | W.DS.TRANS ---
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
-
Discharge Instructions:
Discharge Diagnosis/Procedures Sepsis/Bacteremia with Enterococcus
Diet Regular
Activity With assistance
Driving Restrictions No driving
Bathing Restrictions None
Blood Work CMP,ESR,CRP,CBC with diff weekly on Mondays
results to Dr. Slaughtre
Other Services VN,PT,OT
Instructions:
Stand-Alone Forms:
Changes to Home Medications: Yes
Discharge Medications:
DC Medications w/original date entered in [employer]
fluticasone 232 mcg-salmeterol 14 mcg/actuation breath activated powdr 1 ea IH BID Lung/Breathing Issues 11/10/21
adsnucqanuf-aqlwtvzvc-yse C-Mn 750 mg-600 mg-55 mg-5 mg tablet 1 tab PO DAILY Supplement 11/10/21
montelukast 10 mg tablet 10 mg PO HS Allergies 11/10/21
acetaminophen 500 mg tablet 1,000 mg PO QID Pain 12/23/24
buprenorphine 5 mcg/hour weekly transdermal patch 1 patch transdermal WE RYAN 12/23/24
gabapentin 300 mg capsule 600 mg PO BID@0600,1500 NEUROPATHIC PAIN 12/23/24
gabapentin 300 mg capsule 900 mg PO HS NEUROPATHIC PAIN 12/23/24
metoprolol succinate 100 mg tablet,extended release 24 hr 100 mg PO BID Blood Pressure 12/23/24
multivitamin 1 tab PO DAILY Supplement 12/23/24
niacin 500 mg tablet 500 mg PO BID Supplement 12/23/24
polyethylene glycol 3350 17 gram oral powder packet 17 g PO DAILYPRN PRN constipation 12/23/24
Ampicillin 2,000 mg 108 mls/hr IV Q4H 12/31/24
apixaban 5 mg tablet (Eliquis) 5 mg PO BID #60 tabs 12/31/24
ceftriaxone 2 gram intravenous solution 2 g IV Q12H 12/31/24
docusate sodium 100 mg capsule 100 mg PO BIDPRN PRN constipation #0 caps 12/31/24
Home Medication Changes
Eliquis started
Ampicillin and Ceftriaxone have been ordered
Pending Results: No
== END 2024-12-31 14:35 | disposition home health service (06) | DRG 872 ==
LOC: 4 EAST ACU 23:31
PROVIDERS: Emergency Medicine; Internal Medicine; Physician Assistant Medical; Registered Nurse; ADMITTING PHYSICIAN Hospitalist; ATTENDING PHYSICIAN Internal Medicine; CONSULT PHYSICIAN Student in an Organized Health Care Education/Training Program; EMERGENCY PHYSICIAN Emergency Medicine; FAMILY PHYSICIAN Physician Assistant Medical; OTHER PHYSICIAN Internal Medicine Cardiovascular Disease
PROC: 02HV33Z Insertion of Infusion Device into Superior Vena Cava, Percutaneous Approach (ICD-10-PCS; 2024-12-26)
PROC: B5181ZA Fluoroscopy of Superior Vena Cava using Low Osmolar Contrast, Guidance (ICD-10-PCS; 2024-12-26)
DX: A41.81 Sepsis due to Enterococcus (principal); C79.51 Secondary malignant neoplasm of bone; C91.10 Chronic lymphocytic leukemia of B-cell type not having achieved remission; F11.20 Opioid dependence, uncomplicated; N39.0 Urinary tract infection, site not specified; I38 Endocarditis, valve unspecified; I47.20 Ventricular tachycardia, unspecified; I48.91 Unspecified atrial fibrillation; G89.29 Other chronic pain; J45.909 Unspecified asthma, uncomplicated; I10 Essential (primary) hypertension; K21.9 Gastro-esophageal reflux disease without esophagitis; Z85.46 Personal history of malignant neoplasm of prostate; Z87.442 Personal history of urinary calculi; I34.0 Nonrheumatic mitral (valve) insufficiency; I70.0 Atherosclerosis of aorta; G47.33 Obstructive sleep apnea (adult) (pediatric); Z85.828 Personal history of other malignant neoplasm of skin; Z88.0 Allergy status to penicillin; B95.2 Enterococcus as the cause of diseases classified elsewhere; Z79.899 Other long term (current) drug therapy
CPT/HCPCS: 71045; 71046; 80048; 80053; 81003; 81015; 82248; 83605; 84439; 84443; 85025; 85027; 86430; 86803; 87040; 87077; 87086; 87186; 87205; 87502; 87811; 93005; 93306; 94640; 96360; 96374; 97116; 97163; 97167; 99284; 99285

== ENCOUNTER → 2025-01-06 13:34 | Outpatient (REF) | payer MEDICARE, OTHER, SELFPAY | LOC: RAD 13:34 | PROVIDERS: ATTENDING PHYSICIAN Internal Medicine; FAMILY PHYSICIAN Family Medicine; REFERRING PHYSICIAN Internal Medicine Hematology & Oncology | DX: C80.1 Malignant (primary) neoplasm, unspecified (principal) | CPT/HCPCS: 70491; 71260; 74177; Q9967 ==

== ENCOUNTER → 2025-02-02 09:35 | Outpatient (REF) | payer MEDICARE, OTHER, SELFPAY ==
[2025-02-02 10:48] LABS: % Basophils 1.3 % (0-2); % Eosinophils 3.8 % (0-6); % Immature Granulocytes 0.4 % (0-0.5); % Lymphocytes 12.3 % (20.5-51.1); % Neutrophils 69.2 % (42.2-75.2); Absolute Basophils 0.1 10^3/uL (0-0.2); Absolute Eosinophils 0.3 10^3/uL (0-0.7); Absolute Lymphocytes 0.8 10^3/uL (1.2-3.4); Absolute Monocytes 0.9 10^3/uL (0.1-0.6); Absolute Neutrophils 4.7 10^3/uL (1.4-6.5); Hematocrit 37.4 % (39.0-52.0); Mean Corp Hgb Conc. 32.1 g/dL (33.0-37.0); Mean Corpuscular Hgb 29.1 pg (27.0-31.0); Mean Corpuscular Volume 90.6 fL (80.0-94.0); Mean Platelet Volume 9.3 fL (7.4-10.4); Nucleated Red Blood Cells % 0 % (-); Platelet Count 197 10^3/uL (130-400); Red Blood Cell Count 4.13 10^6/uL (4.70-6.10); Red Cell Dist. Width 17.8 % (11.5-14.5); White Blood Cell Count 6.8 10^3/uL (4.8-10.8)
[2025-02-02 11:43] LABS: ALT (SGPT) 33 U/L (0-50); AST (SGOT) 44 U/L (17-59); Albumin 4.4 g/dl (3.5-5.0); Alkaline Phosphatase 242 U/L (38-126); Blood Urea Nitrogen 21 mg/dl (9-20); Calcium 9.3 mg/dl (8.4-10.2); Carbon Dioxide 24 mmol/L (22-30); Chloride 105 mmol/L (98-107); Glucose 120 mg/dl (70-99); Potassium 4.7 mmol/L (3.5-5.1); Sodium 138 mmol/L (135-145); Total Bilirubin 0.6 mg/dl (0.2-1.3); Total Protein 6.6 g/dl (6.3-8.2); eGFR > 60.00
== END ==
LOC: REG 09:35
PROVIDERS: ATTENDING PHYSICIAN Internal Medicine Hematology & Oncology; FAMILY PHYSICIAN Family Medicine
DX: C91.10 Chronic lymphocytic leukemia of B-cell type not having achieved remission (principal); D80.1 Nonfamilial hypogammaglobulinemia; C44.310 Basal cell carcinoma of skin of unspecified parts of face; D59.9 Acquired hemolytic anemia, unspecified; C49.9 Malignant neoplasm of connective and soft tissue, unspecified; C79.51 Secondary malignant neoplasm of bone
CPT/HCPCS: 36415; 80053; 85025

== ENCOUNTER → 2025-02-23 12:02 | Outpatient (REF) | payer MEDICARE, OTHER, SELFPAY ==
[2025-02-23 15:37] LABS: % Basophils 0.9 % (0-2); % Eosinophils 2.6 % (0-6); % Immature Granulocytes 0.4 % (0-0.5); % Lymphocytes 14.6 % (20.5-51.1); % Monocytes 12.6 % (1.7-9.3); % Neutrophils 68.9 % (42.2-75.2); Absolute Basophils 0.1 10^3/uL (0-0.2); Absolute Eosinophils 0.2 10^3/uL (0-0.7); Absolute Monocytes 0.9 10^3/uL (0.1-0.6); Absolute Neutrophils 4.8 10^3/uL (1.4-6.5); Hematocrit 38.2 % (39.0-52.0); Hemoglobin 12.6 g/dL (13.0-18.0); Mean Corpuscular Hgb 29.4 pg (27.0-31.0); Mean Platelet Volume 9.6 fL (7.4-10.4); Nucleated Red Blood Cells % 0 % (-); Platelet Count 224 10^3/uL (130-400); Red Blood Cell Count 4.29 10^6/uL (4.70-6.10); Red Cell Dist. Width 17.2 % (11.5-14.5); White Blood Cell Count 6.9 10^3/uL (4.8-10.8)
[2025-02-23 16:21] LABS: ALT (SGPT) 53 U/L (0-50); AST (SGOT) 59 U/L (17-59); Albumin 4.6 g/dl (3.5-5.0); Alkaline Phosphatase 271 U/L (38-126); Blood Urea Nitrogen 22 mg/dl (9-20); Calcium 9.3 mg/dl (8.4-10.2); Carbon Dioxide 22 mmol/L (22-30); Chloride 105 mmol/L (98-107); Glucose 105 mg/dl (70-99); Potassium 4.5 mmol/L (3.5-5.1); Sodium 135 mmol/L (135-145); Total Bilirubin 0.6 mg/dl (0.2-1.3); Total Protein 6.7 g/dl (6.3-8.2); eGFR > 60.00
[2025-02-23 16:42] LABS: TSH Reflex To Free T4 4.19 uIU/ml (0.47-4.68)
== END ==
LOC: HWLAB 12:02
PROVIDERS: ATTENDING PHYSICIAN Internal Medicine Hematology & Oncology; FAMILY PHYSICIAN Family Medicine
DX: C91.10 Chronic lymphocytic leukemia of B-cell type not having achieved remission (principal); D80.1 Nonfamilial hypogammaglobulinemia; C44.310 Basal cell carcinoma of skin of unspecified parts of face; D59.9 Acquired hemolytic anemia, unspecified; C49.9 Malignant neoplasm of connective and soft tissue, unspecified; C79.51 Secondary malignant neoplasm of bone; I10 Essential (primary) hypertension
CPT/HCPCS: 36415; 80053; 84443; 85025

== ENCOUNTER → 2025-03-10 17:27 | Outpatient (REF) | payer MEDICARE, OTHER, SELFPAY | LOC: MRI 17:27 | PROVIDERS: ATTENDING PHYSICIAN Nurse Practitioner Adult Health; FAMILY PHYSICIAN Family Medicine | DX: C91.10 Chronic lymphocytic leukemia of B-cell type not having achieved remission (principal); D80.1 Nonfamilial hypogammaglobulinemia; C44.310 Basal cell carcinoma of skin of unspecified parts of face; D59.9 Acquired hemolytic anemia, unspecified; C49.9 Malignant neoplasm of connective and soft tissue, unspecified; C79.51 Secondary malignant neoplasm of bone; R53.82 Chronic fatigue, unspecified | CPT/HCPCS: 70553; A9575 ==

== ENCOUNTER → 2025-03-16 16:37 | Outpatient (REF) | payer MEDICARE, OTHER, SELFPAY ==
[2025-03-16 17:40] LABS: Hematocrit 38.3 % (39.0-52.0); Hemoglobin 12.8 g/dL (13.0-18.0); Mean Corp Hgb Conc. 33.4 g/dL (33.0-37.0); Mean Corpuscular Volume 89.3 fL (80.0-94.0); Nucleated Red Blood Cells % 0 % (-); Platelet Count 201 10^3/uL (130-400); Red Cell Dist. Width 17.4 % (11.5-14.5)
[2025-03-16 18:01] LABS: ALT (SGPT) 89 U/L (0-50); AST (SGOT) 77 U/L (17-59); Albumin 4.6 g/dl (3.5-5.0); Alkaline Phosphatase 296 U/L (38-126); Blood Urea Nitrogen 21 mg/dl (9-20); Calcium 9.6 mg/dl (8.4-10.2); Carbon Dioxide 23 mmol/L (22-30); Chloride 101 mmol/L (98-107); Glucose 86 mg/dl (70-99); Potassium 4.7 mmol/L (3.5-5.1); Sodium 133 mmol/L (135-145); Total Protein 6.8 g/dl (6.3-8.2); eGFR > 60.00
== END ==
LOC: REG 16:37
PROVIDERS: ATTENDING PHYSICIAN Internal Medicine Hematology & Oncology; FAMILY PHYSICIAN Family Medicine
DX: C91.10 Chronic lymphocytic leukemia of B-cell type not having achieved remission (principal); D80.1 Nonfamilial hypogammaglobulinemia; C44.310 Basal cell carcinoma of skin of unspecified parts of face; D59.9 Acquired hemolytic anemia, unspecified; C49.9 Malignant neoplasm of connective and soft tissue, unspecified; C79.51 Secondary malignant neoplasm of bone; I10 Essential (primary) hypertension
CPT/HCPCS: 36415; 80053; 85025

== ENCOUNTER → 2025-03-24 19:22 | Outpatient (REF) | payer MEDICARE, OTHER, SELFPAY | LOC: MRI 19:22 | PROVIDERS: ATTENDING PHYSICIAN Nurse Practitioner Adult Health; FAMILY PHYSICIAN Internal Medicine Hematology & Oncology | DX: C91.10 Chronic lymphocytic leukemia of B-cell type not having achieved remission (principal); D80.1 Nonfamilial hypogammaglobulinemia; C44.310 Basal cell carcinoma of skin of unspecified parts of face; D59.9 Acquired hemolytic anemia, unspecified; C49.9 Malignant neoplasm of connective and soft tissue, unspecified; C79.51 Secondary malignant neoplasm of bone; R53.82 Chronic fatigue, unspecified | CPT/HCPCS: 72158; A9575 ==

== ENCOUNTER → 2025-04-06 11:35 | Outpatient (REF) | payer MEDICARE, OTHER, SELFPAY ==
[2025-04-06 16:00] LABS: Hematocrit 40.8 % (39.0-52.0); Hemoglobin 13.5 g/dL (13.0-18.0); Mean Corp Hgb Conc. 33.1 g/dL (33.0-37.0); Mean Corpuscular Volume 90.5 fL (80.0-94.0); Nucleated Red Blood Cells % 0.2 % (-); Platelet Count 211 10^3/uL (130-400); Red Cell Dist. Width 17.3 % (11.5-14.5)
[2025-04-06 16:10] LABS: ALT (SGPT) 316 U/L (0-50); AST (SGOT) 161 U/L (17-59); Albumin 4.5 g/dl (3.5-5.0); Alkaline Phosphatase 265 U/L (38-126); Blood Urea Nitrogen 23 mg/dl (9-20); Calcium 9.4 mg/dl (8.4-10.2); Carbon Dioxide 23 mmol/L (22-30); Chloride 99 mmol/L (98-107); Glucose 98 mg/dl (70-99); Potassium 4.1 mmol/L (3.5-5.1); Sodium 132 mmol/L (135-145); Total Protein 6.8 g/dl (6.3-8.2); eGFR > 60.00
== END ==
LOC: HWLAB 11:35
PROVIDERS: ATTENDING PHYSICIAN Internal Medicine Hematology & Oncology; FAMILY PHYSICIAN Family Medicine
DX: C91.10 Chronic lymphocytic leukemia of B-cell type not having achieved remission (principal); D80.1 Nonfamilial hypogammaglobulinemia; C44.310 Basal cell carcinoma of skin of unspecified parts of face; D59.9 Acquired hemolytic anemia, unspecified; C49.9 Malignant neoplasm of connective and soft tissue, unspecified; C79.51 Secondary malignant neoplasm of bone; I10 Essential (primary) hypertension
CPT/HCPCS: 80053; 84443; 85025

== ENCOUNTER → 2025-04-13 11:50 | Outpatient (REF) | payer MEDICARE, OTHER, SELFPAY ==
[2025-04-13 16:06] LABS: Hematocrit 40.9 % (39.0-52.0); Hemoglobin 13.4 g/dL (13.0-18.0); Mean Corp Hgb Conc. 32.8 g/dL (33.0-37.0); Mean Corpuscular Volume 92.5 fL (80.0-94.0); Nucleated Red Blood Cells % 0 % (-); Platelet Count 169 10^3/uL (130-400); Red Cell Dist. Width 18.0 % (11.5-14.5)
[2025-04-13 16:17] LABS: ALT (SGPT) 244 U/L (0-50); AST (SGOT) 97 U/L (17-59); Albumin 4.1 g/dl (3.5-5.0); Alkaline Phosphatase 231 U/L (38-126); Blood Urea Nitrogen 27 mg/dl (9-20); Calcium 9.5 mg/dl (8.4-10.2); Carbon Dioxide 24 mmol/L (22-30); Chloride 99 mmol/L (98-107); Glucose 106 mg/dl (70-99); Potassium 4.2 mmol/L (3.5-5.1); Sodium 132 mmol/L (135-145); Total Protein 6.4 g/dl (6.3-8.2); eGFR > 60.00
== END ==
LOC: HWLAB 11:50
PROVIDERS: ATTENDING PHYSICIAN Internal Medicine Hematology & Oncology; FAMILY PHYSICIAN Family Medicine
DX: C91.10 Chronic lymphocytic leukemia of B-cell type not having achieved remission (principal); D80.1 Nonfamilial hypogammaglobulinemia; C44.310 Basal cell carcinoma of skin of unspecified parts of face; D59.9 Acquired hemolytic anemia, unspecified; C49.9 Malignant neoplasm of connective and soft tissue, unspecified; C79.51 Secondary malignant neoplasm of bone
CPT/HCPCS: 36415; 80053; 85025

== ENCOUNTER → 2025-04-20 12:10 | Outpatient (REF) | payer MEDICARE, OTHER, SELFPAY ==
[2025-04-20 15:19] LABS: Hematocrit 42.8 % (39.0-52.0); Hemoglobin 14.3 g/dL (13.0-18.0); Mean Corp Hgb Conc. 33.4 g/dL (33.0-37.0); Mean Corpuscular Volume 92.2 fL (80.0-94.0); Nucleated Red Blood Cells % 0 % (-); Platelet Count 157 10^3/uL (130-400); Red Cell Dist. Width 17.7 % (11.5-14.5)
[2025-04-20 15:25] LABS: ALT (SGPT) 211 U/L (0-50); AST (SGOT) 76 U/L (17-59); Albumin 4.3 g/dl (3.5-5.0); Alkaline Phosphatase 237 U/L (38-126); Blood Urea Nitrogen 30 mg/dl (9-20); Calcium 9.1 mg/dl (8.4-10.2); Carbon Dioxide 25 mmol/L (22-30); Chloride 99 mmol/L (98-107); Glucose 84 mg/dl (70-99); Potassium 4.7 mmol/L (3.5-5.1); Sodium 131 mmol/L (135-145); Total Protein 6.6 g/dl (6.3-8.2); eGFR > 60.00
== END ==
LOC: HWLAB 12:10
PROVIDERS: ATTENDING PHYSICIAN Internal Medicine Hematology & Oncology; FAMILY PHYSICIAN Family Medicine
DX: C91.10 Chronic lymphocytic leukemia of B-cell type not having achieved remission (principal); D80.1 Nonfamilial hypogammaglobulinemia; C44.310 Basal cell carcinoma of skin of unspecified parts of face; D59.9 Acquired hemolytic anemia, unspecified; C49.9 Malignant neoplasm of connective and soft tissue, unspecified; C79.51 Secondary malignant neoplasm of bone; I48.91 Unspecified atrial fibrillation
CPT/HCPCS: 36415; 80053; 84443; 85025